=== PATIENT | female | born 1935 | race Two or more races ===

== ENCOUNTER 2017-07-23 18:41 | Inpatient (IN) | payer MEDICARE ==
[~2017-07-23] VITALS: Ht 152.4 cm; Wt 56.3 kg
[2017-07-23] VITALS (8 sets, daily range): BP systolic 104–124; BP diastolic 51–73
[2017-07-23 18:59] LABS: POTASSIUM ISTAT 5.4 mmol/L (3.5-5.0)
[2017-07-23] MEDS ORDERED: PROPOFOL 50 ML IV ONE ×2 (19:12→19:30)
[2017-07-23 19:14] LABS: BASO % 0 % (0-3); EOS % 2 % (0-3); HEMATOCRIT 32.9 % (36.0-47.0); HEMOGLOBIN 10.7 g/dL (12.0-15.5); LYMPH # 2.9 x10^3/uL (1.0-4.8); LYMPH % 21 % (24-48); MEAN CORPUSCULAR HEMOGLOBIN 32 pg (25-35); MEAN CORPUSCULAR HGB CONC 33 g/dL (31-37); MEAN CORPUSCULAR VOLUME 97 fL (79-100); MONO % 6 % (0-9); NEUT % 71 % (31-73); PLATELET COUNT 184 x10^3/uL (140-400); RED BLOOD COUNT 3.38 x10^6/uL (3.50-5.40); RED CELL DISTRIBUTION WIDTH 15.4 % (11.5-14.5)
[2017-07-23] MEDS ORDERED: IV NORMAL SALINE 500ML BAG 500 ML IV ONE ×2 (19:15→22:30)
[2017-07-23] MEDS ORDERED: ROCURONIUM 50 MG/5 ML VIAL. IV ONE (19:15)
[2017-07-23 19:24] LABS: HCO3 ABG 18 mmol/L (21-28); PCO2 ABG 44 mmHg (35-46); PH ABG 7.23 (7.35-7.45); PO2 ABG 84 mmHg (65-108); SAT O2 ABG 94 % (92-99)
[2017-07-23] MEDS ORDERED: VANCOMYCIN 1.25 GM in IV NORMAL SALINE 250ML 250 ML IV ONE (19:45)
[2017-07-23 19:51] LABS: INR 1.1 (0.8-1.1); PROTHROMBIN TIME PATIENT 13.7 SEC (11.7-14.0)
[2017-07-23] MEDS ORDERED: VANCOMYCIN 1.75 GM in IV DEXTROSE 5% 500 ML IV ONE (20:00)
[2017-07-23] MEDS ORDERED: ASPIRIN 300 MG SUPP.RECT PR ONE (20:00)
[2017-07-23] MEDS ORDERED: CEFEPIME HCL 1 GM in IV DEXTROSE 5% 50 ML IV ONE (20:00)
[2017-07-23] MEDS: IV NORMAL SALINE 1000ML BAG 1,000 ML IV SCH (20:10)
--- NOTE | 2017-07-23 20:14 | RAD ---
CT scan of the head without contrast 07/23/2017 Clinical History: Unresponsiveness. Technique: Unenhanced, contiguous, 5 mm axial sections were obtained through the head. Findings: No previous imaging studies are available for comparison. There is generalized parenchymal atrophy. Areas of decreased attenuation are seen within the periventricular and subcortical white matter of both cerebral hemispheres consistent with areas of small vessel ischemic disease. No acute parenchymal abnormality is seen. No extra-axial fluid collection is noted. No skull fracture is seen. Impression: No acute intracranial abnormality is seen. Electronically signed by: Kin Boateng MD (07/23/2017 8:11 PM) [facility]
[2017-07-23] MEDS ORDERED: IV NORMAL SALINE 1000ML BAG 1,000 ML IV ONE (20:30)
--- NOTE | 2017-07-23 20:31 | PHYS DOC ---
Past Medical History Past Medical History: CAD, Diabetes-Type I, Diabetes-Type II, GERD, High Cholesterol, Hypertension, Pneumonia, Renal Failure, Vascular Disease Past Surgical History: Other Additional Past Surgical Histo: carotid endarterectomy yesterday, coronary stents Alcohol Use: None Drug Use: None Social History Narrative: unknown-pt is unresponsive at this time Adult General Chief Complaint Chief Complaint: RESP ARREST HPI HPI Patient is a 81 year old female who presents with acute respiratory failure, apparently was dismissed from [facility] around 1 PM today postop from right carotid endarterectomy yesterday; arrived at home and was sleepy woke up with a subjective fever took some Tylenol and then woke up short time later with severe shortness of breath and she requested the eminence be called. Patient arrived with oxygen saturations of around 70% with accessory muscle use and poor air exchange with decreased mental status. No reports of chest pain or vomiting. History physical review of systems limited by patient's acuity and altered mentation. Family arrived sometime after the patient and more history was obtained from family members. Around 1 month ago patient was admitted to [facility] with an acute stroke at that time she was evaluated and found to have 70% blockage in the left carotid and 80% blockage in the right, history of coronary artery stents with diffuse coronary disease needing CABG but has not received yet due to the need for carotid surgery. History of renal insufficiency but unknown baseline creatinine. History of insulin-dependent diabetes. Takes Plavix. Per family patient is a full code. Review of Systems Review of Systems Constitutional: Denies fever or chills [] Eyes: Denies change in visual acuity, redness, or eye pain [] HENT: Denies nasal congestion or sore throat [] Respiratory: Denies cough or shortness of breath [] Cardiovascular: No additional information not addressed in HPI [] GI: Denies abdominal pain, nausea, vomiting, bloody stools or diarrhea [] : Denies dysuria or hematuria [] Musculoskeletal: Denies back pain or joint pain [] Integument: Denies rash or skin lesions [] Neurologic: Denies headache, focal weakness or sensory changes [] Endocrine: Denies polyuria or polydipsia [] Current Medications Current Medications Current Medications Medications (Trade) Dose Ordered Sig/Beryl Start Time Stop Time Status Last Admin Dose Admin Propofol 50 ml @ 0 mls/hr 1X ONCE 07/23/17 19:30 07/23/17 19:31 DC 07/23/17 19:30 9 MLS/HR Rocuronium [place] (Zemuron) 50 mg 1X ONCE 07/23/17 19:15 07/23/17 19:16 DC Sodium Chloride 500 ml @ 500 mls/hr 1X ONCE 07/23/17 19:15 07/23/17 20:14 DC 07/23/17 20:16 500 MLS/HR Vancomycin HCl 1.25 gm/Sodium Chloride 250 ml @ 166.667 mls/hr 1X ONCE 07/23/17 19:45 07/23/17 21:14 UNV Allergies Allergies Allergies Coded Allergies Type Severity Reaction Last Updated Verified ibuprofen Allergy Intermediate 07/23/17 Yes morphine Allergy Intermediate 07/23/17 Yes Physical Exam Physical Exam Constitutional: Well developed, well nourished, no acute distress, non-toxic appearance. [] HENT: Normocephalic, atraumatic, bilateral external ears normal, oropharynx moist, no oral exudates, nose normal. [] Eyes: PERRLA, EOMI, conjunctiva normal, no discharge. [] Neck: Normal range of motion, no tenderness, supple, no stridor. [] Cardiovascular:Heart rate regular rhythm, no murmur [] Lungs & Thorax: Bilateral breath sounds clear to auscultation [] Abdomen: Bowel sounds normal, soft, no tenderness, no masses, no pulsatile masses. [] Skin: Warm, dry, no erythema, no rash. [] Back: No tenderness, no CVA tenderness. [] Extremities: No tenderness, no cyanosis, no clubbing, ROM intact, no edema. [] Neurologic: Alert and oriented X 3, normal motor function, normal sensory function, no focal deficits noted. [] Psychologic: Affect normal, judgement normal, mood normal. [] Current Patient Data Vital Signs Vital Signs Date Time Temp Pulse Resp B/P (MAP) Pulse Ox O2 Delivery O2 Flow Rate FiO2 07/23/17 19:47 98 156/69 (98) 98 Ventilator 15.0 07/23/17 18:45 101.1 16 101.1 Lab Values Laboratory Tests Test 07/23/17 18:47 07/23/17 18:52 07/23/17 18:53 07/23/17 19:20 White Blood Count 14.0 x10^3/uL (4.0-11.0) H Red Blood Count 3.38 x10^6/uL (3.50-5.40) L Hemoglobin 10.7 g/dL (12.0-15.5) L Hematocrit 32.9 % (36.0-47.0) L Mean Corpuscular Volume 97 fL (79-100) Mean Corpuscular Hemoglobin 32 pg (25-35) Mean Corpuscular Hemoglobin Concent 33 g/dL (31-37) Red Cell Distribution Width 15.4 % (11.5-14.5) H Platelet Count 184 x10^3/uL (140-400) Neutrophils (%) (Auto) 71 % (31-73) Lymphocytes (%) (Auto) 21 % (24-48) L Monocytes (%) (Auto) 6 % (0-9) Eosinophils (%) (Auto) 2 % (0-3) Basophils (%) (Auto) 0 % (0-3) Neutrophils # (Auto) 9.9 x10^3uL (1.8-7.7) H Lymphocytes # (Auto) 2.9 x10^3/uL (1.0-4.8) Monocytes # (Auto) 0.9 x10^3/uL (0.0-1.1) Eosinophils # (Auto) 0.2 x10^3/uL (0.0-0.7) Basophils # (Auto) 0.0 x10^3/uL (0.0-0.2) Prothrombin Time 13.7 SEC (11.7-14.0) Prothrombin Time INR 1.1 (0.8-1.1) PTT 28 SEC (24-38) Lactic Acid Level 5.2 mmol/L (0.4-2.0) *H POC Troponin I 0.69 ng/ml (<0.08) POC Hemoglobin 11.2 g/dL (12-15) L POC Hematocrit 33 % (36-40) L POC Sodium 135 mmol/L (135-145) POC Potassium 5.4 mmol/L (3.5-5.0) H POC Chloride 106 mmol/L (98-110) POC Total CO2 18 mmol/L (23-32) L Anion Gap 17 mmol/L (6-14) H POC Blood Urea Nitrogen 44 mg/dL (8-26) H POC Creatinine 2.6 mg/dL (0.5-1.4) H Glucose Level 214 mg/dL (70-99) H POC Ionized Calcium (Warner) 1.04 mmol/L (1.13-1.32) L O2 Saturation 94 % (92-99) Arterial Blood pH 7.23 (7.35-7.45) L Arterial Blood pCO2 at Patient Temp 44 mmHg (35-46) Arterial Blood pO2 at Patient Temp 84 mmHg (65-108) Arterial Blood HCO3 18 mmol/L (21-28) L Arterial Blood Base Excess -9 mmol/L (-3-3) L FiO2 100 Laboratory Tests 07/23/17 18:47 Laboratory Tests 07/23/17 18:53 EKG EKG EKG shows sinus rhythm rate of 100 ST segment depression in V3 through V6 suggestive of possible ischemia no STEMI no Q waves QTC normal. My interpretation[] Radiology/Procedures Radiology/Procedures Chest x-ray demonstrates endotracheal tube in good position NG tube in the stomach with what appears to be a left lung infiltrate my interpretation[] Course & Med Decision Making Course & Med Decision Making Pertinent Labs and Imaging studies reviewed. (See chart for details) [Critical care time 70 minutes outside of separately billable procedures Patient was placed on BiPAP on arrival but with minimal improvement in terms O2 sats the maximum was around 80% patient still struggle to breathe so we shortly thereafter performed endotracheal intubation without complication. Patient was given IV fluids although we were judicious in terms of not giving her too much fluid given her history of CHF. She was given broad-spectrum antibiotics for her healthcare associated pneumonia. NG and Neville catheter were placed. Patient is making urine. Her oxygen level responded well to intubation. CT head excluded obvious bleed or stroke. The patient was given rectal aspirin for her NSTEMI. Extensive discussion with the family regarding poor prognosis given her multiple organ system failures. Contacted by phone the partner of Dr. Ruiz vascular surgeon. Contacted by phone the hospitalist Matthew, did present to the emergency department to see the patient here. Consultations were placed to cardiology, pulmonology, and nephrology. Procedure endotracheal intubation:] She was preoxygenated, given etomidate and succinylcholine, 7.5 endotracheal tube was placed using a Mac 4 blade no complications. She tolerated well. End-tidal CO2 was detected, equal breath sounds, fogging of the tube to confirm placement. Post intubation chest x-ray showed good placement. Dragon Disclaimer Dragon Disclaimer This electronic medical record was generated, in whole or in part, using a voice recognition dictation system. Departure Departure Impression: Primary Impression: Respiratory failure Additional Impressions: HCAP (healthcare-associated pneumonia) Acute renal failure NSTEMI (non-ST elevated myocardial infarction) Disposition: 09 ADMITTED INPATIENT Admitting Physician: Galen Castro Condition: CRITICAL Problem Qualifiers GRISELDA MENG MD Jul 23, 2017 20:31
[2017-07-23 21:48] LABS: FIO2 ABG 100
[2017-07-23 22:05] LABS: HCO3 ABG 18 mmol/L (21-28); PCO2 ABG 34 mmHg (35-46); PO2 ABG 65 mmHg (65-108); SAT O2 ABG 91 % (92-99)
[2017-07-23 22:22] LABS: FIO2 ABG 60; PH ABG 7.33 (7.35-7.45)
[2017-07-23] MEDS: PROPOFOL 100 ML IV PRN (22:43)
[2017-07-24] VITALS (23 sets, daily range): BP systolic 111–160; BP diastolic 47–81
--- NOTE | 2017-07-24 00:04 | HP ---
ADMIT DATE: 07/23/2017 CHIEF COMPLAINT: Respiratory distress. HISTORY OF PRESENT ILLNESS: The patient is a pleasant 81-year-old female who just had a right carotid endarterectomy yesterday at [facility]. She presented to the ER with respiratory failure. They tried BiPAP in the ER, but that did not work, they intubated her. She appears to have acute on chronic systolic and diastolic heart failure. Her BNP level is 5300. She also is having some azotemia with a BUN and creatinine of 38 and 1.2. She has some ST changes on her EKG. I have discussed the case with the ER physician. We are going to admit the patient to the ICU with consultation to Cardiology and Pulmonary Medicine. It should be noted she also has pneumonia on her chest x-ray. PAST MEDICAL HISTORY: CHF, diabetes, hypertension, coronary artery disease, hyperlipidemia, pneumonia. She had a carotid endarterectomy just yesterday at [facility], cardiac stents. ALLERGIES: IBUPROFEN, MORPHINE. FAMILY HISTORY: Diabetes. SOCIAL HISTORY: She does not drink, smoke or take drugs. MEDICATIONS: Reviewed. REVIEW OF SYSTEMS: Unobtainable, the patient is on the vent. PHYSICAL EXAMINATION: VITAL SIGNS: Temperature afebrile, pulse 100, respirations 20, blood pressure 124/60, O2 sat 99%. She is on a ventilator, 100% oxygen. HEART: Normal S1, S2. LUNGS: Diminished with right crackles. ABDOMEN: Soft, positive bowel sounds. EXTREMITIES: Trace edema. SKIN: Is thin. ENDOCRINE: No thyromegaly. LYMPHATICS: No cervical nodes. HEMATOPOIETIC: No bruising. LABORATORY DATA: Reviewed. ASSESSMENT AND PLAN: Respiratory failure secondary to multiple factors including pneumonia, congestive heart failure. She also has an element of possible acute cardiac event with a slightly elevated troponin of 0.[address] changes. The patient has been admitted to the Intensive Care Unit on the vent. Consult Pulmonary Medicine. Consult cardiology. Serial enzymes, serial EKGs, IV Lasix, IV antibiotics, breathing treatments. PROGNOSIS: Very guarded at best. CHAYITO LAWSON DO DR: KUSHAL/pancho JOB#: [id number] / [id number]
[2017-07-24] MEDS: IV NORMAL SALINE 1000ML BAG 1,000 ML IV SCH ×2 (01:05→10:00)
[2017-07-24] MEDS ORDERED: IV NORMAL SALINE 500ML BAG 500 ML IV ONE (01:30)
[2017-07-24] MEDS ORDERED: ETOMIDATE 20 MG/10 ML VIAL. IV ONE (01:55)
[2017-07-24] MEDS ORDERED: SUCCINYLCHOLINE 200 MG/10 ML VIAL. ONE (01:56)
[2017-07-24] MEDS: VANCOMYCIN PER PHARMACY MC PRN ×2 (02:09→14:37)
[2017-07-24] MEDS ORDERED: AMLO5TAB2 PO (03:50)
[2017-07-24] MEDS ORDERED: ASPI-482 PO (03:50)
[2017-07-24] MEDS ORDERED: HYDR-2758 PO (03:50)
[2017-07-24] MEDS ORDERED: PRAV20TA2 PO (03:50)
[2017-07-24] MEDS ORDERED: PANT40TA5 PO (03:50)
[2017-07-24] MEDS ORDERED: ASCO250T3 PO (03:50)
[2017-07-24] MEDS ORDERED: OMEG1CAP38 PO (03:50)
[2017-07-24] MEDS ORDERED: CHOL10003 PO (03:50)
[2017-07-24] MEDS ORDERED: METO-269 PO (03:50)
[2017-07-24] MEDS ORDERED: ISOS60TA2 PO (03:50)
[2017-07-24] MEDS ORDERED: INSU100C SQ (03:50)
[2017-07-24] MEDS ORDERED: NITR0.4T22 SL (03:50)
--- NOTE | 2017-07-24 06:19 | EKG ---
[facility] [address] [place] [address] Test Date: 2017-07-23 Test Time: 19:06:29 Pat Name: CRISTIAN LUDWIG Department: Room: 109 1 Gender: F Patient Registrar: : [id number] Requested By: GRISELDA MENG Order Number: [id number] Reading MD: Mateo Zazueta Measurements Intervals [place] Rate: 100 P: 40 ME: 170 QRS: 26 QRSD: 78 T: 36 QT: 328 QTc: 426 Interpretive Statements SINUS RHYTHM Diffuse anterolateral ischemia with [address] segment depression. Suspecet multivessel cad. Electronically Signed On 07-24-2017 22:08:46 CDT by Mateo Zazueta
[2017-07-24] MEDS ORDERED: HEPARIN 25,000UTS/500ML PREMIX 500 ML IV PRN (06:45)
[2017-07-24] MEDS: ANTI-COAG MONITOR BY PHARMACY. MC PRN ×2 (06:47→14:39)
[2017-07-24 06:52] LABS: HEMATOCRIT 27.6 % (36.0-47.0); HEMOGLOBIN 8.9 g/dL (12.0-15.5); RED BLOOD COUNT 2.84 x10^6/uL (3.50-5.40); RED CELL DISTRIBUTION WIDTH 15.3 % (11.5-14.5); WHITE BLOOD COUNT 11.4 x10^3/uL (4.0-11.0)
[2017-07-24 06:53] LABS: CALCIUM 7.6 mg/dL (8.5-10.1); CREATININE 2.3 mg/dL (0.6-1.0); GFR 20.4; MAGNESIUM 1.7 mg/dL (1.8-2.4); POTASSIUM 3.4 mmol/L (3.5-5.1)
[2017-07-24] MEDS ORDERED: HEPARIN for IV BOLUS 10,000 UNIT/10 ML VIAL. IV ONE (07:00)
[2017-07-24] MEDS: LACTOBACILLUS RHAMNOSUS GG 1 CAPSULE. PO SCH ×2 (07:31→22:04)
--- NOTE | 2017-07-24 07:41 | RAD ---
Portable chest, 07/23/2017: History: Respiratory failure, intubation No previous chest radiographs are available at this time for comparison purposes. An ET tube is in place with its tip located well above the prabha. An NG tube extends into the stomach. The heart appears to be within normal limits in size. The pulmonary vascularity demonstrates loss of vascular margination. There are perihilar and basilar infiltrates, left greater than right. No pleural fluid is seen. There is no evidence of pneumothorax. IMPRESSION: 1. The ET tube and NG tube are in satisfactory positions. 2. Bilateral perihilar and basilar infiltrates, left greater than right, suggesting pulmonary edema. Pneumonia cannot be excluded.
--- NOTE | 2017-07-24 07:45 | RAD ---
Portable chest, 07/24/2017: History: Pneumonia Comparison is made to yesterday's study. The tip of the ET tube lies 2 to 3 cm above the prabha. An NG tube extends into the stomach. The heart size is normal. The pulmonary infiltrates appear to have improved slightly. There is moderate residual left perihilar and basilar infiltrates. A small amount of pleural fluid contributing to the left basilar opacity cannot be excluded. No right-sided pleural fluid is seen. There is no evidence of pneumothorax. IMPRESSION: 1. Stable tube positions. 2. Pulmonary infiltrates have improved slightly, again most likely representing pulmonary edema.
[2017-07-24 07:53] LABS: HCO3 ABG 17 mmol/L (21-28); PCO2 ABG 25 mmHg (35-46); PH ABG 7.45 (7.35-7.45); PO2 ABG 129 mmHg (65-108); SAT O2 ABG 98 % (92-99)
[2017-07-24 08:28] LABS: FIO2 ABG 60
[2017-07-24] MEDS ORDERED: DEXTROSE 50% 25 GM / 50ML DISP.SYRIN. IV PRN ×2 (10:45→11:30)
[2017-07-24] MEDS: POTASSIUM CHLORIDE 10MEQ 100 ML IV SCH ×2 (11:23→12:57)
[2017-07-24] MEDS ORDERED: HYDROcodone/APAP 5/325MG 1 TAB TABLET PO PRN ×2 (11:30)
[2017-07-24] MEDS ORDERED: NITROGLYCERIN SUBLINGUAL 0.4 MG BOTTLE OF 25. SL PRN (11:30)
--- NOTE | 2017-07-24 11:46 | PDOC ---
PROGRESS NOTES Chief Complaint Chief Complaint Acute hypoxic respir failure ASSESSMENT AND PLAN: 1. Acute respir failure: sudden onset and CXR findings c/w flash pulm edema. intubated, sedated 2. NSTEMI: massive troponin release. cardiac consult 3. CAD: recent cardiac W/U with occluded stents (placed 2 yrs ago). planned CABG after bilat CEA. 4. PVD: R CEA on 07/[address] [facility] with 70% blockage 5. CKD: baseline unk, but family aware. monitor closely with lasix rx 6. Hyperkalemia: reversed with lasix. now low. cautious repletion. renal consult 7. DM2: on meal-dose insulin at home. start ISS q6h 8. Leukocytosis: reactive. 9. Anemia: suspect chronic dz, incl heart and kidney disease Condition: critical Prognosis: guarded D/w children: very selective hearing in discussion of the severity of their mother's condition. they want her full code. palliative care consult History of Present Illness History of Present Illness intubated, sedated Vitals Vitals Vital Signs Date Time Temp Pulse Resp B/P (MAP) Pulse Ox O2 Delivery O2 Flow Rate FiO2 07/24/17 10:00 73 18 143/60 (87) 100 Ventilator 07/24/17 08:00 98.7 98.7 07/23/17 20:45 15.0 Physical Exam General: Other (sedated) Heart: Other (tachy) Lungs: Crackles (and rhonchi) Abdomen: Soft Extremities: No edema Skin: No rashes Labs LABS Laboratory Tests Test 07/23/17 18:47 07/23/17 18:52 07/23/17 18:53 07/23/17 19:20 White Blood Count 14.0 x10^3/uL (4.0-11.0) Red Blood Count 3.38 x10^6/uL (3.50-5.40) Hemoglobin 10.7 g/dL (12.0-15.5) Hematocrit 32.9 % (36.0-47.0) Mean Corpuscular Volume 97 fL (79-100) Mean Corpuscular Hemoglobin 32 pg (25-35) Mean Corpuscular Hemoglobin Concent 33 g/dL (31-37) Red Cell Distribution Width 15.4 % (11.5-14.5) Platelet Count 184 x10^3/uL (140-400) Neutrophils (%) (Auto) 71 % (31-73) Lymphocytes (%) (Auto) 21 % (24-48) Monocytes (%) (Auto) 6 % (0-9) Eosinophils (%) (Auto) 2 % (0-3) Basophils (%) (Auto) 0 % (0-3) Neutrophils # (Auto) 9.9 x10^3uL (1.8-7.7) Lymphocytes # (Auto) 2.9 x10^3/uL (1.0-4.8) Monocytes # (Auto) 0.9 x10^3/uL (0.0-1.1) Eosinophils # (Auto) 0.2 x10^3/uL (0.0-0.7) Basophils # (Auto) 0.0 x10^3/uL (0.0-0.2) Prothrombin Time 13.7 SEC (11.7-14.0) Prothromb Time International Ratio 1.1 (0.8-1.1) Activated Partial Thromboplast Time 28 SEC (24-38) Lactic Acid Level 5.2 mmol/L (0.4-2.0) Bedside Troponin I 0.69 ng/ml (<0.08) Bedside Hemoglobin 11.2 g/dL (12-15) Bedside Hematocrit 33 % (36-40) Bedside Sodium 135 mmol/L (135-145) Bedside Potassium 5.4 mmol/L (3.5-5.0) Bedside Chloride 106 mmol/L (98-110) Bedside Total CO2 18 mmol/L (23-32) Anion Gap 17 mmol/L (6-14) Bedside Blood Urea Nitrogen 44 mg/dL (8-26) Bedside Creatinine 2.6 mg/dL (0.5-1.4) Glucose Level 214 mg/dL (70-99) Bedside Ionized Calcium (Warner) 1.04 mmol/L (1.13-1.32) O2 Saturation 94 % (92-99) Arterial Blood pH 7.23 (7.35-7.45) Arterial Blood pCO2 at Patient Temp 44 mmHg (35-46) Arterial Blood pO2 at Patient Temp 84 mmHg (65-108) Arterial Blood HCO3 18 mmol/L (21-28) Arterial Blood Base Excess -9 mmol/L (-3-3) FiO2 100 Test 07/23/17 21:45 07/24/17 00:20 07/24/17 05:00 07/24/17 05:30 O2 Saturation 91 % (92-99) Arterial Blood pH 7.33 (7.35-7.45) Arterial Blood pCO2 at Patient Temp 34 mmHg (35-46) Arterial Blood pO2 at Patient Temp 65 mmHg (65-108) Arterial Blood HCO3 18 mmol/L (21-28) Arterial Blood Base Excess -7 mmol/L (-3-3) FiO2 60 Lactic Acid Level 1.5 mmol/L (0.4-2.0) Troponin I Quantitative 10.629 ng/mL (0.000-0.055) White Blood Count 11.4 x10^3/uL (4.0-11.0) Red Blood Count 2.84 x10^6/uL (3.50-5.40) Hemoglobin 8.9 g/dL (12.0-15.5) Hematocrit 27.6 % (36.0-47.0) Mean Corpuscular Volume 97 fL (79-100) Mean Corpuscular Hemoglobin 31 pg (25-35) Mean Corpuscular Hemoglobin Concent 32 g/dL (31-37) Red Cell Distribution Width 15.3 % (11.5-14.5) Platelet Count 113 x10^3/uL (140-400) Sodium Level 137 mmol/L (136-145) Potassium Level 3.4 mmol/L (3.5-5.1) Chloride Level 104 mmol/L (98-107) Carbon Dioxide Level 18 mmol/L (21-32) Anion Gap 15 (6-14) Blood Urea Nitrogen 29 mg/dL (7-20) Creatinine 2.3 mg/dL (0.6-1.0) Estimated GFR (Cockcroft-Gault) 20.4 Glucose Level 119 mg/dL (70-99) Calcium Level 7.6 mg/dL (8.5-10.1) Magnesium Level 1.7 mg/dL (1.8-2.4) Test 07/24/17 07:45 O2 Saturation 98 % (92-99) Arterial Blood pH 7.45 (7.35-7.45) Arterial Blood pCO2 at Patient Temp 25 mmHg (35-46) Arterial Blood pO2 at Patient Temp 129 mmHg (65-108) Arterial Blood HCO3 17 mmol/L (21-28) Arterial Blood Base Excess -6 mmol/L (-3-3) FiO2 60 CARIDAD LIVINGSTON MD Jul 24, 2017 11:46
--- NOTE | 2017-07-24 11:56 | PDOC2 ---
CONSULT Date of Consult Date of Consult DATE: 07/24/17 TIME: 11:49 Reason for Consult Reason for Consult: RENAL FAILURE Referring Physician Referring Physician: LULU Identification/Chief Complaint Chief Complaint SOB Problems: Source Source: Chart review History of Present Illness Reason for Visit: THIS IS AN 81 YR OLD HERE WITH SOB. SHE IS INTUBATED WITH A DX OF CHF, PNEUMONIA AND RESP FAILURE. SHE HAS ALSO HAD AN MO. RECENTLY DISCHARGED FROM [facility] AFTER A CEA. SHE WAS ALSO TO GET A CABG ONCE SHE HEALED WELL FROM THIS. CR IS 2.3 AND K AND MAG ARE LOW. SHE HAS CKD STAGE 4 WITH A BASELINE CR IN THE 1.9-2.6 RANGE. SHE SEES MY PARTNER DR JUDD Past Medical History Cardiovascular: CAD, HTN, Hyperlipidemia Renal/: Chronic renal insuff Endocrine: Diabetes Past Surgical History Past Surgical History CEA Current Problem List Problem List Problems Medical Problems: (1) Acute renal failure Status: Acute (2) HCAP (healthcare-associated pneumonia) Status: Acute (3) NSTEMI (non-ST elevated myocardial infarction) Status: Acute Current Medications Current Medications Current Medications Sodium Chloride 500 ml @ 500 mls/hr 1X ONCE IV Last administered on 20:16; Start 07/23/17 at 19:15; Stop 07/23/17 at 20:14; Status DC Rocuronium [place] (Zemuron) 50 mg 1X ONCE IV Last administered on 07/23/17 19:15; Start 07/23/17 at 19:15; Stop 07/23/17 at 19:16; Status DC Propofol 50 ml @ As Directed STK-MED ONCE IV ; Start 07/23/17 at 19:12; Stop 07/23/17 at 19:13; Status DC Propofol 50 ml @ 0 mls/hr 1X ONCE IV Last administered on 07/23/17 19:30; Start 07/23/17 at 19:30; Stop 07/23/17 at 19:31; Status DC Cefepime HCl 1 gm/ Dextrose 50 ml @ 100 mls/hr Q24H IV ; Start 07/24/17 at 20: 00 Vancomycin HCl 1.25 gm/Sodium Chloride 250 ml @ 166.667 mls/hr 1X ONCE IV ; Start 07/23/17 at 19:45; Stop 07/23/17 at 21:14; Status UNV Cefepime HCl 1 gm/ Dextrose 50 ml @ 100 mls/hr 1X ONCE IV Last administered on 07/23/17 20:10; Start 07/23/17 at 20:00; Stop 07/23/17 at 20:29; Status DC Aspirin (Aspirin) 300 mg 1X ONCE [place] Last administered on 07/23/17 20:09; Start 07/23/17 at 20:00; Stop 07/23/17 at 20:01; Status DC Vancomycin HCl 1.75 gm/Dextrose 500 ml @ 250 mls/hr 1X ONCE IV Last administered on 07/23/17 21:12; Start 07/23/17 at 20:00; Stop 07/23/17 at 21 :59; Status DC Sodium Chloride 1,000 ml @ 150 mls/hr Q6H40M IV Last administered on 10:00; Start 07/23/17 at 20:01; Stop 07/24/17 at 20:00 Sodium Chloride 1,000 ml @ 1,000 mls/hr 1X ONCE IV Last administered on 07/23 20:30; Start 07/23/17 at 20:30; Stop 07/23/17 at 21:29; Status DC Vancomycin HCl (Vanco Per Pharmacy) 1 each PRN DAILY PRN MC SEE COMMENTS Last administered on 07/24/17 02:09; Start 07/23/17 at 21:30 Lactobacillus Rhamnosus (Culturelle) 1 cap BID PO ; Start 07/24/17 at 09:00 Sodium Chloride 500 ml @ 500 mls/hr 1X ONCE IV Last administered on 22:30; Start 07/23/17 at 22:30; Stop 07/23/17 at 23:29; Status DC Propofol 100 ml @ 0 mls/hr CONT PRN IV SEE I/O RECORD Last administered on 22:43; Start 07/23/17 at 22:15 Sodium Chloride 500 ml @ 500 mls/hr 1X ONCE IV Last administered on 01:30; Start 07/24/17 at 01:30; Stop 07/24/17 at 02:29; Status DC Etomidate (Amidate) 20 mg STK-MED ONCE IV ; Start 07/24/17 at 01:55; Stop at 01:56; Status DC Succinylcholine Chloride (Anectine) 200 mg STK-MED ONCE .ROUTE ; Start at 01:56; Stop 07/24/17 at 01:57; Status DC Vancomycin HCl 1 gm/Dextrose 250 ml @ 250 mls/hr Q48H IV ; Start 07/25/17 at 21:00 Vancomycin HCl 1 each 1X ONCE MC ; Start 07/27/17 at 20:30; Stop 07/27/17 at 20:31 Heparin Sodium (Porcine) (Heparin Sodium) 3,700 unit 1X ONCE IV Last administered on 07/24/17 07:56; Start 07/24/17 at 07:00; Stop 07/24/17 at 07 :01; Status DC Heparin Sodium/ Dextrose 500 ml @ 0 mls/hr CONT PRN IV SEE I/O RECORD Last administered on 07/24/17 07:57; Start 07/24/17 at 06:45 Heparin Sodium (Porcine) (Heparin Sodium) 1,550 unit PRN Q6HRS PRN IV FOR UFH LEVEL LESS THAN 0.2; Start 07/24/17 at 06:45 Info (Anti-Coagulation Monitoring By Pharmacy) 1 each PRN DAILY PRN MC SEE COMMENTS Last administered on 07/24/17 06:47; Start 07/24/17 at 07:00 Potassium Chloride 100 ml @ 100 mls/hr Q1H IV Last administered on 07/24/17 11:23; Start 07/24/17 at 11:00; Stop 07/24/17 at 12:59 Insulin Aspart (NovoLOG) 0-5 UNITS TIDWMEALS SQ ; Start 07/24/17 at 12:00; Stop 07/24/17 at 12:00; Status DC Dextrose (Dextrose 50%-Water Syringe) 12.5 gm PRN Q15MIN PRN IV SEE COMMENTS; Start 07/24/17 at 10:45 Insulin Aspart (NovoLOG) 0-5 UNITS Q6HRS SQ ; Start 07/24/17 at 12:00; Stop at 12:00; Status DC Amlodipine Besylate (Norvasc) 5 mg DAILY PO ; Start 07/25/17 at 09:00 Aspirin (Ecotrin) 81 mg DAILY PO ; Start 07/25/17 at 09:00 Vitamin D (Vitamin D3) 1,000 unit DAILY PO ; Start 07/25/17 at 09:00 Acetaminophen/ Hydrocodone Bitart (Lortab 5/325) 1 tab PRN Q4HRS PRN PO PAIN; Start 07/24/17 at 11:30 Acetaminophen/ Hydrocodone Bitart (Lortab 5/325) 2 tab PRN Q4HRS PRN PO PAIN; Start 07/24/17 at 11:30 Nitroglycerin (Nitrostat) 0.4 mg PRN Q5MIN PRN SL CHEST PAIN; Start 07/24/17 at 11:30 Pantoprazole Sodium (Protonix) 40 mg DAILYAC PO ; Start 07/25/17 at 07:30 Isosorbide Mononitrate (Imdur) 60 mg DAILY PO ; Start 07/25/17 at 09:00 Metoprolol Succinate (Toprol Xl) 50 mg DAILY PO ; Start 07/25/17 at 09:00 Fish Oil (Fish Oil) 1,000 mg DAILY PO ; Start 07/25/17 at 09:00 Atorvastatin Calcium (Lipitor) 5 mg QHS PO ; Start 07/24/17 at 21:00 Insulin Aspart (NovoLOG) 0-7 UNITS TIDWMEALS SQ ; Start 07/24/17 at 12:00 Dextrose (Dextrose 50%-Water Syringe) 12.5 gm PRN Q15MIN PRN IV SEE COMMENTS; Start 07/24/17 at 11:30; Status UNV Active Scripts Active Reported Pravastatin Sodium 20 Mg Tablet 20 Mg PO DAILY Pantoprazole Sodium 40 Mg Tablet. 40 Mg PO DAILY [place] 3 Fish Oil Softgel ([place]-3 Fatty Acids/Fish Oil) 1 Each Capsule. 1,000 Mg PO DAILY Toprol Xl (Metoprolol Succinate) 50 Mg Tab.er.24h 1 Tab PO DAILY Isosorbide Mononitrate Er (Isosorbide Mononitrate) 60 Mg Tab.er.24h 1 Tab PO DAILY Humalog (Insulin Lispro) 100 Unit/1 Ml Cartridge 5-8 Unit SQ TIDBFRMEAL Vitamin D3 (Cholecalciferol (Vitamin D3)) 1,000 Unit Tablet 1 Tab PO DAILY Aspir 81 (Aspirin) 81 Mg Tablet. 1 Tab PO DAILY Ascorbic Acid 250 Mg Tablet 250 Mg PO Hydrocodone-Apap 5-325 (Hydrocodone Bit/Acetaminophen) 1 Each Tablet 2 Tab PO PRN Q4HRS PRN Hydrocodone-Apap 5-325 (Hydrocodone Bit/Acetaminophen) 1 Each Tablet 1 Tab PO PRN Q4HRS PRN Amlodipine Besylate 5 Mg Tablet 5 Mg PO DAILY Allergies Allergies: Coded Allergies: ibuprofen (Verified Allergy, Intermediate, 07/23/17) Pt unresponsive at this time morphine (Verified Allergy, Intermediate, 07/23/17) Pt unresponsive at this time ROS Review of System UNABLE TO OBTAIN Physical Exam General: Alert, Oriented X3, Cooperative HEENT: Atraumatic, PERRLA Lungs: Clear to auscultation, Other (BASILAR RALES CTA ANT) Heart: Regular rate, Normal S1, Normal S2 Abdomen: Normal bowel sounds, Soft, No tenderness Extremities: No clubbing, No cyanosis, No edema Neuro: Other (SEDATED) Psych/Mental Status: Other (SEDATED) MUSCULOSKELETAL: No joint tenderness, No deformity, No swelling Vitals VITALS Vital Signs Date Time Temp Pulse Resp B/P (MAP) Pulse Ox O2 Delivery O2 Flow Rate FiO2 07/24/17 10:00 73 18 143/60 (87) 100 Ventilator 07/24/17 08:00 98.7 98.7 07/23/17 20:45 15.0 Labs Labs Laboratory Tests Test 07/23/17 18:47 07/23/17 18:52 07/23/17 18:53 07/23/17 19:20 White Blood Count 14.0 x10^3/uL (4.0-11.0) Red Blood Count 3.38 x10^6/uL (3.50-5.40) Hemoglobin 10.7 g/dL (12.0-15.5) Hematocrit 32.9 % (36.0-47.0) Mean Corpuscular Volume 97 fL (79-100) Mean Corpuscular Hemoglobin 32 pg (25-35) Mean Corpuscular Hemoglobin Concent 33 g/dL (31-37) Red Cell Distribution Width 15.4 % (11.5-14.5) Platelet Count 184 x10^3/uL (140-400) Neutrophils (%) (Auto) 71 % (31-73) Lymphocytes (%) (Auto) 21 % (24-48) Monocytes (%) (Auto) 6 % (0-9) Eosinophils (%) (Auto) 2 % (0-3) Basophils (%) (Auto) 0 % (0-3) Neutrophils # (Auto) 9.9 x10^3uL (1.8-7.7) Lymphocytes # (Auto) 2.9 x10^3/uL (1.0-4.8) Monocytes # (Auto) 0.9 x10^3/uL (0.0-1.1) Eosinophils # (Auto) 0.2 x10^3/uL (0.0-0.7) Basophils # (Auto) 0.0 x10^3/uL (0.0-0.2) Prothrombin Time 13.7 SEC (11.7-14.0) Prothromb Time International Ratio 1.1 (0.8-1.1) Activated Partial Thromboplast Time 28 SEC (24-38) Lactic Acid Level 5.2 mmol/L (0.4-2.0) Bedside Troponin I 0.69 ng/ml (<0.08) Bedside Hemoglobin 11.2 g/dL (12-15) Bedside Hematocrit 33 % (36-40) Bedside Sodium 135 mmol/L (135-145) Bedside Potassium 5.4 mmol/L (3.5-5.0) Bedside Chloride 106 mmol/L (98-110) Bedside Total CO2 18 mmol/L (23-32) Anion Gap 17 mmol/L (6-14) Bedside Blood Urea Nitrogen 44 mg/dL (8-26) Bedside Creatinine 2.6 mg/dL (0.5-1.4) Glucose Level 214 mg/dL (70-99) Bedside Ionized Calcium (Warner) 1.04 mmol/L (1.13-1.32) O2 Saturation 94 % (92-99) Arterial Blood pH 7.23 (7.35-7.45) Arterial Blood pCO2 at Patient Temp 44 mmHg (35-46) Arterial Blood pO2 at Patient Temp 84 mmHg (65-108) Arterial Blood HCO3 18 mmol/L (21-28) Arterial Blood Base Excess -9 mmol/L (-3-3) FiO2 100 Test 07/23/17 21:45 07/24/17 00:20 07/24/17 05:00 07/24/17 05:30 O2 Saturation 91 % (92-99) Arterial Blood pH 7.33 (7.35-7.45) Arterial Blood pCO2 at Patient Temp 34 mmHg (35-46) Arterial Blood pO2 at Patient Temp 65 mmHg (65-108) Arterial Blood HCO3 18 mmol/L (21-28) Arterial Blood Base Excess -7 mmol/L (-3-3) FiO2 60 Lactic Acid Level 1.5 mmol/L (0.4-2.0) Troponin I Quantitative 10.629 ng/mL (0.000-0.055) White Blood Count 11.4 x10^3/uL (4.0-11.0) Red Blood Count 2.84 x10^6/uL (3.50-5.40) Hemoglobin 8.9 g/dL (12.0-15.5) Hematocrit 27.6 % (36.0-47.0) Mean Corpuscular Volume 97 fL (79-100) Mean Corpuscular Hemoglobin 31 pg (25-35) Mean Corpuscular Hemoglobin Concent 32 g/dL (31-37) Red Cell Distribution Width 15.3 % (11.5-14.5) Platelet Count 113 x10^3/uL (140-400) Sodium Level 137 mmol/L (136-145) Potassium Level 3.4 mmol/L (3.5-5.1) Chloride Level 104 mmol/L (98-107) Carbon Dioxide Level 18 mmol/L (21-32) Anion Gap 15 (6-14) Blood Urea Nitrogen 29 mg/dL (7-20) Creatinine 2.3 mg/dL (0.6-1.0) Estimated GFR (Cockcroft-Gault) 20.4 Glucose Level 119 mg/dL (70-99) Calcium Level 7.6 mg/dL (8.5-10.1) Magnesium Level 1.7 mg/dL (1.8-2.4) Test 07/24/17 07:45 O2 Saturation 98 % (92-99) Arterial Blood pH 7.45 (7.35-7.45) Arterial Blood pCO2 at Patient Temp 25 mmHg (35-46) Arterial Blood pO2 at Patient Temp 129 mmHg (65-108) Arterial Blood HCO3 17 mmol/L (21-28) Arterial Blood Base Excess -6 mmol/L (-3-3) FiO2 60 Laboratory Tests Test 07/23/17 18:47 07/23/17 18:52 07/23/17 18:53 07/23/17 19:20 White Blood Count 14.0 x10^3/uL (4.0-11.0) Red Blood Count 3.38 x10^6/uL (3.50-5.40) Hemoglobin 10.7 g/dL (12.0-15.5) Hematocrit 32.9 % (36.0-47.0) Mean Corpuscular Volume 97 fL (79-100) Mean Corpuscular Hemoglobin 32 pg (25-35) Mean Corpuscular Hemoglobin Concent 33 g/dL (31-37) Red Cell Distribution Width 15.4 % (11.5-14.5) Platelet Count 184 x10^3/uL (140-400) Neutrophils (%) (Auto) 71 % (31-73) Lymphocytes (%) (Auto) 21 % (24-48) Monocytes (%) (Auto) 6 % (0-9) Eosinophils (%) (Auto) 2 % (0-3) Basophils (%) (Auto) 0 % (0-3) Neutrophils # (Auto) 9.9 x10^3uL (1.8-7.7) Lymphocytes # (Auto) 2.9 x10^3/uL (1.0-4.8) Monocytes # (Auto) 0.9 x10^3/uL (0.0-1.1) Eosinophils # (Auto) 0.2 x10^3/uL (0.0-0.7) Basophils # (Auto) 0.0 x10^3/uL (0.0-0.2) Prothrombin Time 13.7 SEC (11.7-14.0) Prothromb Time International Ratio 1.1 (0.8-1.1) Activated Partial Thromboplast Time 28 SEC (24-38) Lactic Acid Level 5.2 mmol/L (0.4-2.0) Bedside Troponin I 0.69 ng/ml (<0.08) Bedside Hemoglobin 11.2 g/dL (12-15) Bedside Hematocrit 33 % (36-40) Bedside Sodium 135 mmol/L (135-145) Bedside Potassium 5.4 mmol/L (3.5-5.0) Bedside Chloride 106 mmol/L (98-110) Bedside Total CO2 18 mmol/L (23-32) Anion Gap 17 mmol/L (6-14) Bedside Blood Urea Nitrogen 44 mg/dL (8-26) Bedside Creatinine 2.6 mg/dL (0.5-1.4) Glucose Level 214 mg/dL (70-99) Bedside Ionized Calcium (Warner) 1.04 mmol/L (1.13-1.32) O2 Saturation 94 % (92-99) Arterial Blood pH 7.23 (7.35-7.45) Arterial Blood pCO2 at Patient Temp 44 mmHg (35-46) Arterial Blood pO2 at Patient Temp 84 mmHg (65-108) Arterial Blood HCO3 18 mmol/L (21-28) Arterial Blood Base Excess -9 mmol/L (-3-3) FiO2 100 Test 07/23/17 21:45 07/24/17 00:20 07/24/17 05:00 07/24/17 05:30 O2 Saturation 91 % (92-99) Arterial Blood pH 7.33 (7.35-7.45) Arterial Blood pCO2 at Patient Temp 34 mmHg (35-46) Arterial Blood pO2 at Patient Temp 65 mmHg (65-108) Arterial Blood HCO3 18 mmol/L (21-28) Arterial Blood Base Excess -7 mmol/L (-3-3) FiO2 60 Lactic Acid Level 1.5 mmol/L (0.4-2.0) Troponin I Quantitative 10.629 ng/mL (0.000-0.055) White Blood Count 11.4 x10^3/uL (4.0-11.0) Red Blood Count 2.84 x10^6/uL (3.50-5.40) Hemoglobin 8.9 g/dL (12.0-15.5) Hematocrit 27.6 % (36.0-47.0) Mean Corpuscular Volume 97 fL (79-100) Mean Corpuscular Hemoglobin 31 pg (25-35) Mean Corpuscular Hemoglobin Concent 32 g/dL (31-37) Red Cell Distribution Width 15.3 % (11.5-14.5) Platelet Count 113 x10^3/uL (140-400) Sodium Level 137 mmol/L (136-145) Potassium Level 3.4 mmol/L (3.5-5.1) Chloride Level 104 mmol/L (98-107) Carbon Dioxide Level 18 mmol/L (21-32) Anion Gap 15 (6-14) Blood Urea Nitrogen 29 mg/dL (7-20) Creatinine 2.3 mg/dL (0.6-1.0) Estimated GFR (Cockcroft-Gault) 20.4 Glucose Level 119 mg/dL (70-99) Calcium Level 7.6 mg/dL (8.5-10.1) Magnesium Level 1.7 mg/dL (1.8-2.4) Test 07/24/17 07:45 O2 Saturation 98 % (92-99) Arterial Blood pH 7.45 (7.35-7.45) Arterial Blood pCO2 at Patient Temp 25 mmHg (35-46) Arterial Blood pO2 at Patient Temp 129 mmHg (65-108) Arterial Blood HCO3 17 mmol/L (21-28) Arterial Blood Base Excess -6 mmol/L (-3-3) FiO2 60 Assessment/Plan Assessment/Plan IMP RESP FAILURE ACUTE CHF-PROB SYSTOLIC PNEUMONIA CAD-WAS NEEDING A CABG-WAS TO HAPPEN AT [facility] ACUTE MYOCARDIAL INFARCTION DM II HTN HX LOW MAG LOW K CKD STAGE 4 WITH CR AT BASELINE NOW - 2.3 PLAN IVF'S ANTIBIOTICS CARDIOLOGY EVAL REPLACE MAG KRISTIN K IVON COOPER MD Jul 24, 2017 11:56
--- NOTE | 2017-07-24 11:57 | PDOC2 ---
CARDIAC CONSULT DATE OF CONSULT Date of Consult DATE: 07/24/17 TIME: 11:11 REASON FOR CONSULT Reason for Consult: NSTEMI, CAD REFERRING PHYSICIAN Referring Physician: Don SOURCE Source: Caregiver (daughter), Chart review, Patient HISTORY OF PRESENT ILLNESS HISTORY OF PRESENT ILLNESS This is an 81 yo female admitted for complains of SOA. Upona dmission she was noted with NSTEMI and pulmonary edema. She was recently noted with multivessel disease accdg to daughters description. She was noted with NC last month per [facility] and was recommended for CABG. She has CAD and her last stents was 10 yrs ago. She was deemed with bilateral severe carotid stenosis. Prior to CABG, carotid CEA needs to be done. Right carotid endarterectomy was done and she was released the other day. While she was at home yesterday, she was feeling nauseated, no CP. She was told that this may be from pain pills. She then started having SOA and it was not getting better. She typically stays with her daughter at [facility] but was at her other daughter at [place] thus ending up at [facility] instead of [facility]. She is positive for CAD, CKD, DM2, HLP, HTN and no CVA, VTE nor arrhythmia. Presently daughter gave me the details and pt uis currently intubated,. PAST MEDICAL HISTORY Cardiovascular: CAD, HTN, Hyperlipidemia Pulmonary: No pertinent hx CENTRAL NERVOUS SYSTEM: Other (No pertinent history) GI: No pertinent hx Heme/Onc: No pertinent hx Hepatobiliary: No pertinent hx Psych: No pertinent hx Musculoskeletal: Osteoarthritis Rheumatologic: No pertinent hx Infectious disease: No pertinent hx ENT: No pertinent hx Renal/: Chronic renal insuff Endocrine: Diabetes (2) Dermatology: No pertinent hx PAST SURGICAL HISTORY Past Surgical History: Cataract Removal, Other (right carotid endarterectomy; PCI/stent 10 yrs ago x2 stents) FAMILY HISTORY Family History noncontributory to CV SOCIAL HISTORY Smoke: No ALCOHOL: none Drugs: None Lives: with Family CURRENT MEDICATIONS CURRENT MEDICATIONS Current Medications Medications (Trade) Dose Ordered Sig/Beryl Route PRN Reason Start Time Stop Time Status Last Admin Dose Admin Sodium Chloride 500 ml @ 500 mls/hr 1X ONCE IV 07/23/17 19:15 07/23/17 20:14 DC 07/23/17 20:16 Rocuronium [place] (Zemuron) 50 mg 1X ONCE IV 07/23/17 19:15 07/23/17 19:16 DC 07/23/17 19:15 Propofol 50 ml @ 0 mls/hr 1X ONCE IV 07/23/17 19:30 07/23/17 19:31 DC 07/23/17 19:30 Cefepime HCl 1 gm/ Dextrose 50 ml @ 100 mls/hr 1X ONCE IV 07/23/17 20:00 07/23/17 20:29 DC 07/23/17 20:10 Aspirin (Aspirin) 300 mg 1X ONCE SC 07/23/17 20:00 07/23/17 20:01 DC 07/23/17 20:09 Vancomycin HCl 1.75 gm/Dextrose 500 ml @ 250 mls/hr 1X ONCE IV 07/23/17 20:00 07/23/17 21:59 DC 07/23/17 21:12 Sodium Chloride 1,000 ml @ 150 mls/hr Q6H40M IV 07/23/17 20:01 07/24/17 20:00 07/24/17 10:00 Sodium Chloride 1,000 ml @ 1,000 mls/hr 1X ONCE IV 07/23/17 20:30 07/23/17 21:29 DC 07/23/17 20:30 Vancomycin HCl (Vanco Per Pharmacy) 1 each PRN DAILY PRN MC SEE COMMENTS 07/23/17 21:30 07/24/17 02:09 Sodium Chloride 500 ml @ 500 mls/hr 1X ONCE IV 07/23/17 22:30 07/23/17 23:29 DC 07/23/17 22:30 Propofol 100 ml @ 0 mls/hr CONT PRN IV SEE I/O RECORD 07/23/17 22:15 07/23/17 22:43 Sodium Chloride 500 ml @ 500 mls/hr 1X ONCE IV 07/24/17 01:30 07/24/17 02:29 DC 07/24/17 01:30 Heparin Sodium (Porcine) (Heparin Sodium) 3,700 unit 1X ONCE IV 07/24/17 07:00 07/24/17 07:01 DC 07/24/17 07:56 Heparin Sodium/ Dextrose 500 ml @ 0 mls/hr CONT PRN IV SEE I/O RECORD 07/24/17 06:45 07/24/17 07:57 Info (Anti-Coagulation Monitoring By Pharmacy) 1 each PRN DAILY PRN MC SEE COMMENTS 07/24/17 07:00 07/24/17 06:47 ALLERGIES ALLERGIES: Coded Allergies: ibuprofen (Verified Allergy, Intermediate, 07/23/17) Pt unresponsive at this time morphine (Verified Allergy, Intermediate, 07/23/17) Pt unresponsive at this time ROS Review of System unreliable and intubated PHYSICAL EXAM General: No acute distress, Other (sedated) HEENT: Atraumatic, Mucous membr. moist/pink Lungs: Other (basilar crackles) Heart: Regular rate (SR), Other (S3, diffuse 5/6 systolic murmur ) Abdomen: Soft Extremities: No cyanosis, No edema Skin: No breakdown, No significant lesion Neuro: Other (sedated) MUSCULOSKELETAL: Osteoarthritic changes both hands VITALS VITALS Vital Signs Date Time Temp Pulse Resp B/P (MAP) Pulse Ox O2 Delivery O2 Flow Rate FiO2 07/24/17 10:00 73 18 143/60 (87) 100 Ventilator 07/24/17 08:00 98.7 98.7 07/23/17 20:45 15.0 LABS Lab: Laboratory Tests Test 07/23/17 18:47 07/23/17 18:52 07/23/17 18:53 07/23/17 19:20 White Blood Count 14.0 x10^3/uL (4.0-11.0) Red Blood Count 3.38 x10^6/uL (3.50-5.40) Hemoglobin 10.7 g/dL (12.0-15.5) Hematocrit 32.9 % (36.0-47.0) Mean Corpuscular Volume 97 fL (79-100) Mean Corpuscular Hemoglobin 32 pg (25-35) Mean Corpuscular Hemoglobin Concent 33 g/dL (31-37) Red Cell Distribution Width 15.4 % (11.5-14.5) Platelet Count 184 x10^3/uL (140-400) Neutrophils (%) (Auto) 71 % (31-73) Lymphocytes (%) (Auto) 21 % (24-48) Monocytes (%) (Auto) 6 % (0-9) Eosinophils (%) (Auto) 2 % (0-3) Basophils (%) (Auto) 0 % (0-3) Neutrophils # (Auto) 9.9 x10^3uL (1.8-7.7) Lymphocytes # (Auto) 2.9 x10^3/uL (1.0-4.8) Monocytes # (Auto) 0.9 x10^3/uL (0.0-1.1) Eosinophils # (Auto) 0.2 x10^3/uL (0.0-0.7) Basophils # (Auto) 0.0 x10^3/uL (0.0-0.2) Prothrombin Time 13.7 SEC (11.7-14.0) Prothromb Time International Ratio 1.1 (0.8-1.1) Activated Partial Thromboplast Time 28 SEC (24-38) Lactic Acid Level 5.2 mmol/L (0.4-2.0) Bedside Troponin I 0.69 ng/ml (<0.08) Bedside Hemoglobin 11.2 g/dL (12-15) Bedside Hematocrit 33 % (36-40) Bedside Sodium 135 mmol/L (135-145) Bedside Potassium 5.4 mmol/L (3.5-5.0) Bedside Chloride 106 mmol/L (98-110) Bedside Total CO2 18 mmol/L (23-32) Anion Gap 17 mmol/L (6-14) Bedside Blood Urea Nitrogen 44 mg/dL (8-26) Bedside Creatinine 2.6 mg/dL (0.5-1.4) Glucose Level 214 mg/dL (70-99) Bedside Ionized Calcium (Warner) 1.04 mmol/L (1.13-1.32) O2 Saturation 94 % (92-99) Arterial Blood pH 7.23 (7.35-7.45) Arterial Blood pCO2 at Patient Temp 44 mmHg (35-46) Arterial Blood pO2 at Patient Temp 84 mmHg (65-108) Arterial Blood HCO3 18 mmol/L (21-28) Arterial Blood Base Excess -9 mmol/L (-3-3) FiO2 100 Test 07/23/17 21:45 07/24/17 00:20 07/24/17 05:00 07/24/17 05:30 O2 Saturation 91 % (92-99) Arterial Blood pH 7.33 (7.35-7.45) Arterial Blood pCO2 at Patient Temp 34 mmHg (35-46) Arterial Blood pO2 at Patient Temp 65 mmHg (65-108) Arterial Blood HCO3 18 mmol/L (21-28) Arterial Blood Base Excess -7 mmol/L (-3-3) FiO2 60 Lactic Acid Level 1.5 mmol/L (0.4-2.0) Troponin I Quantitative 10.629 ng/mL (0.000-0.055) White Blood Count 11.4 x10^3/uL (4.0-11.0) Red Blood Count 2.84 x10^6/uL (3.50-5.40) Hemoglobin 8.9 g/dL (12.0-15.5) Hematocrit 27.6 % (36.0-47.0) Mean Corpuscular Volume 97 fL (79-100) Mean Corpuscular Hemoglobin 31 pg (25-35) Mean Corpuscular Hemoglobin Concent 32 g/dL (31-37) Red Cell Distribution Width 15.3 % (11.5-14.5) Platelet Count 113 x10^3/uL (140-400) Sodium Level 137 mmol/L (136-145) Potassium Level 3.4 mmol/L (3.5-5.1) Chloride Level 104 mmol/L (98-107) Carbon Dioxide Level 18 mmol/L (21-32) Anion Gap 15 (6-14) Blood Urea Nitrogen 29 mg/dL (7-20) Creatinine 2.3 mg/dL (0.6-1.0) Estimated GFR (Cockcroft-Gault) 20.4 Glucose Level 119 mg/dL (70-99) Calcium Level 7.6 mg/dL (8.5-10.1) Magnesium Level 1.7 mg/dL (1.8-2.4) Test 07/24/17 07:45 O2 Saturation 98 % (92-99) Arterial Blood pH 7.45 (7.35-7.45) Arterial Blood pCO2 at Patient Temp 25 mmHg (35-46) Arterial Blood pO2 at Patient Temp 129 mmHg (65-108) Arterial Blood HCO3 17 mmol/L (21-28) Arterial Blood Base Excess -6 mmol/L (-3-3) FiO2 60 ASSESSMENT/PLAN ASSESSMENT/PLAN 1. NSTEMI: Troponin 10.6. EKG shows inferolateral and anterior ST depression 2. S/P RCEA with bovine patch: 07/22/2017 3. Acute diastolic CHF/Pulmonary edema: intubated 4. Diffuse Systolic murmur 5. LISSETTE on CKD: nephrology on board 6. Hx of HTN/HLP/DM2 7. CAD: PCI/stent 10 yrs ago, very recently evaluated with LHC and needing CABG but carotids needs addressing first per daughter. 8. Sepsis 9. Anemia: Hgb decrease to 8.9, PLT decreasing as well, defer to PCP Recommendations 1. Await TTE. Will obtain cardiac records. 2. Heparin per protocol. 3. ASA 4. 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 Problems: TATIANNA FERNANDEZ SSRS REPORT DEVELOPER Jul 24, 2017 11:57
[2017-07-24] MEDS: INSULIN ASPART 300 UNITS/3 ML INSULN.PEN SQ SCH ×3 (12:00→18:00)
[2017-07-24] MEDS ORDERED: INSULIN ASPART 300 UNITS/3 ML INSULN.PEN SQ SCH ×2 (12:00)
[2017-07-24 12:22] LABS: CHOLESTEROL/HDL RATIO 5.3
--- NOTE | 2017-07-24 12:46 | CARD ---
APPROVED REPORT EXAM: Two-dimensional and M-mode echocardiogram with Doppler and color Doppler. Other Information Quality : Good Technically limited study due to intubation. INDICATION Non STEMI 2D DIMENSIONS RVDd2.7 (2.9-3.5cm)Left Atrium(2D)4.3 (1.6-4.0cm) IVSd1.5 (0.7-1.1cm)Aortic Root(2D)2.9 (2.0-3.7cm) LVDd3.6 (3.9-5.9cm)LVOT Diameter1.9 (1.8-2.4cm) PWd1.5 (0.7-1.1cm)LVDs2.7 (2.5-4.0cm) FS (%) 27.0 %SV26.8 ml LVEF(%)55.0 (>50%) M-Mode DIMENSIONS Aortic Cusp Exc1.07 (1.5-2.0cm) Aortic Valve AoV Peak Clark.246.0cm/sAoV VTI53.0cm AO Peak GR.24.2mmHgLVOT VTI 24.88cm AO Mean GR.14mmHgAVA (VTI)1.40cm2 Mitral Valve MV E Zscplvly08.2cm/sMV DECEL JHNN666la MV A Zfmtoiux692.0cm/sE/A Ratio0.7 TDI Lateral E' P. V8.17cm/sMedial E' P. V4.96cm/s E/Lateral E'10.1E/Medial E'16.6 Tricuspid Valve TR P. Beprgykv937ak/sRAP QFAODTGK1ulSa TR Peak Gr.62zaKfJSSF88rfHo Pulmonary Vein S1 Qsnxrydb35.2cm/sS2 Dftisccc73.16cm/s D2 Ehnlgojm03.2cm/s LEFT VENTRICLE The left ventricle is normal size. There is mild to moderate concentric left ventricular hypertrophy. The left ventricular systolic function is normal and the ejection fraction is within normal range. T he Ejection Fraction is 55-60%. Suboptimal images but grossly normal wall motion. Transmitral Doppler flow pattern is Grade I-abnormal relaxation pattern. RIGHT VENTRICLE The right ventricle is normal size. The right ventricular systolic function is normal. ATRIA The left atrium is mildly dilated. The right atrium size is normal. The interatrial septum is intact with no evidence for an atrial septal defect or patent foramen ovale as noted on 2-D or Doppler imagi ng. AORTIC VALVE The aortic valve is calcified and displays decreased opening. Doppler and Color Flow revealed no sign ificant aortic regurgitation. Calculated aortic valve area is 1.4 cm2 with maximum pressure gradient of 26 mmHg and mean pressure gradient of 15 mmHg. Doppler and color-flow analysis revealed mild aorti c stenosis but visually the valve appears moderately stenotic. MITRAL VALVE The mitral valve is normal in structure and function. There is no evidence of mitral valve prolapse. There is no mitral valve stenosis. Doppler and Color-flow revealed trace to mild mitral regurgitation . TRICUSPID VALVE The tricuspid valve is normal in structure and function. Doppler and Color Flow revealed trace tricus pid regurgitation.There is moderate pulmonary hypertension.The PA pressure was estimated at 44 mmHg. There is no tricuspid valve stenosis. PULMONIC VALVE Doppler and Color Flow revealed trace to mild pulmonic valvular regurgitation. There is no pulmonic v alvular stenosis. GREAT VESSELS The aortic root is normal in size. The ascending aorta is normal in size. The IVC is dilated and efra apses >50% with inspiration. PERICARDIAL EFFUSION There is no evidence of significant pericardial effusion. Critical Notification Critical Value: No <Conclusion> The left ventricular systolic function is normal and the ejection fraction is within normal range. Th e Ejection Fraction is 55-60%. Suboptimal images but grossly normal wall motion. Calculated aortic valve area is 1.4 cm2 with maximum pressure gradient of 26 mmHg and mean pressure g radient of 15 mmHg. Doppler and color-flow analysis revealed mild aortic stenosis but visually the va lve appears moderately stenotic. Doppler and Color Flow revealed trace tricuspid regurgitation.There is moderate pulmonary hypertensio n.The PA pressure was estimated at 44 mmHg.
[2017-07-24] MEDS ORDERED: MAGNESIUM SULFATE 1GM 100 ML IV ONE (13:00)
--- NOTE | 2017-07-24 13:23 | PDOC2 ---
PALLIATIVE CARE Palliative Care Note Palliative Care Consult requested by Dr. Turner to address goals of care. Information obtained from medical record. ASSESSMENT AND PLAN per record 1. Acute respir failure: sudden onset and CXR findings c/w flash pulm edema. intubated, sedated 2. NSTEMI: massive troponin release. cardiac consult 3. CAD: recent cardiac W/U with occluded stents (placed 2 yrs ago). planned CABG after bilat CEA. 4. PVD: R CEA on 07/23 at [facility] with 70% blockage 5. CKD: baseline unk, but family aware. monitor closely with lasix rx 6. Hyperkalemia: reversed with lasix. now low. cautious repletion. renal consult 7. DM2: on meal-dose insulin at home. start ISS q6h 8. Leukocytosis: reactive. 9. Anemia: suspect chronic dz, incl heart and kidney disease Code Status; Full Code. Met with daughter Jocelyn. Coby and Aleisha not here. Plan family meeting as soon as family members reached. Family Meeting scheduled for 10am Thursday. IVANIA PIZARRO Jul 24, 2017 13:23
--- NOTE | 2017-07-24 15:18 | RAD ---
INDICATION: PICC line placement COMPARISON: Earlier same day FINDINGS: Single view of chest obtained. Endotracheal tube above the prabha. Enteric tube seen coursing towards diaphragm with distal aspect off of the field of view. Right-sided PICC line seen coursing into the expected location of SVC but appears to course medially and may be within the brachiocephalic. Prominent aortic contour. Haziness at bilateral lungs. IMPRESSION: PICC line placement which appears to course into the SVC but then extends to the left and may be located within the brachiocephalic. Haziness within the bilateral lungs could be secondary to multifocal infiltrate or edema. Appears increased from 1 day prior. Tortuous appearance of the aortic contour which appears enlarged. This appearance of enlargement could be secondary to technical factors from portable technique but attention on follow-up.
--- NOTE | 2017-07-24 15:37 | PDOC ---
PULMONARY PROGRESS NOTES Vitals Vital Signs Date Time Temp Pulse Resp B/P (MAP) Pulse Ox O2 Delivery O2 Flow Rate FiO2 07/24/17 14:00 81 18 151/67 (95) 100 Ventilator 07/24/17 12:00 100.2 100.2 07/23/17 20:45 15.0 Labs Laboratory Tests Test 07/23/17 18:47 07/23/17 18:52 07/23/17 18:53 07/23/17 19:20 White Blood Count 14.0 x10^3/uL (4.0-11.0) Red Blood Count 3.38 x10^6/uL (3.50-5.40) Hemoglobin 10.7 g/dL (12.0-15.5) Hematocrit 32.9 % (36.0-47.0) Mean Corpuscular Volume 97 fL (79-100) Mean Corpuscular Hemoglobin 32 pg (25-35) Mean Corpuscular Hemoglobin Concent 33 g/dL (31-37) Red Cell Distribution Width 15.4 % (11.5-14.5) Platelet Count 184 x10^3/uL (140-400) Neutrophils (%) (Auto) 71 % (31-73) Lymphocytes (%) (Auto) 21 % (24-48) Monocytes (%) (Auto) 6 % (0-9) Eosinophils (%) (Auto) 2 % (0-3) Basophils (%) (Auto) 0 % (0-3) Neutrophils # (Auto) 9.9 x10^3uL (1.8-7.7) Lymphocytes # (Auto) 2.9 x10^3/uL (1.0-4.8) Monocytes # (Auto) 0.9 x10^3/uL (0.0-1.1) Eosinophils # (Auto) 0.2 x10^3/uL (0.0-0.7) Basophils # (Auto) 0.0 x10^3/uL (0.0-0.2) Prothrombin Time 13.7 SEC (11.7-14.0) Prothromb Time International Ratio 1.1 (0.8-1.1) Activated Partial Thromboplast Time 28 SEC (24-38) Lactic Acid Level 5.2 mmol/L (0.4-2.0) Bedside Troponin I 0.69 ng/ml (<0.08) Bedside Hemoglobin 11.2 g/dL (12-15) Bedside Hematocrit 33 % (36-40) Bedside Sodium 135 mmol/L (135-145) Bedside Potassium 5.4 mmol/L (3.5-5.0) Bedside Chloride 106 mmol/L (98-110) Bedside Total CO2 18 mmol/L (23-32) Anion Gap 17 mmol/L (6-14) Bedside Blood Urea Nitrogen 44 mg/dL (8-26) Bedside Creatinine 2.6 mg/dL (0.5-1.4) Glucose Level 214 mg/dL (70-99) Bedside Ionized Calcium (Warner) 1.04 mmol/L (1.13-1.32) O2 Saturation 94 % (92-99) Arterial Blood pH 7.23 (7.35-7.45) Arterial Blood pCO2 at Patient Temp 44 mmHg (35-46) Arterial Blood pO2 at Patient Temp 84 mmHg (65-108) Arterial Blood HCO3 18 mmol/L (21-28) Arterial Blood Base Excess -9 mmol/L (-3-3) FiO2 100 Test 07/23/17 21:45 07/24/17 00:20 07/24/17 05:00 07/24/17 05:30 O2 Saturation 91 % (92-99) Arterial Blood pH 7.33 (7.35-7.45) Arterial Blood pCO2 at Patient Temp 34 mmHg (35-46) Arterial Blood pO2 at Patient Temp 65 mmHg (65-108) Arterial Blood HCO3 18 mmol/L (21-28) Arterial Blood Base Excess -7 mmol/L (-3-3) FiO2 60 Lactic Acid Level 1.5 mmol/L (0.4-2.0) Troponin I Quantitative 10.629 ng/mL (0.000-0.055) White Blood Count 11.4 x10^3/uL (4.0-11.0) Red Blood Count 2.84 x10^6/uL (3.50-5.40) Hemoglobin 8.9 g/dL (12.0-15.5) Hematocrit 27.6 % (36.0-47.0) Mean Corpuscular Volume 97 fL (79-100) Mean Corpuscular Hemoglobin 31 pg (25-35) Mean Corpuscular Hemoglobin Concent 32 g/dL (31-37) Red Cell Distribution Width 15.3 % (11.5-14.5) Platelet Count 113 x10^3/uL (140-400) Sodium Level 137 mmol/L (136-145) Potassium Level 3.4 mmol/L (3.5-5.1) Chloride Level 104 mmol/L (98-107) Carbon Dioxide Level 18 mmol/L (21-32) Anion Gap 15 (6-14) Blood Urea Nitrogen 29 mg/dL (7-20) Creatinine 2.3 mg/dL (0.6-1.0) Estimated GFR (Cockcroft-Gault) 20.4 Glucose Level 119 mg/dL (70-99) Calcium Level 7.6 mg/dL (8.5-10.1) Magnesium Level 1.7 mg/dL (1.8-2.4) Triglycerides Level 133 mg/dL (0-150) Cholesterol Level 100 mg/dL (0-200) LDL Cholesterol, Calculated 54 mg/dL (0-100) VLDL Cholesterol, Calculated 27 mg/dL (0-40) Non-HDL Cholesterol Calculated 81 mg/dL (0-129) HDL Cholesterol 19 mg/dL (40-60) Cholesterol/HDL Ratio 5.3 Test 07/24/17 07:45 07/24/17 12:09 O2 Saturation 98 % (92-99) Arterial Blood pH 7.45 (7.35-7.45) Arterial Blood pCO2 at Patient Temp 25 mmHg (35-46) Arterial Blood pO2 at Patient Temp 129 mmHg (65-108) Arterial Blood HCO3 17 mmol/L (21-28) Arterial Blood Base Excess -6 mmol/L (-3-3) FiO2 60 Glucose (Fingerstick) 113 mg/dL (70-99) Laboratory Tests Test 07/23/17 18:47 07/23/17 18:52 07/23/17 18:53 07/23/17 19:20 White Blood Count 14.0 x10^3/uL (4.0-11.0) Red Blood Count 3.38 x10^6/uL (3.50-5.40) Hemoglobin 10.7 g/dL (12.0-15.5) Hematocrit 32.9 % (36.0-47.0) Mean Corpuscular Volume 97 fL (79-100) Mean Corpuscular Hemoglobin 32 pg (25-35) Mean Corpuscular Hemoglobin Concent 33 g/dL (31-37) Red Cell Distribution Width 15.4 % (11.5-14.5) Platelet Count 184 x10^3/uL (140-400) Neutrophils (%) (Auto) 71 % (31-73) Lymphocytes (%) (Auto) 21 % (24-48) Monocytes (%) (Auto) 6 % (0-9) Eosinophils (%) (Auto) 2 % (0-3) Basophils (%) (Auto) 0 % (0-3) Neutrophils # (Auto) 9.9 x10^3uL (1.8-7.7) Lymphocytes # (Auto) 2.9 x10^3/uL (1.0-4.8) Monocytes # (Auto) 0.9 x10^3/uL (0.0-1.1) Eosinophils # (Auto) 0.2 x10^3/uL (0.0-0.7) Basophils # (Auto) 0.0 x10^3/uL (0.0-0.2) Prothrombin Time 13.7 SEC (11.7-14.0) Prothromb Time International Ratio 1.1 (0.8-1.1) Activated Partial Thromboplast Time 28 SEC (24-38) Lactic Acid Level 5.2 mmol/L (0.4-2.0) Bedside Troponin I 0.69 ng/ml (<0.08) Bedside Hemoglobin 11.2 g/dL (12-15) Bedside Hematocrit 33 % (36-40) Bedside Sodium 135 mmol/L (135-145) Bedside Potassium 5.4 mmol/L (3.5-5.0) Bedside Chloride 106 mmol/L (98-110) Bedside Total CO2 18 mmol/L (23-32) Anion Gap 17 mmol/L (6-14) Bedside Blood Urea Nitrogen 44 mg/dL (8-26) Bedside Creatinine 2.6 mg/dL (0.5-1.4) Glucose Level 214 mg/dL (70-99) Bedside Ionized Calcium (Warner) 1.04 mmol/L (1.13-1.32) O2 Saturation 94 % (92-99) Arterial Blood pH 7.23 (7.35-7.45) Arterial Blood pCO2 at Patient Temp 44 mmHg (35-46) Arterial Blood pO2 at Patient Temp 84 mmHg (65-108) Arterial Blood HCO3 18 mmol/L (21-28) Arterial Blood Base Excess -9 mmol/L (-3-3) FiO2 100 Test 07/23/17 21:45 07/24/17 00:20 07/24/17 05:00 07/24/17 05:30 O2 Saturation 91 % (92-99) Arterial Blood pH 7.33 (7.35-7.45) Arterial Blood pCO2 at Patient Temp 34 mmHg (35-46) Arterial Blood pO2 at Patient Temp 65 mmHg (65-108) Arterial Blood HCO3 18 mmol/L (21-28) Arterial Blood Base Excess -7 mmol/L (-3-3) FiO2 60 Lactic Acid Level 1.5 mmol/L (0.4-2.0) Troponin I Quantitative 10.629 ng/mL (0.000-0.055) White Blood Count 11.4 x10^3/uL (4.0-11.0) Red Blood Count 2.84 x10^6/uL (3.50-5.40) Hemoglobin 8.9 g/dL (12.0-15.5) Hematocrit 27.6 % (36.0-47.0) Mean Corpuscular Volume 97 fL (79-100) Mean Corpuscular Hemoglobin 31 pg (25-35) Mean Corpuscular Hemoglobin Concent 32 g/dL (31-37) Red Cell Distribution Width 15.3 % (11.5-14.5) Platelet Count 113 x10^3/uL (140-400) Sodium Level 137 mmol/L (136-145) Potassium Level 3.4 mmol/L (3.5-5.1) Chloride Level 104 mmol/L (98-107) Carbon Dioxide Level 18 mmol/L (21-32) Anion Gap 15 (6-14) Blood Urea Nitrogen 29 mg/dL (7-20) Creatinine 2.3 mg/dL (0.6-1.0) Estimated GFR (Cockcroft-Gault) 20.4 Glucose Level 119 mg/dL (70-99) Calcium Level 7.6 mg/dL (8.5-10.1) Magnesium Level 1.7 mg/dL (1.8-2.4) Triglycerides Level 133 mg/dL (0-150) Cholesterol Level 100 mg/dL (0-200) LDL Cholesterol, Calculated 54 mg/dL (0-100) VLDL Cholesterol, Calculated 27 mg/dL (0-40) Non-HDL Cholesterol Calculated 81 mg/dL (0-129) HDL Cholesterol 19 mg/dL (40-60) Cholesterol/HDL Ratio 5.3 Test 07/24/17 07:45 07/24/17 12:09 O2 Saturation 98 % (92-99) Arterial Blood pH 7.45 (7.35-7.45) Arterial Blood pCO2 at Patient Temp 25 mmHg (35-46) Arterial Blood pO2 at Patient Temp 129 mmHg (65-108) Arterial Blood HCO3 17 mmol/L (21-28) Arterial Blood Base Excess -6 mmol/L (-3-3) FiO2 60 Glucose (Fingerstick) 113 mg/dL (70-99) Medications Active Scripts Medications Dose Route/Sig Max Daily Dose Days Date Category Pravastatin Sodium 20 Mg Tablet 20 Mg PO DAILY 07/24/17 Reported Pantoprazole Sodium 40 Mg Tablet.dr 40 Mg PO DAILY 07/24/17 Reported [place] 3 Fish Oil Softgel ([place]-3 Fatty Acids/Fish Oil) 1 Each Capsule.dr 1,000 Mg PO DAILY 07/24/17 Reported Toprol Xl (Metoprolol Succinate) 50 Mg Tab.er.24h 1 Tab PO DAILY 07/24/17 Reported Isosorbide Mononitrate Er (Isosorbide Mononitrate) 60 Mg Tab.er.24h 1 Tab PO DAILY 07/24/17 Reported Humalog (Insulin Lispro) 100 Unit/1 Ml Cartridge 5-8 Unit SQ TIDBFRMEAL 07/24/17 Reported Vitamin D3 (Cholecalciferol (Vitamin D3)) 1,000 Unit Tablet 1 Tab PO DAILY 07/24/17 Reported Aspir 81 (Aspirin) 81 Mg Tablet.dr 1 Tab PO DAILY 07/24/17 Reported Ascorbic Acid 250 Mg Tablet 250 Mg PO 07/24/17 Reported Hydrocodone-Apap 5-325 (Hydrocodone Bit/Acetaminophen) 1 Each Tablet 2 Tab PO PRN Q4HRS PRN 07/24/17 Reported Hydrocodone-Apap 5-325 (Hydrocodone Bit/Acetaminophen) 1 Each Tablet 1 Tab PO PRN Q4HRS PRN 07/24/17 Reported Amlodipine Besylate 5 Mg Tablet 5 Mg PO DAILY 07/24/17 Reported Impression . FULL CONSULT DICTATED ACUTE RESP FAILURE MULTIFACTORIAL SUSPECT MOSTLY ACUTE PULMONARY EDEMA WILL CONTINUE TO TREAT FOR SEPSIS FOR NOW THANKS ZAFAR LANIER MD Jul 24, 2017 15:37
--- NOTE | 2017-07-24 16:25 | RAD ---
Portable chest, 07/24/2017, 4 9:00 PM: History: Check PICC placement Comparison is made to the study of earlier the same day at 2:57 PM. The patient positioning is kyphotic. A right PICC extends into the superior vena cava. Its tip is directed medially suggesting it may be extending into the the left innominate vein near its junction with the superior vena cava, or the azygos vein. Withdrawal of the tube approximately 2 cm should bring its tip back into the SVC. An NG tube extends into the stomach. The ET tube tip lies 2 to 3 cm above the prabha. The heart size is unchanged. There are ongoing hazy bibasilar opacities compatible with residual pleural fluid and/or pleural fluid layering posteriorly. The cardiopulmonary findings are unchanged since earlier in the day. IMPRESSION: Continued suboptimal position of the right PICC as described above.
[2017-07-24] MEDS: HEPARIN for IV BOLUS 10,000 UNIT/10 ML VIAL. IV PRN (18:40)
--- NOTE | 2017-07-24 19:01 | RAD ---
AP portable chest radiograph 07/24/2017 Clinical History: PICC line placement. An AP erect portable digital radiograph of the chest was obtained. Comparison study is dated 07/23/2017. The ET tube and NG tube are unchanged in position. A right arm PICC has been placed. The tip of this catheter extends to overlie the superior vena cava. The cardiac silhouette is mildly enlarged. The thoracic aorta is tortuous. Atherosclerotic calcification of the thoracic aorta is seen. Improving perihilar infiltrates are seen involving both lungs. No pneumothorax or large pleural effusion is noted. The osseous structures are unchanged. Impression: Interval placement of a right arm PICC. The tip of this catheter extends to overlie the superior vena cava. Electronically signed by: Kin Boateng MD (07/24/2017 6:57 PM) [facility]
[2017-07-24] MEDS ORDERED: CEFEPIME HCL IV Push 1 GM VIAL. IVP SCH (20:00)
[2017-07-24] MEDS ORDERED: CEFEPIME HCL 1 GM in IV DEXTROSE 5% 50 ML IV SCH (20:00)
[2017-07-24] MEDS: PROPOFOL 100 ML IV PRN (20:18)
[2017-07-24] MEDS ORDERED: ATORVASTATIN CALCIUM 10 MG TABLET. PO SCH (21:00)
[2017-07-24] MEDS: ATORVASTATIN CALCIUM 40 MG TABLET. PO SCH (22:03)
--- NOTE | 2017-07-24 22:38 | EKG ---
[facility] [address] [place] [address] Test Date: 2017-07-24 Test Time: 22:42:23 Pat Name: CRISTIAN LUDWIG Department: Room: 109 1 Gender: F Public Safety Dispatcher: CHRISTINA : [id number] Requested By: NASH PADRON Order Number: [id number] Reading MD: Rica Dan Measurements Intervals Colman Rate: 86 P: 44 OK: 150 QRS: 34 QRSD: 72 T: 28 QT: 406 QTc: 489 Interpretive Statements SINUS RHYTHM NON SOECIFIC ST T WAVE CHANGES Electronically Signed On 07-26-2017 16:36:00 CDT by Rica Dan
--- NOTE | 2017-07-24 23:12 | CONS ---
DATE OF CONSULTATION: 07/24/2017 ATTENDING PHYSICIAN: Galen Castro DO CONSULTING PHYSICIAN: Zafar Lanier MD REASON FOR CONSULTATION: The patient is seen in pulmonary consultation at the request of Dr. Castro for acute respiratory failure requiring mechanical ventilation. HISTORY OF PRESENT ILLNESS: The patient is an 81-year-old female that presented with acute respiratory failure. She was apparently discharged from [facility] earlier today postop right carotid endarterectomy. She arrived at home and was sleepy. She also had some subjective fever. The patient was given some Tylenol. She became increasingly more short of breath. The EMS was summoned. The patient arrived with saturation of 70% utilizing accessory muscles in the Emergency Room. Her mental status was decreased. She was intubated. She is currently in the intensive care unit. She is on mechanical ventilation. I reviewed her chest x-ray, which I revealed bilateral infiltrates compatible with CHF with effusion on the left, cardiomegaly. The patient had an echocardiogram revealing an ejection fraction of 55%, pulmonary artery pressures of 44. She also has a history of coronary artery disease. Apparently, she was scheduled to undergo coronary artery bypass grafting in the near future. PAST MEDICAL HISTORY: 1. Remarkable for coronary artery disease requiring coronary artery bypass surgery in the near future. 2. Congestive heart failure. 3. Diabetes. 4. Hypertension. 5. Recent carotid endarterectomy. 6. Hyperlipidemia. PAST SURGICAL HISTORY: As above. ALLERGIES: TO IBUPROFEN AND MORPHINE. SOCIAL HISTORY: There is no history of tobacco or alcohol. REVIEW OF SYSTEMS: Unobtainable secondary to the patient's condition. CURRENT MEDICATIONS: List was reviewed. The patient has received broad spectrum antibiotics for the possibility of sepsis, IV fluids. She is currently receiving heparin. PHYSICAL EXAMINATION: GENERAL: The patient was sedated on mechanical ventilation. VITAL SIGNS: O2 saturation greater than 92%. T-max yesterday was 101.1. HEENT: Eyes, the sclerae were nonicteric. NECK: Jugular venous distention could not be assessed, evidence of recent endarterectomy. CHEST: Full expansion. LUNGS: Anteriorly were clear. CARDIOVASCULAR: Regular rate and rhythm with S1, S2, no S3. ABDOMEN: Soft, nontender, nondistended. EXTREMITIES: No clubbing, cyanosis or edema. NEUROLOGIC: The patient was sedated. LABORATORY DATA: Reviewed. Chest x-ray as indicated above, bilateral pulmonary infiltrate. White count was elevated. Arterial blood gas this morning, pH of 7.45, PaCO2 of 25, pO2 of 129, bicarbonate is 17. INR was 1.1. Electrolytes within range. BUN was elevated. Creatinine was elevated. Lactic acid level initially was 5.2, repeat was 1.5. Troponin level was markedly elevated at 10.6. IMPRESSION: 1. Acute respiratory failure, multifactorial. 2. Acute diastolic, systolic heart failure. 3. Non-ST segment elevation myocardial infarction. 4. Recent right carotid endarterectomy performed on July 22. 5. Possible sepsis. 6. Fever. 7. Leukocytosis. 8. Coronary artery disease requiring coronary artery bypass grafting. 9. Anemia. 10. Chronic kidney disease. PLAN: 1. Continue broad coverage antibiotics. 2. Consult Cardiology, already performed. 3. Consult Nephrology already performed. 4. Titrate FiO2. 5. Continue heparin. 6. A.m. labs and chest x-ray. I do appreciate the privilege in sharing in the patient's care. Total cumulative critical care time of 45 minutes. ZAFAR LANIER MD DR: CECE/pancho JOB#: [id number] / [id number]
[2017-07-25] VITALS (24 sets, daily range): BP systolic 112–149; BP diastolic 47–69
[2017-07-25] MEDS ORDERED: ACETAMINOPHEN 650 MG/20.3 ML SOLUTION. PEG PRN (01:15)
[2017-07-25] MEDS: PROPOFOL 100 ML IV PRN (04:20)
[2017-07-25] MEDS: INSULIN ASPART 300 UNITS/3 ML INSULN.PEN SQ SCH ×4 (06:23→18:00)
[2017-07-25 06:30] LABS: HEMATOCRIT 25.3 % (36.0-47.0); HEMOGLOBIN 8.5 g/dL (12.0-15.5); RED BLOOD COUNT 2.65 x10^6/uL (3.50-5.40); RED CELL DISTRIBUTION WIDTH 15.4 % (11.5-14.5)
[2017-07-25 07:05] LABS: CALCIUM 7.9 mg/dL (8.5-10.1); CREATININE 2.1 mg/dL (0.6-1.0); GFR 22.7; MAGNESIUM 2.1 mg/dL (1.8-2.4); PHOSPHORUS 3.4 mg/dL (2.6-4.7); POTASSIUM 3.2 mmol/L (3.5-5.1)
[2017-07-25] MEDS ORDERED: PANTOPRAZOLE 40 MG TABLET.DR. PO SCH (07:30)
[2017-07-25] MEDS ORDERED: ISOSORBIDE MONONITRATE ER 30 MG TAB.ER.24H PO SCH (09:00)
[2017-07-25] MEDS ORDERED: METOPROLOL SUCC 24HR ER 50 MG TAB.ER.24H. PO SCH (09:00)
[2017-07-25] MEDS ORDERED: ASPIRIN ENTERIC COATED 81 MG TABLET.DR. PO SCH (09:00)
[2017-07-25] MEDS ORDERED: NITROGLYCERIN PREMIX 250 ML IV PRN (09:30)
[2017-07-25 09:38] LABS: HCO3 ABG 17 mmol/L (21-28); PCO2 ABG 30 mmHg (35-46); PH ABG 7.38 (7.35-7.45); PO2 ABG 89 mmHg (65-108); SAT O2 ABG 96 % (92-99)
[2017-07-25 09:40] LABS: FIO2 ABG 40
--- NOTE | 2017-07-25 09:41 | PDOC ---
CARDIOLOGY PROGRESS NOTE SUBJECTIVE: No chest pain Intubation is bothering her. OBJECTIVE: Vital SIgns: Vital Signs Date Time Temp Pulse Resp B/P (MAP) Pulse Ox O2 Delivery O2 Flow Rate FiO2 07/25/17 09:00 85 26 147/59 (88) 99 Ventilator 07/25/17 08:00 98.7 98.7 I & O Even fluid balance Objective: Gen: Awake. Mild distress from tube in place rrr no m/r/g pulm ctab abd soft nt/nd no edema. CURRENT MEDICATIONS: Continue asa, atorvastatin, hep gtt and b-deep DIAGNOSTIC TESTING: EKG with SR and improving diffuse ST segment depressions Tele unremarkable Trop downtrending to 6. ASSESSMENT: 1. 3V CAD - awaiting CABG 2. PVD s/p R CEA 3. HTN 4. Acute flash pulm edema 5. NSTEMI Problems: PLAN: 1. Plan for extubation today, weaning trial ongoing 2. Her trop is downtrending, she is not having active chest pain and her EKG is improving, in light of this would favor continued conservative mgmt with close monitor of BP and fluid levels 3. She would be a poor candidate to take for CABG now given her acute insults. 4. Discussed with family and they also would like conservative mgmt. 5. Based on OSH cath report, her lesions are not easily amenable to PCI, therefore CABG would be the optimal plan. 6. Low dose NTG gtt to keep SBP <120 to avoid flash pulm edema. Will follow along. Thanks for consultation. NASH PADRON MD Jul 25, 2017 09:41
[2017-07-25] MEDS: ANTI-COAG MONITOR BY PHARMACY. MC PRN (10:01)
--- NOTE | 2017-07-25 10:10 | PDOC ---
PROGRESS NOTES Chief Complaint Chief Complaint Acute hypoxic respir failure ASSESSMENT AND PLAN: 1. Acute respir failure sec to flash pulm edema 2. NSTEMI: CABG ideal but poor surgical candidate 3. CAD: with occluded stents (placed 2 yrs ago). 4. Recent Carotid endarcterectomy, L with 70% blockage ([facility]) 5. CKD: baseline 6. Hyperkalemia: reversed 7. DM2: controlled 8. Leukocytosis: reactive. 9. Anemia: suspect chronic dz, History of Present Illness History of Present Illness intubated,but awake VS good ABG looks very good, she follows commands Very good and clear UO CArds plans noted - CABG ideal but poor risk candidate, PCI not attractive too given the location of the lesions SO consensus is medical mx for now PLAn: Possible extubation today If that happens APPLIQUE SEWER, PT, OT IV meds till passes APPLIQUE SEWER - And I have changed meds as much as I can ASa per rectum until passes APPLIQUE SEWER dw whole family Vitals Vitals Vital Signs Date Time Temp Pulse Resp B/P (MAP) Pulse Ox O2 Delivery O2 Flow Rate FiO2 07/25/17 09:19 99 Ventilator 07/25/17 09:00 85 26 147/59 (88) 07/25/17 08:00 98.7 98.7 Physical Exam General: Alert, Cooperative, Other (sedated) Heart: Regular rate, Other (tachy) Lungs: Clear Abdomen: Soft Extremities: No edema Skin: No rashes Labs LABS Laboratory Tests Test 07/24/17 12:09 07/24/17 17:30 07/24/17 18:43 07/24/17 22:30 Glucose (Fingerstick) 113 mg/dL (70-99) 119 mg/dL (70-99) Heparin Anti-Xa Act, Unfractionated < 0.10 IU/mL (0.30-0.70) Troponin I Quantitative 6.385 ng/mL (0.000-0.055) Test 07/25/17 00:20 07/25/17 00:22 07/25/17 06:14 07/25/17 06:15 Heparin Anti-Xa Act, Unfractionated 0.21 IU/mL (0.30-0.70) Glucose (Fingerstick) 124 mg/dL (70-99) 170 mg/dL (70-99) White Blood Count 9.0 x10^3/uL (4.0-11.0) Red Blood Count 2.65 x10^6/uL (3.50-5.40) Hemoglobin 8.5 g/dL (12.0-15.5) Hematocrit 25.3 % (36.0-47.0) Mean Corpuscular Volume 96 fL (79-100) Mean Corpuscular Hemoglobin 32 pg (25-35) Mean Corpuscular Hemoglobin Concent 34 g/dL (31-37) Red Cell Distribution Width 15.4 % (11.5-14.5) Platelet Count 133 x10^3/uL (140-400) Sodium Level 139 mmol/L (136-145) Potassium Level 3.2 mmol/L (3.5-5.1) Chloride Level 107 mmol/L (98-107) Carbon Dioxide Level 19 mmol/L (21-32) Anion Gap 13 (6-14) Blood Urea Nitrogen 23 mg/dL (7-20) Creatinine 2.1 mg/dL (0.6-1.0) Estimated GFR (Cockcroft-Gault) 22.7 Glucose Level 178 mg/dL (70-99) Calcium Level 7.9 mg/dL (8.5-10.1) Phosphorus Level 3.4 mg/dL (2.6-4.7) Magnesium Level 2.1 mg/dL (1.8-2.4) Test 07/25/17 08:15 07/25/17 09:20 Heparin Anti-Xa Act, Unfractionated > 1.10 IU/mL (0.30-0.70) O2 Saturation 96 % (92-99) Arterial Blood pH 7.38 (7.35-7.45) Arterial Blood pCO2 at Patient Temp 30 mmHg (35-46) Arterial Blood pO2 at Patient Temp 89 mmHg (65-108) Arterial Blood HCO3 17 mmol/L (21-28) Arterial Blood Base Excess -7 mmol/L (-3-3) FiO2 40 Review of Systems Review of Systems intubated Assessment and Plan Assessmemt and Plan Problems Medical Problems: (1) Acute renal failure Status: Acute (2) HCAP (healthcare-associated pneumonia) Status: Acute (3) NSTEMI (non-ST elevated myocardial infarction) Status: Acute Problems: Comment Review of Relevant I have reviewed the following items ion (where applicable) has been applied. Labs Laboratory Tests Test 07/23/17 18:47 07/23/17 18:52 07/23/17 18:53 07/23/17 19:20 White Blood Count 14.0 x10^3/uL (4.0-11.0) Red Blood Count 3.38 x10^6/uL (3.50-5.40) Hemoglobin 10.7 g/dL (12.0-15.5) Hematocrit 32.9 % (36.0-47.0) Mean Corpuscular Volume 97 fL (79-100) Mean Corpuscular Hemoglobin 32 pg (25-35) Mean Corpuscular Hemoglobin Concent 33 g/dL (31-37) Red Cell Distribution Width 15.4 % (11.5-14.5) Platelet Count 184 x10^3/uL (140-400) Neutrophils (%) (Auto) 71 % (31-73) Lymphocytes (%) (Auto) 21 % (24-48) Monocytes (%) (Auto) 6 % (0-9) Eosinophils (%) (Auto) 2 % (0-3) Basophils (%) (Auto) 0 % (0-3) Neutrophils # (Auto) 9.9 x10^3uL (1.8-7.7) Lymphocytes # (Auto) 2.9 x10^3/uL (1.0-4.8) Monocytes # (Auto) 0.9 x10^3/uL (0.0-1.1) Eosinophils # (Auto) 0.2 x10^3/uL (0.0-0.7) Basophils # (Auto) 0.0 x10^3/uL (0.0-0.2) Prothrombin Time 13.7 SEC (11.7-14.0) Prothromb Time International Ratio 1.1 (0.8-1.1) Activated Partial Thromboplast Time 28 SEC (24-38) Lactic Acid Level 5.2 mmol/L (0.4-2.0) Bedside Troponin I 0.69 ng/ml (<0.08) Bedside Hemoglobin 11.2 g/dL (12-15) Bedside Hematocrit 33 % (36-40) Bedside Sodium 135 mmol/L (135-145) Bedside Potassium 5.4 mmol/L (3.5-5.0) Bedside Chloride 106 mmol/L (98-110) Bedside Total CO2 18 mmol/L (23-32) Anion Gap 17 mmol/L (6-14) Bedside Blood Urea Nitrogen 44 mg/dL (8-26) Bedside Creatinine 2.6 mg/dL (0.5-1.4) Glucose Level 214 mg/dL (70-99) Bedside Ionized Calcium (Warner) 1.04 mmol/L (1.13-1.32) O2 Saturation 94 % (92-99) Arterial Blood pH 7.23 (7.35-7.45) Arterial Blood pCO2 at Patient Temp 44 mmHg (35-46) Arterial Blood pO2 at Patient Temp 84 mmHg (65-108) Arterial Blood HCO3 18 mmol/L (21-28) Arterial Blood Base Excess -9 mmol/L (-3-3) FiO2 100 Test 07/23/17 21:45 07/24/17 00:00 07/24/17 00:20 07/24/17 05:00 O2 Saturation 91 % (92-99) Arterial Blood pH 7.33 (7.35-7.45) Arterial Blood pCO2 at Patient Temp 34 mmHg (35-46) Arterial Blood pO2 at Patient Temp 65 mmHg (65-108) Arterial Blood HCO3 18 mmol/L (21-28) Arterial Blood Base Excess -7 mmol/L (-3-3) FiO2 60 Nasal Screen MRSA (PCR) Negative (Negative) Lactic Acid Level 1.5 mmol/L (0.4-2.0) Troponin I Quantitative 10.629 ng/mL (0.000-0.055) Test 07/24/17 05:30 07/24/17 07:45 07/24/17 12:09 07/24/17 17:30 White Blood Count 11.4 x10^3/uL (4.0-11.0) Red Blood Count 2.84 x10^6/uL (3.50-5.40) Hemoglobin 8.9 g/dL (12.0-15.5) Hematocrit 27.6 % (36.0-47.0) Mean Corpuscular Volume 97 fL (79-100) Mean Corpuscular Hemoglobin 31 pg (25-35) Mean Corpuscular Hemoglobin Concent 32 g/dL (31-37) Red Cell Distribution Width 15.3 % (11.5-14.5) Platelet Count 113 x10^3/uL (140-400) Sodium Level 137 mmol/L (136-145) Potassium Level 3.4 mmol/L (3.5-5.1) Chloride Level 104 mmol/L (98-107) Carbon Dioxide Level 18 mmol/L (21-32) Anion Gap 15 (6-14) Blood Urea Nitrogen 29 mg/dL (7-20) Creatinine 2.3 mg/dL (0.6-1.0) Estimated GFR (Cockcroft-Gault) 20.4 Glucose Level 119 mg/dL (70-99) Calcium Level 7.6 mg/dL (8.5-10.1) Magnesium Level 1.7 mg/dL (1.8-2.4) Triglycerides Level 133 mg/dL (0-150) Cholesterol Level 100 mg/dL (0-200) LDL Cholesterol, Calculated 54 mg/dL (0-100) VLDL Cholesterol, Calculated 27 mg/dL (0-40) Non-HDL Cholesterol Calculated 81 mg/dL (0-129) HDL Cholesterol 19 mg/dL (40-60) Cholesterol/HDL Ratio 5.3 O2 Saturation 98 % (92-99) Arterial Blood pH 7.45 (7.35-7.45) Arterial Blood pCO2 at Patient Temp 25 mmHg (35-46) Arterial Blood pO2 at Patient Temp 129 mmHg (65-108) Arterial Blood HCO3 17 mmol/L (21-28) Arterial Blood Base Excess -6 mmol/L (-3-3) FiO2 60 Glucose (Fingerstick) 113 mg/dL (70-99) Heparin Anti-Xa Act, Unfractionated < 0.10 IU/mL (0.30-0.70) Test 07/24/17 18:43 07/24/17 22:30 07/25/17 00:20 07/25/17 00:22 Glucose (Fingerstick) 119 mg/dL (70-99) 124 mg/dL (70-99) Troponin I Quantitative 6.385 ng/mL (0.000-0.055) Heparin Anti-Xa Act, Unfractionated 0.21 IU/mL (0.30-0.70) Test 07/25/17 06:14 07/25/17 06:15 07/25/17 08:15 07/25/17 09:20 Glucose (Fingerstick) 170 mg/dL (70-99) White Blood Count 9.0 x10^3/uL (4.0-11.0) Red Blood Count 2.65 x10^6/uL (3.50-5.40) Hemoglobin 8.5 g/dL (12.0-15.5) Hematocrit 25.3 % (36.0-47.0) Mean Corpuscular Volume 96 fL (79-100) Mean Corpuscular Hemoglobin 32 pg (25-35) Mean Corpuscular Hemoglobin Concent 34 g/dL (31-37) Red Cell Distribution Width 15.4 % (11.5-14.5) Platelet Count 133 x10^3/uL (140-400) Sodium Level 139 mmol/L (136-145) Potassium Level 3.2 mmol/L (3.5-5.1) Chloride Level 107 mmol/L (98-107) Carbon Dioxide Level 19 mmol/L (21-32) Anion Gap 13 (6-14) Blood Urea Nitrogen 23 mg/dL (7-20) Creatinine 2.1 mg/dL (0.6-1.0) Estimated GFR (Cockcroft-Gault) 22.7 Glucose Level 178 mg/dL (70-99) Calcium Level 7.9 mg/dL (8.5-10.1) Phosphorus Level 3.4 mg/dL (2.6-4.7) Magnesium Level 2.1 mg/dL (1.8-2.4) Heparin Anti-Xa Act, Unfractionated > 1.10 IU/mL (0.30-0.70) O2 Saturation 96 % (92-99) Arterial Blood pH 7.38 (7.35-7.45) Arterial Blood pCO2 at Patient Temp 30 mmHg (35-46) Arterial Blood pO2 at Patient Temp 89 mmHg (65-108) Arterial Blood HCO3 17 mmol/L (21-28) Arterial Blood Base Excess -7 mmol/L (-3-3) FiO2 40 Laboratory Tests Test 07/24/17 12:09 07/24/17 17:30 07/24/17 18:43 07/24/17 22:30 Glucose (Fingerstick) 113 mg/dL (70-99) 119 mg/dL (70-99) Heparin Anti-Xa Act, Unfractionated < 0.10 IU/mL (0.30-0.70) Troponin I Quantitative 6.385 ng/mL (0.000-0.055) Test 07/25/17 00:20 07/25/17 00:22 07/25/17 06:14 07/25/17 06:15 Heparin Anti-Xa Act, Unfractionated 0.21 IU/mL (0.30-0.70) Glucose (Fingerstick) 124 mg/dL (70-99) 170 mg/dL (70-99) White Blood Count 9.0 x10^3/uL (4.0-11.0) Red Blood Count 2.65 x10^6/uL (3.50-5.40) Hemoglobin 8.5 g/dL (12.0-15.5) Hematocrit 25.3 % (36.0-47.0) Mean Corpuscular Volume 96 fL (79-100) Mean Corpuscular Hemoglobin 32 pg (25-35) Mean Corpuscular Hemoglobin Concent 34 g/dL (31-37) Red Cell Distribution Width 15.4 % (11.5-14.5) Platelet Count 133 x10^3/uL (140-400) Sodium Level 139 mmol/L (136-145) Potassium Level 3.2 mmol/L (3.5-5.1) Chloride Level 107 mmol/L (98-107) Carbon Dioxide Level 19 mmol/L (21-32) Anion Gap 13 (6-14) Blood Urea Nitrogen 23 mg/dL (7-20) Creatinine 2.1 mg/dL (0.6-1.0) Estimated GFR (Cockcroft-Gault) 22.7 Glucose Level 178 mg/dL (70-99) Calcium Level 7.9 mg/dL (8.5-10.1) Phosphorus Level 3.4 mg/dL (2.6-4.7) Magnesium Level 2.1 mg/dL (1.8-2.4) Test 07/25/17 08:15 07/25/17 09:20 Heparin Anti-Xa Act, Unfractionated > 1.10 IU/mL (0.30-0.70) O2 Saturation 96 % (92-99) Arterial Blood pH 7.38 (7.35-7.45) Arterial Blood pCO2 at Patient Temp 30 mmHg (35-46) Arterial Blood pO2 at Patient Temp 89 mmHg (65-108) Arterial Blood HCO3 17 mmol/L (21-28) Arterial Blood Base Excess -7 mmol/L (-3-3) FiO2 40 Microbiology 07/23/17 Blood Culture - Preliminary, Resulted NO GROWTH AFTER 1 DAY Medications Current Medications Sodium Chloride 500 ml @ 500 mls/hr 1X ONCE IV Last administered on 20:16; Start 07/23/17 at 19:15; Stop 07/23/17 at 20:14; Status DC Rocuronium [place] (Zemuron) 50 mg 1X ONCE IV Last administered on 07/23/17 19:15; Start 07/23/17 at 19:15; Stop 07/23/17 at 19:16; Status DC Propofol 50 ml @ As Directed STK-MED ONCE IV ; Start 07/23/17 at 19:12; Stop 07/23/17 at 19:13; Status DC Propofol 50 ml @ 0 mls/hr 1X ONCE IV Last administered on 07/23/17 19:30; Start 07/23/17 at 19:30; Stop 07/23/17 at 19:31; Status DC Cefepime HCl 1 gm/ Dextrose 50 ml @ 100 mls/hr Q24H IV Last administered on 20:21; Start 07/24/17 at 20:00; Stop 07/24/17 at 23:00; Status DC Vancomycin HCl 1.25 gm/Sodium Chloride 250 ml @ 166.667 mls/hr 1X ONCE IV ; Start 07/23/17 at 19:45; Stop 07/23/17 at 21:14; Status UNV Cefepime HCl 1 gm/ Dextrose 50 ml @ 100 mls/hr 1X ONCE IV Last administered on 07/23/17 20:10; Start 07/23/17 at 20:00; Stop 07/23/17 at 20:29; Status DC Aspirin (Aspirin) 300 mg 1X ONCE MO Last administered on 07/23/17 20:09; Start 07/23/17 at 20:00; Stop 07/23/17 at 20:01; Status DC Vancomycin HCl 1.75 gm/Dextrose 500 ml @ 250 mls/hr 1X ONCE IV Last administered on 07/23/17 21:12; Start 07/23/17 at 20:00; Stop 07/23/17 at 21 :59; Status DC Sodium Chloride 1,000 ml @ 150 mls/hr Q6H40M IV Last administered on 10:00; Start 07/23/17 at 20:01; Stop 07/24/17 at 15:34; Status DC Sodium Chloride 1,000 ml @ 1,000 mls/hr 1X ONCE IV Last administered on 07/23 20:30; Start 07/23/17 at 20:30; Stop 07/23/17 at 21:29; Status DC Vancomycin HCl (Vanco Per Pharmacy) 1 each PRN DAILY PRN MC SEE COMMENTS Last administered on 07/24/17 14:37; Start 07/23/17 at 21:30 Lactobacillus Rhamnosus (Culturelle) 1 cap BID PO Last administered on 22:04; Start 07/24/17 at 09:00 Sodium Chloride 500 ml @ 500 mls/hr 1X ONCE IV Last administered on 22:30; Start 07/23/17 at 22:30; Stop 07/23/17 at 23:29; Status DC Propofol 100 ml @ 0 mls/hr CONT PRN IV SEE I/O RECORD Last administered on 04:20; Start 07/23/17 at 22:15 Sodium Chloride 500 ml @ 500 mls/hr 1X ONCE IV Last administered on 01:30; Start 07/24/17 at 01:30; Stop 07/24/17 at 02:29; Status DC Etomidate (Amidate) 20 mg STK-MED ONCE IV ; Start 07/24/17 at 01:55; Stop at 01:56; Status DC Succinylcholine Chloride (Anectine) 200 mg STK-MED ONCE .ROUTE ; Start at 01:56; Stop 07/24/17 at 01:57; Status DC Vancomycin HCl 1 gm/Dextrose 250 ml @ 250 mls/hr Q48H IV ; Start 07/25/17 at 21:00 Vancomycin HCl 1 each 1X ONCE MC ; Start 07/27/17 at 20:30; Stop 07/27/17 at 20:31 Heparin Sodium (Porcine) (Heparin Sodium) 3,700 unit 1X ONCE IV Last administered on 07/24/17 07:56; Start 07/24/17 at 07:00; Stop 07/24/17 at 07 :01; Status DC Heparin Sodium/ Dextrose 500 ml @ 0 mls/hr CONT PRN IV SEE I/O RECORD Last administered on 07/24/17 07:57; Start 07/24/17 at 06:45 Heparin Sodium (Porcine) (Heparin Sodium) 1,550 unit PRN Q6HRS PRN IV FOR UFH LEVEL LESS THAN 0.2 Last administered on 07/24/17 18:40; Start 07/24/17 at 06 :45 Info (Anti-Coagulation Monitoring By Pharmacy) 1 each PRN DAILY PRN MC SEE COMMENTS Last administered on 07/25/17 10:01; Start 07/24/17 at 07:00 Potassium Chloride 100 ml @ 100 mls/hr Q1H IV Last administered on 07/24/17 12:57; Start 07/24/17 at 11:00; Stop 07/24/17 at 12:59; Status DC Insulin Aspart (NovoLOG) 0-5 UNITS TIDWMEALS SQ ; Start 07/24/17 at 12:00; Stop 07/24/17 at 12:00; Status DC Dextrose (Dextrose 50%-Water Syringe) 12.5 gm PRN Q15MIN PRN IV SEE COMMENTS; Start 07/24/17 at 10:45 Insulin Aspart (NovoLOG) 0-5 UNITS Q6HRS SQ ; Start 07/24/17 at 12:00; Stop at 12:00; Status DC Amlodipine Besylate (Norvasc) 5 mg DAILY PO ; Start 07/25/17 at 09:00 Aspirin (Ecotrin) 81 mg DAILY PO ; Start 07/25/17 at 09:00 Vitamin D (Vitamin D3) 1,000 unit DAILY PO ; Start 07/25/17 at 09:00 Acetaminophen/ Hydrocodone Bitart (Lortab 5/325) 1 tab PRN Q4HRS PRN PO PAIN; Start 07/24/17 at 11:30 Acetaminophen/ Hydrocodone Bitart (Lortab 5/325) 2 tab PRN Q4HRS PRN PO PAIN; Start 07/24/17 at 11:30 Nitroglycerin (Nitrostat) 0.4 mg PRN Q5MIN PRN SL CHEST PAIN; Start 07/24/17 at 11:30 Pantoprazole Sodium (Protonix) 40 mg DAILYAC PO ; Start 07/25/17 at 07:30 Isosorbide Mononitrate (Imdur) 60 mg DAILY PO ; Start 07/25/17 at 09:00 Metoprolol Succinate (Toprol Xl) 50 mg DAILY PO ; Start 07/25/17 at 09:00 Fish Oil (Fish Oil) 1,000 mg DAILY PO ; Start 07/25/17 at 09:00 Atorvastatin Calcium (Lipitor) 5 mg QHS PO ; Start 07/24/17 at 21:00; Status Cancel Insulin Aspart (NovoLOG) 0-7 UNITS TIDWMEALS SQ ; Start 07/24/17 at 12:00; Stop 07/24/17 at 17:34; Status DC Dextrose (Dextrose 50%-Water Syringe) 12.5 gm PRN Q15MIN PRN IV SEE COMMENTS; Start 07/24/17 at 11:30; Status UNV Magnesium Sulfate/ Dextrose 100 ml @ 100 mls/hr 1X ONCE IV Last administered on 07/24/17 14:21; Start 07/24/17 at 13:00; Stop 07/24/17 at 13:59; Status DC Atorvastatin Calcium (Lipitor) 40 mg QHS PO Last administered on 07/24/17 22: 03; Start 07/24/17 at 21:00 Insulin Aspart (NovoLOG) 0-7 UNITS Q6HRS SQ Last administered on 07/25/17 06: 23; Start 07/24/17 at 18:00 Cefepime HCl (Maxipime) 1 gm Q24H IVP ; Start 07/24/17 at 20:00; Status Cancel Cefepime HCl (Maxipime) 1 gm Q24H IVP ; Start 07/25/17 at 20:00 Acetaminophen (Tylenol) 650 mg PRN Q6HRS PRN PEG MILD PAIN / TEMP Last administered on 07/25/17 02:00; Start 07/25/17 at 01:15 Nitroglycerin/ Dextrose 250 ml @ 0 mls/hr CONT PRN IV SEE I/O RECORD; Start at 09:30 Active Scripts Active Reported Pravastatin Sodium 20 Mg Tablet 20 Mg PO DAILY Pantoprazole Sodium 40 Mg Tablet.dr 40 Mg PO DAILY [place] 3 Fish Oil Softgel ([place]-3 Fatty Acids/Fish Oil) 1 Each Capsule. 1,000 Mg PO DAILY Toprol Xl (Metoprolol Succinate) 50 Mg Tab.er.24h 1 Tab PO DAILY Isosorbide Mononitrate Er (Isosorbide Mononitrate) 60 Mg Tab.er.24h 1 Tab PO DAILY Humalog (Insulin Lispro) 100 Unit/1 Ml Cartridge 5-8 Unit SQ TIDBFRMEAL Vitamin D3 (Cholecalciferol (Vitamin D3)) 1,000 Unit Tablet 1 Tab PO DAILY Aspir 81 (Aspirin) 81 Mg Tablet. 1 Tab PO DAILY Ascorbic Acid 250 Mg Tablet 250 Mg PO Hydrocodone-Apap 5-325 (Hydrocodone Bit/Acetaminophen) 1 Each Tablet 2 Tab PO PRN Q4HRS PRN Hydrocodone-Apap 5-325 (Hydrocodone Bit/Acetaminophen) 1 Each Tablet 1 Tab PO PRN Q4HRS PRN Amlodipine Besylate 5 Mg Tablet 5 Mg PO DAILY Vitals/I & O Vital Sign - Last 24 Hours 07/24/17 07/24/17 07/24/17 07/24/17 11:00 11:59 12:00 12:00 Temp 100.2 100.2 Pulse 74 78 Resp 18 18 B/P (MAP) 148/68 (94) 150/66 (94) Pulse Ox 100 100 100 O2 Delivery Ventilator Ventilator Ventilator Mechanical Ventilator 07/24/17 07/24/17 07/24/17 07/24/17 13:00 14:00 15:00 15:39 Pulse 79 81 74 Resp 18 18 18 B/P (MAP) 149/64 (92) 151/67 (95) 142/58 (86) Pulse Ox 100 100 100 100 O2 Delivery Ventilator Ventilator Ventilator Ventilator 07/24/17 07/24/17 07/24/17 07/24/17 16:00 16:00 17:00 18:00 Temp 99.0 99.0 Pulse 80 79 78 Resp 18 18 18 B/P (MAP) 142/66 (91) 143/60 (87) 141/58 (85) Pulse Ox 100 100 100 O2 Delivery Mechanical Ventilator Ventilator Ventilator Ventilator 07/24/17 07/24/17 07/24/17 07/24/17 18:00 19:00 20:00 20:00 Temp 100.3 100.3 Pulse 78 78 Resp 18 18 B/P (MAP) 143/58 (86) 144/61 (88) Pulse Ox 100 100 100 O2 Delivery Ventilator Ventilator Ventilator Mechanical Ventilator 07/24/17 07/24/17 07/24/17 07/24/17 20:02 21:00 22:00 22:50 Pulse 80 83 Resp 18 18 B/P (MAP) 111/52 (71) 149/59 (89) Pulse Ox 100 100 100 100 O2 Delivery Ventilator Ventilator Ventilator Ventilator 07/24/17 07/24/17 07/25/17 07/25/17 23:00 23:59 00:00 01:00 Temp 99.0 99.0 Pulse 78 78 84 Resp 18 18 18 B/P (MAP) 145/71 (95) 133/55 (81) 147/61 (89) Pulse Ox 99 99 99 O2 Delivery Ventilator Mechanical Ventilator Ventilator Ventilator 07/25/17 07/25/17 07/25/17 07/25/17 02:00 02:01 03:00 03:20 Pulse 79 73 Resp 18 19 B/P (MAP) 140/58 (85) 119/49 (72) Pulse Ox 99 100 99 100 O2 Delivery Ventilator Ventilator Ventilator Ventilator 07/25/17 07/25/17 07/25/17 07/25/17 04:00 04:00 05:00 05:42 Temp 99.3 99.3 Pulse 70 79 Resp 17 17 B/P (MAP) 119/52 (74) 112/49 (70) Pulse Ox 99 99 100 O2 Delivery Ventilator Mechanical Ventilator Ventilator Ventilator 07/25/17 07/25/17 07/25/17 07/25/17 06:00 07:00 07:19 08:00 Temp 98.7 98.7 Pulse 77 81 78 Resp 17 22 18 B/P (MAP) 137/59 (85) 124/49 (74) 149/64 (92) Pulse Ox 99 98 100 99 O2 Delivery Ventilator Ventilator Ventilator Ventilator 07/25/17 07/25/17 07/25/17 08:35 09:00 09:19 Pulse 85 Resp 26 B/P (MAP) 147/59 (88) Pulse Ox 99 99 O2 Delivery Ventilator Ventilator Ventilator Intake and Output 07/25/17 07/25/17 07/26/17 15:00 23:00 07:00 Intake Total 95 ml Output Total 140 ml Balance -45 ml GIO SMITH MD Jul 25, 2017 10:10
[2017-07-25] MEDS: amLODIPine BESYLATE 5 MG TABLET PO SCH (10:39)
[2017-07-25] MEDS: ASPIRIN 300 MG SUPP.RECT PR SCH (10:39)
[2017-07-25] MEDS: LACTOBACILLUS RHAMNOSUS GG 1 CAPSULE. PO SCH ×2 (10:39→20:46)
[2017-07-25] MEDS: CHOLECALCIFEROL (VITAMIN D3) 1,000 UNIT TABLET PO SCH (10:39)
[2017-07-25] MEDS: OMEGA-3 FATTY ACIDS/FISH OIL 1,000 MG CAPSULE. PO SCH (10:39)
[2017-07-25] MEDS: METOPROLOL TART IMMED RELEASE 25 MG TABLET. PO SCH ×2 (11:18→20:48)
--- NOTE | 2017-07-25 13:05 | PDOC ---
PULMONARY PROGRESS NOTES Subjective PT SEEN ON PS TRIAL READY FOR TUBE TO COME OUT Vitals Vital Signs Date Time Temp Pulse Resp B/P (MAP) Pulse Ox O2 Delivery O2 Flow Rate FiO2 07/25/17 12:00 98.7 82 138/54 (82) 97 Nasal Cannula 6.0 98.7 07/25/17 10:00 28 Lungs: Clear Cardiovascular: S1, S2 Abdomen: Soft Neuro Exam: Alert Extremities: No Edema Skin: Warm Labs Laboratory Tests Test 07/23/17 18:47 07/23/17 18:52 07/23/17 18:53 07/23/17 19:20 White Blood Count 14.0 x10^3/uL (4.0-11.0) Red Blood Count 3.38 x10^6/uL (3.50-5.40) Hemoglobin 10.7 g/dL (12.0-15.5) Hematocrit 32.9 % (36.0-47.0) Mean Corpuscular Volume 97 fL (79-100) Mean Corpuscular Hemoglobin 32 pg (25-35) Mean Corpuscular Hemoglobin Concent 33 g/dL (31-37) Red Cell Distribution Width 15.4 % (11.5-14.5) Platelet Count 184 x10^3/uL (140-400) Neutrophils (%) (Auto) 71 % (31-73) Lymphocytes (%) (Auto) 21 % (24-48) Monocytes (%) (Auto) 6 % (0-9) Eosinophils (%) (Auto) 2 % (0-3) Basophils (%) (Auto) 0 % (0-3) Neutrophils # (Auto) 9.9 x10^3uL (1.8-7.7) Lymphocytes # (Auto) 2.9 x10^3/uL (1.0-4.8) Monocytes # (Auto) 0.9 x10^3/uL (0.0-1.1) Eosinophils # (Auto) 0.2 x10^3/uL (0.0-0.7) Basophils # (Auto) 0.0 x10^3/uL (0.0-0.2) Prothrombin Time 13.7 SEC (11.7-14.0) Prothromb Time International Ratio 1.1 (0.8-1.1) Activated Partial Thromboplast Time 28 SEC (24-38) Lactic Acid Level 5.2 mmol/L (0.4-2.0) Bedside Troponin I 0.69 ng/ml (<0.08) Bedside Hemoglobin 11.2 g/dL (12-15) Bedside Hematocrit 33 % (36-40) Bedside Sodium 135 mmol/L (135-145) Bedside Potassium 5.4 mmol/L (3.5-5.0) Bedside Chloride 106 mmol/L (98-110) Bedside Total CO2 18 mmol/L (23-32) Anion Gap 17 mmol/L (6-14) Bedside Blood Urea Nitrogen 44 mg/dL (8-26) Bedside Creatinine 2.6 mg/dL (0.5-1.4) Glucose Level 214 mg/dL (70-99) Bedside Ionized Calcium (Warner) 1.04 mmol/L (1.13-1.32) O2 Saturation 94 % (92-99) Arterial Blood pH 7.23 (7.35-7.45) Arterial Blood pCO2 at Patient Temp 44 mmHg (35-46) Arterial Blood pO2 at Patient Temp 84 mmHg (65-108) Arterial Blood HCO3 18 mmol/L (21-28) Arterial Blood Base Excess -9 mmol/L (-3-3) FiO2 100 Test 07/23/17 21:45 07/24/17 00:00 07/24/17 00:20 07/24/17 05:00 O2 Saturation 91 % (92-99) Arterial Blood pH 7.33 (7.35-7.45) Arterial Blood pCO2 at Patient Temp 34 mmHg (35-46) Arterial Blood pO2 at Patient Temp 65 mmHg (65-108) Arterial Blood HCO3 18 mmol/L (21-28) Arterial Blood Base Excess -7 mmol/L (-3-3) FiO2 60 Nasal Screen MRSA (PCR) Negative (Negative) Lactic Acid Level 1.5 mmol/L (0.4-2.0) Troponin I Quantitative 10.629 ng/mL (0.000-0.055) Test 07/24/17 05:30 07/24/17 07:45 07/24/17 12:09 07/24/17 17:30 White Blood Count 11.4 x10^3/uL (4.0-11.0) Red Blood Count 2.84 x10^6/uL (3.50-5.40) Hemoglobin 8.9 g/dL (12.0-15.5) Hematocrit 27.6 % (36.0-47.0) Mean Corpuscular Volume 97 fL (79-100) Mean Corpuscular Hemoglobin 31 pg (25-35) Mean Corpuscular Hemoglobin Concent 32 g/dL (31-37) Red Cell Distribution Width 15.3 % (11.5-14.5) Platelet Count 113 x10^3/uL (140-400) Sodium Level 137 mmol/L (136-145) Potassium Level 3.4 mmol/L (3.5-5.1) Chloride Level 104 mmol/L (98-107) Carbon Dioxide Level 18 mmol/L (21-32) Anion Gap 15 (6-14) Blood Urea Nitrogen 29 mg/dL (7-20) Creatinine 2.3 mg/dL (0.6-1.0) Estimated GFR (Cockcroft-Gault) 20.4 Glucose Level 119 mg/dL (70-99) Calcium Level 7.6 mg/dL (8.5-10.1) Magnesium Level 1.7 mg/dL (1.8-2.4) Triglycerides Level 133 mg/dL (0-150) Cholesterol Level 100 mg/dL (0-200) LDL Cholesterol, Calculated 54 mg/dL (0-100) VLDL Cholesterol, Calculated 27 mg/dL (0-40) Non-HDL Cholesterol Calculated 81 mg/dL (0-129) HDL Cholesterol 19 mg/dL (40-60) Cholesterol/HDL Ratio 5.3 O2 Saturation 98 % (92-99) Arterial Blood pH 7.45 (7.35-7.45) Arterial Blood pCO2 at Patient Temp 25 mmHg (35-46) Arterial Blood pO2 at Patient Temp 129 mmHg (65-108) Arterial Blood HCO3 17 mmol/L (21-28) Arterial Blood Base Excess -6 mmol/L (-3-3) FiO2 60 Glucose (Fingerstick) 113 mg/dL (70-99) Heparin Anti-Xa Act, Unfractionated < 0.10 IU/mL (0.30-0.70) Test 07/24/17 18:43 07/24/17 22:30 07/25/17 00:20 07/25/17 00:22 Glucose (Fingerstick) 119 mg/dL (70-99) 124 mg/dL (70-99) Troponin I Quantitative 6.385 ng/mL (0.000-0.055) Heparin Anti-Xa Act, Unfractionated 0.21 IU/mL (0.30-0.70) Test 07/25/17 06:14 07/25/17 06:15 07/25/17 08:15 07/25/17 09:20 Glucose (Fingerstick) 170 mg/dL (70-99) White Blood Count 9.0 x10^3/uL (4.0-11.0) Red Blood Count 2.65 x10^6/uL (3.50-5.40) Hemoglobin 8.5 g/dL (12.0-15.5) Hematocrit 25.3 % (36.0-47.0) Mean Corpuscular Volume 96 fL (79-100) Mean Corpuscular Hemoglobin 32 pg (25-35) Mean Corpuscular Hemoglobin Concent 34 g/dL (31-37) Red Cell Distribution Width 15.4 % (11.5-14.5) Platelet Count 133 x10^3/uL (140-400) Sodium Level 139 mmol/L (136-145) Potassium Level 3.2 mmol/L (3.5-5.1) Chloride Level 107 mmol/L (98-107) Carbon Dioxide Level 19 mmol/L (21-32) Anion Gap 13 (6-14) Blood Urea Nitrogen 23 mg/dL (7-20) Creatinine 2.1 mg/dL (0.6-1.0) Estimated GFR (Cockcroft-Gault) 22.7 Glucose Level 178 mg/dL (70-99) Calcium Level 7.9 mg/dL (8.5-10.1) Phosphorus Level 3.4 mg/dL (2.6-4.7) Magnesium Level 2.1 mg/dL (1.8-2.4) Heparin Anti-Xa Act, Unfractionated > 1.10 IU/mL (0.30-0.70) O2 Saturation 96 % (92-99) Arterial Blood pH 7.38 (7.35-7.45) Arterial Blood pCO2 at Patient Temp 30 mmHg (35-46) Arterial Blood pO2 at Patient Temp 89 mmHg (65-108) Arterial Blood HCO3 17 mmol/L (21-28) Arterial Blood Base Excess -7 mmol/L (-3-3) FiO2 40 Test 07/25/17 12:19 Glucose (Fingerstick) 205 mg/dL (70-99) Laboratory Tests Test 07/24/17 17:30 07/24/17 18:43 07/24/17 22:30 07/25/17 00:20 Heparin Anti-Xa Act, Unfractionated < 0.10 IU/mL (0.30-0.70) 0.21 IU/mL (0.30-0.70) Glucose (Fingerstick) 119 mg/dL (70-99) Troponin I Quantitative 6.385 ng/mL (0.000-0.055) Test 07/25/17 00:22 07/25/17 06:14 07/25/17 06:15 07/25/17 08:15 Glucose (Fingerstick) 124 mg/dL (70-99) 170 mg/dL (70-99) White Blood Count 9.0 x10^3/uL (4.0-11.0) Red Blood Count 2.65 x10^6/uL (3.50-5.40) Hemoglobin 8.5 g/dL (12.0-15.5) Hematocrit 25.3 % (36.0-47.0) Mean Corpuscular Volume 96 fL (79-100) Mean Corpuscular Hemoglobin 32 pg (25-35) Mean Corpuscular Hemoglobin Concent 34 g/dL (31-37) Red Cell Distribution Width 15.4 % (11.5-14.5) Platelet Count 133 x10^3/uL (140-400) Sodium Level 139 mmol/L (136-145) Potassium Level 3.2 mmol/L (3.5-5.1) Chloride Level 107 mmol/L (98-107) Carbon Dioxide Level 19 mmol/L (21-32) Anion Gap 13 (6-14) Blood Urea Nitrogen 23 mg/dL (7-20) Creatinine 2.1 mg/dL (0.6-1.0) Estimated GFR (Cockcroft-Gault) 22.7 Glucose Level 178 mg/dL (70-99) Calcium Level 7.9 mg/dL (8.5-10.1) Phosphorus Level 3.4 mg/dL (2.6-4.7) Magnesium Level 2.1 mg/dL (1.8-2.4) Heparin Anti-Xa Act, Unfractionated > 1.10 IU/mL (0.30-0.70) Test 07/25/17 09:20 07/25/17 12:19 O2 Saturation 96 % (92-99) Arterial Blood pH 7.38 (7.35-7.45) Arterial Blood pCO2 at Patient Temp 30 mmHg (35-46) Arterial Blood pO2 at Patient Temp 89 mmHg (65-108) Arterial Blood HCO3 17 mmol/L (21-28) Arterial Blood Base Excess -7 mmol/L (-3-3) FiO2 40 Glucose (Fingerstick) 205 mg/dL (70-99) Medications Active Scripts Medications Dose Route/Sig Max Daily Dose Days Date Category Pravastatin Sodium 20 Mg Tablet 20 Mg PO DAILY 07/24/17 Reported Pantoprazole Sodium 40 Mg Tablet.dr 40 Mg PO DAILY 07/24/17 Reported [place] 3 Fish Oil Softgel ([place]-3 Fatty Acids/Fish Oil) 1 Each Capsule.dr 1,000 Mg PO DAILY 07/24/17 Reported Toprol Xl (Metoprolol Succinate) 50 Mg Tab.er.24h 1 Tab PO DAILY 07/24/17 Reported Isosorbide Mononitrate Er (Isosorbide Mononitrate) 60 Mg Tab.er.24h 1 Tab PO DAILY 07/24/17 Reported Humalog (Insulin Lispro) 100 Unit/1 Ml Cartridge 5-8 Unit SQ TIDBFRMEAL 07/24/17 Reported Vitamin D3 (Cholecalciferol (Vitamin D3)) 1,000 Unit Tablet 1 Tab PO DAILY 07/24/17 Reported Aspir 81 (Aspirin) 81 Mg Tablet.dr 1 Tab PO DAILY 07/24/17 Reported Ascorbic Acid 250 Mg Tablet 250 Mg PO 07/24/17 Reported Hydrocodone-Apap 5-325 (Hydrocodone Bit/Acetaminophen) 1 Each Tablet 2 Tab PO PRN Q4HRS PRN 07/24/17 Reported Hydrocodone-Apap 5-325 (Hydrocodone Bit/Acetaminophen) 1 Each Tablet 1 Tab PO PRN Q4HRS PRN 07/24/17 Reported Amlodipine Besylate 5 Mg Tablet 5 Mg PO DAILY 07/24/17 Reported Impression . IMPRESSION: 1. Acute respiratory failure, multifactorial. 2. Acute diastolic, systolic heart failure. 3. Non-ST segment elevation myocardial infarction. 4. Recent right carotid endarterectomy performed on July 22. 5. Possible sepsis. 6. Fever. 7. Leukocytosis. 8. Coronary artery disease requiring coronary artery bypass grafting. 9. Anemia. 10. Chronic kidney disease. Plan . PT DID WELL ON TRIAL WILL EXTUBATE SPOKE WITH DAUGHTER 1. Continue broad coverage antibiotics. 2. Consult Cardiology, already performed. 3. Consult Nephrology already performed. 4. Titrate FiO2. 5. Continue heparin. 6. A.m. labs and chest x-ray. ZAFAR LANIER MD Jul 25, 2017 13:05
--- NOTE | 2017-07-25 15:10 | PDOC ---
SUBJECTIVE ROS CKD III/ IV doing OK , no CP currently CVS: no Orthopnea, no CP RESP: no SOB, no OCAMPO GI: no Nausea, no Vomiting : no Dysuria, no Urgency OBJECTIVE Vital Signs Vital Signs Date Time Temp Pulse Resp B/P (MAP) Pulse Ox O2 Delivery O2 Flow Rate FiO2 07/25/17 14:00 81 28 123/53 (76) 97 Nasal Cannula 4.0 07/25/17 12:00 98.7 98.7 I & 0 Intake and Output 07/26/17 07:00 Intake Total 170 ml Output Total 990 ml Balance -820 ml Tube Feeding 150 ml Other 20 ml Output Urine Total 990 ml PHYSICAL EXAM Physical Exam GEN: Awake, Oriented x 3, In no distress (extubated) EYES: Vision Unchanged, Conjunctiva Normal EN: No EN Drainage, Mucous Membranes dryish NECK: no JVD, + JVP, Supple, no Thyromegaly CVS: S1S2, + Murmur, No Gallop, No Rub,no Edema RESP: ? rare bsasal Rales, no Rhonchi,no Acc. Muscle Use GI: BS + ve, NO Bruit, Non Tender, Non Distended : no CVA tenderness, no Suprapubic Tenderness DIAGNOSIS/ASSESSMENT Assessment & Plan CKD IV - stabel from [facility]. ? May improve with VHDz ? repair. Current fluid and E-lyte status does not necessitate emergent need for dialysis. Will re- evaluate for dialysis in the am HypoKalemia - K replacemnet protocol ANEMIA; Aranap as ordered, Transfuse as needed CHF - -ve fluid balance ongoing - watch trend HTN: Current BP meds as reviewed. See orders for changes. Discussed Plan of Care with family at bedside Problems: COMMENT/RELEVANT DATA Meds Current Medications Medications (Trade) Dose Ordered Sig/Beryl Start Time Stop Time Status Last Admin Dose Admin Acetaminophen (Tylenol) 650 mg PRN Q6HRS PRN 07/25/17 01:15 07/25/17 02:00 650 MG Acetaminophen/ Hydrocodone Bitart (Lortab 5/325) 2 tab PRN Q4HRS PRN 07/24/17 11:30 Amlodipine Besylate (Norvasc) 5 mg DAILY 07/25/17 09:00 07/25/17 10:39 5 MG Aspirin (Aspirin) 300 mg DAILY 07/25/17 10:30 07/25/17 10:39 300 MG Aspirin (Ecotrin) 81 mg DAILY 07/25/17 09:00 Cancel Atorvastatin Calcium (Lipitor) 40 mg QHS 07/24/17 21:00 07/24/17 22:03 40 MG Cefepime HCl (Maxipime) 1 gm Q24H 07/25/17 20:00 Cefepime HCl 1 gm/ Dextrose 50 ml @ 100 mls/hr 1X ONCE 07/23/17 20:00 07/23/17 20:29 DC 07/23/17 20:10 100 MLS/HR Dextrose (Dextrose 50%-Water Syringe) 12.5 gm PRN Q15MIN PRN 07/24/17 11:30 UNV Etomidate (Amidate) 20 mg STK-MED ONCE 07/24/17 01:55 07/24/17 01:56 DC Famotidine (Pepcid) 20 mg QHS 07/25/17 21:00 Fish Oil (Fish Oil) 1,000 mg DAILY 07/25/17 09:00 07/25/17 10:39 1,000 MG Heparin Sodium (Porcine) (Heparin Sodium) 1,550 unit PRN Q6HRS PRN 07/24/17 06:45 07/24/17 18:40 1,550 UNIT Heparin Sodium/ Dextrose 500 ml @ 0 mls/hr CONT PRN 07/24/17 06:45 07/24/17 07:57 14.8 MLS/HR Info (Anti-Coagulation Monitoring By Pharmacy) 1 each PRN DAILY PRN 07/24/17 07:00 07/25/17 10:01 1 EACH Insulin Aspart (NovoLOG) 0-7 UNITS Q6HRS 07/24/17 18:00 07/25/17 12:21 2 UNITS Isosorbide Dinitrate (Isordil) 20 mg TID 07/25/17 14:00 Isosorbide Mononitrate (Imdur) 60 mg DAILY 07/25/17 09:00 07/25/17 11:09 DC Lactobacillus Rhamnosus (Culturelle) 1 cap BID 07/24/17 09:00 07/25/17 10:39 1 CAP Magnesium Sulfate/ Dextrose 100 ml @ 100 mls/hr 1X ONCE 07/24/17 13:00 07/24/17 13:59 DC 07/24/17 14:21 100 MLS/HR Metoprolol Succinate (Toprol Xl) 50 mg DAILY 07/25/17 09:00 07/25/17 11:09 DC Metoprolol Tartrate (Lopressor) 25 mg BID 07/25/17 11:30 07/25/17 11:18 25 MG Nitroglycerin (Nitrostat) 0.4 mg PRN Q5MIN PRN 07/24/17 11:30 Nitroglycerin/ Dextrose 250 ml @ 0 mls/hr CONT PRN 07/25/17 09:30 07/25/17 11:23 1.5 MLS/HR Pantoprazole Sodium (Protonix) 40 mg DAILYAC 07/25/17 07:30 07/25/17 10:12 DC Potassium Chloride 100 ml @ 100 mls/hr Q1H 07/24/17 11:00 07/24/17 12:59 DC 07/24/17 12:57 100 MLS/HR Propofol 100 ml @ 0 mls/hr CONT PRN 07/23/17 22:15 07/25/17 04:20 0.15 MLS/HR Rocuronium [place] (Zemuron) 50 mg 1X ONCE 07/23/17 19:15 07/23/17 19:16 DC 07/23/17 19:15 50 MG Sodium Chloride 500 ml @ 500 mls/hr 1X ONCE 07/24/17 01:30 07/24/17 02:29 DC 07/24/17 01:30 500 MLS/HR Succinylcholine Chloride (Anectine) 200 mg STK-MED ONCE 07/24/17 01:56 07/24/17 01:57 DC Vancomycin HCl 1 each 1X ONCE 07/27/17 20:30 07/27/17 20:31 Vancomycin HCl (Vanco Per Pharmacy) 1 each PRN DAILY PRN 07/23/17 21:30 07/24/17 14:37 1 EACH Vancomycin HCl 1.25 gm/Sodium Chloride 250 ml @ 166.667 mls/hr 1X ONCE 07/23/17 19:45 07/23/17 21:14 UNV Vancomycin HCl 1.75 gm/Dextrose 500 ml @ 250 mls/hr 1X ONCE 07/23/17 20:00 07/23/17 21:59 DC 07/23/17 21:12 250 MLS/HR Vancomycin HCl 1 gm/Dextrose 250 ml @ 250 mls/hr Q48H 07/25/17 21:00 Vitamin D (Vitamin D3) 1,000 unit DAILY 07/25/17 09:00 07/25/17 10:39 1,000 UNIT Lab Laboratory Tests Test 07/24/17 17:30 07/24/17 18:43 07/24/17 22:30 07/25/17 00:20 Heparin Anti-Xa Act, Unfractionated < 0.10 IU/mL (0.30-0.70) 0.21 IU/mL (0.30-0.70) Glucose (Fingerstick) 119 mg/dL (70-99) Troponin I Quantitative 6.385 ng/mL (0.000-0.055) Test 07/25/17 00:22 07/25/17 06:14 07/25/17 06:15 07/25/17 08:15 Glucose (Fingerstick) 124 mg/dL (70-99) 170 mg/dL (70-99) White Blood Count 9.0 x10^3/uL (4.0-11.0) Red Blood Count 2.65 x10^6/uL (3.50-5.40) Hemoglobin 8.5 g/dL (12.0-15.5) Hematocrit 25.3 % (36.0-47.0) Mean Corpuscular Volume 96 fL (79-100) Mean Corpuscular Hemoglobin 32 pg (25-35) Mean Corpuscular Hemoglobin Concent 34 g/dL (31-37) Red Cell Distribution Width 15.4 % (11.5-14.5) Platelet Count 133 x10^3/uL (140-400) Sodium Level 139 mmol/L (136-145) Potassium Level 3.2 mmol/L (3.5-5.1) Chloride Level 107 mmol/L (98-107) Carbon Dioxide Level 19 mmol/L (21-32) Anion Gap 13 (6-14) Blood Urea Nitrogen 23 mg/dL (7-20) Creatinine 2.1 mg/dL (0.6-1.0) Estimated GFR (Cockcroft-Gault) 22.7 Glucose Level 178 mg/dL (70-99) Calcium Level 7.9 mg/dL (8.5-10.1) Phosphorus Level 3.4 mg/dL (2.6-4.7) Magnesium Level 2.1 mg/dL (1.8-2.4) Heparin Anti-Xa Act, Unfractionated > 1.10 IU/mL (0.30-0.70) Test 07/25/17 09:20 07/25/17 12:19 07/25/17 14:00 O2 Saturation 96 % (92-99) Arterial Blood pH 7.38 (7.35-7.45) Arterial Blood pCO2 at Patient Temp 30 mmHg (35-46) Arterial Blood pO2 at Patient Temp 89 mmHg (65-108) Arterial Blood HCO3 17 mmol/L (21-28) Arterial Blood Base Excess -7 mmol/L (-3-3) FiO2 40 Glucose (Fingerstick) 205 mg/dL (70-99) Heparin Anti-Xa Act, Unfractionated 0.67 IU/mL (0.30-0.70) JUVENAL LEAVITT MD Jul 25, 2017 15:10
[2017-07-25] MEDS: ISOSORBIDE DINITRATE 10 MG TABLET. PO SCH ×2 (16:04→20:47)
[2017-07-25] MEDS: CEFEPIME HCL IV Push 1 GM VIAL. IVP SCH (20:40)
[2017-07-25] MEDS: FAMOTIDINE 20 MG/2 ML VIAL IVP SCH (20:46)
[2017-07-25] MEDS: ATORVASTATIN CALCIUM 40 MG TABLET. PO SCH (20:46)
[2017-07-25] MEDS ORDERED: VANCOMYCIN 1 GM in IV DEXTROSE 5% 250 ML IV SCH (21:00)
[2017-07-26] VITALS (24 sets, daily range): BP systolic 93–139; BP diastolic 40–72
[2017-07-26] MEDS: HEPARIN for IV BOLUS 10,000 UNIT/10 ML VIAL. IV PRN (00:11)
[2017-07-26] MEDS: INSULIN ASPART 300 UNITS/3 ML INSULN.PEN SQ SCH ×4 (06:00→18:00)
[2017-07-26 06:25] LABS: CALCIUM 8.1 mg/dL (8.5-10.1); MAGNESIUM 2.3 mg/dL (1.8-2.4); POTASSIUM 3.5 mmol/L (3.5-5.1)
[2017-07-26] MEDS: ASPIRIN 300 MG SUPP.RECT PR SCH (09:00)
--- NOTE | 2017-07-26 09:45 | PDOC ---
CARDIOLOGY PROGRESS NOTE SUBJECTIVE: No acute events overnight. Extubated yesterday. Denies any chest pain this am. OBJECTIVE: Vital SIgns: Vital Signs Date Time Temp Pulse Resp B/P (MAP) Pulse Ox O2 Delivery O2 Flow Rate FiO2 07/26/17 09:00 77 22 125/60 (81) 97 Nasal Cannula 4.0 07/26/17 08:00 98.6 98.6 I & O Intake and Output 07/27/17 07:00 Output Total 70 ml Balance -70 ml Output Urine Total 70 ml Objective: Gen: A/O x 3. NAD CVS: RRR, 4/6 systolic murmur consistent with PULM: Bilateral rhonchi ABD: soft NO edema. CURRENT MEDICATIONS: Current Medications Medications (Trade) Dose Ordered Sig/Beryl Start Time Stop Time Status Last Admin Dose Admin Acetaminophen (Tylenol) 650 mg PRN Q6HRS PRN 07/25/17 01:15 07/25/17 02:00 650 MG Acetaminophen/ Hydrocodone Bitart (Lortab 5/325) 2 tab PRN Q4HRS PRN 07/24/17 11:30 Amlodipine Besylate (Norvasc) 5 mg DAILY 07/25/17 09:00 07/25/17 10:39 5 MG Aspirin (Aspirin) 300 mg DAILY 07/25/17 10:30 07/25/17 10:39 300 MG Aspirin (Ecotrin) 81 mg DAILY 07/25/17 09:00 Cancel Atorvastatin Calcium (Lipitor) 40 mg QHS 07/24/17 21:00 07/25/17 20:46 40 MG Cefepime HCl (Maxipime) 1 gm Q24H 07/25/17 20:00 07/25/17 20:40 1 GM Cefepime HCl 1 gm/ Dextrose 50 ml @ 100 mls/hr 1X ONCE 07/23/17 20:00 07/23/17 20:29 DC 07/23/17 20:10 100 MLS/HR Dextrose (Dextrose 50%-Water Syringe) 12.5 gm PRN Q15MIN PRN 07/24/17 11:30 UNV Etomidate (Amidate) 20 mg STK-MED ONCE 07/24/17 01:55 07/24/17 01:56 DC Famotidine (Pepcid) 20 mg QHS 07/25/17 21:00 07/25/17 20:46 20 MG Fish Oil (Fish Oil) 1,000 mg DAILY 07/25/17 09:00 07/25/17 10:39 1,000 MG Heparin Sodium (Porcine) (Heparin Sodium) 1,550 unit PRN Q6HRS PRN 07/24/17 06:45 07/26/17 00:11 1,550 UNIT Heparin Sodium/ Dextrose 500 ml @ 0 mls/hr CONT PRN 07/24/17 06:45 07/24/17 07:57 14.8 MLS/HR Info (Anti-Coagulation Monitoring By Pharmacy) 1 each PRN DAILY PRN 07/24/17 07:00 07/25/17 10:01 1 EACH Insulin Aspart (NovoLOG) 0-7 UNITS Q6HRS 07/24/17 18:00 07/25/17 12:21 2 UNITS Isosorbide Dinitrate (Isordil) 20 mg TID 07/25/17 14:00 07/25/17 20:47 20 MG Isosorbide Mononitrate (Imdur) 60 mg DAILY 07/25/17 09:00 07/25/17 11:09 DC Lactobacillus Rhamnosus (Culturelle) 1 cap BID 07/24/17 09:00 07/25/17 20:46 1 CAP Magnesium Sulfate/ Dextrose 100 ml @ 100 mls/hr 1X ONCE 07/24/17 13:00 07/24/17 13:59 DC 07/24/17 14:21 100 MLS/HR Metoprolol Succinate (Toprol Xl) 50 mg DAILY 07/25/17 09:00 07/25/17 11:09 DC Metoprolol Tartrate (Lopressor) 25 mg BID 07/25/17 11:30 07/25/17 20:48 25 MG Nitroglycerin (Nitrostat) 0.4 mg PRN Q5MIN PRN 07/24/17 11:30 Nitroglycerin/ Dextrose 250 ml @ 0 mls/hr CONT PRN 07/25/17 09:30 07/25/17 11:23 1.5 MLS/HR Pantoprazole Sodium (Protonix) 40 mg DAILYAC 07/25/17 07:30 07/25/17 10:12 DC Potassium Chloride 100 ml @ 100 mls/hr Q1H 07/24/17 11:00 07/24/17 12:59 DC 07/24/17 12:57 100 MLS/HR Propofol 100 ml @ 0 mls/hr CONT PRN 07/23/17 22:15 07/25/17 04:20 0.15 MLS/HR Rocuronium [place] (Zemuron) 50 mg 1X ONCE 07/23/17 19:15 07/23/17 19:16 DC 07/23/17 19:15 50 MG Sodium Chloride 500 ml @ 500 mls/hr 1X ONCE 07/24/17 01:30 07/24/17 02:29 DC 07/24/17 01:30 500 MLS/HR Succinylcholine Chloride (Anectine) 200 mg STK-MED ONCE 07/24/17 01:56 07/24/17 01:57 DC Vancomycin HCl 1 each 1X ONCE 07/27/17 20:30 07/27/17 20:31 Vancomycin HCl (Vanco Per Pharmacy) 1 each PRN DAILY PRN 07/23/17 21:30 07/24/17 14:37 1 EACH Vancomycin HCl 1.25 gm/Sodium Chloride 250 ml @ 166.667 mls/hr 1X ONCE 07/23/17 19:45 07/23/17 21:14 UNV Vancomycin HCl 1.75 gm/Dextrose 500 ml @ 250 mls/hr 1X ONCE 07/23/17 20:00 07/23/17 21:59 DC 07/23/17 21:12 250 MLS/HR Vancomycin HCl 1 gm/Dextrose 250 ml @ 250 mls/hr Q48H 07/25/17 21:00 07/25/17 20:46 250 MLS/HR Vitamin D (Vitamin D3) 1,000 unit DAILY 07/25/17 09:00 07/25/17 10:39 1,000 UNIT DIAGNOSTIC TESTING: Tele - no arrhythmias. ASSESSMENT: 1. NSTEMI with 3V disease 2. CKD 3. HTN 4. Dyslipidemia Problems: PLAN: 1. Restart home toprol and Imdur now that she is able to take p.o 2. Continue asa, statin 3. 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 I had a long conversation again with the patient about expedited surgery and not waiting as this may recur again. NASH PADRON MD Jul 26, 2017 09:45
[2017-07-26] MEDS: VANCOMYCIN PER PHARMACY MC PRN (10:09)
--- NOTE | 2017-07-26 10:16 | RAD ---
CHEST AP ONLY Clinical Indication: soa, post extubation Comparison: Chest radiograph dated 07/24/2017 Findings: Interval removal of endotracheal tube and enteric tube. Stable right PICC. Low lung volumes. Bibasilar heterogenous air space opacities. Pulmonary vascular indistinctness. Possible small bilateral pleural effusions. No pneumothorax. The cardiomediastinal silhouette and great vessels are stable. IMPRESSION: 1. Bibasilar heterogenous airspace opacities may relate to atelectasis, although edema or an infectious process cannot be excluded. 2. Possible small bilateral pleural effusions. 3. Interval removal of endotracheal tube and enteric tube. Stable right PICC.
[2017-07-26] MEDS: ANTI-COAG MONITOR BY PHARMACY. MC PRN (10:19)
--- NOTE | 2017-07-26 11:05 | PDOC ---
PROGRESS NOTES Chief Complaint Chief Complaint ASSESSMENT AND PLAN: 1. Acute respir failure sec to flash pulm edema extubated 07/25 (intub approx 2 days) 2. NSTEMI: CABG ideal but poor surgical candidate 3. CAD: with occluded stents (placed 2 yrs ago). 4. Recent Carotid endarcterectomy, L with 70% blockage ([facility]) 5. CKD: baseline 6. Hyperkalemia: reversed 7. DM2: controlled 8. Leukocytosis: reactive. 9. Anemia: suspect chronic dz, 10. HEadaches 11. 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 she can start some form of PO diet TYlenol for headache Heparin gtt to stop sometime today per cards Keep in iCU for now, possible downgrade tmr thursday Vitals Vitals Vital Signs Date Time Temp Pulse Resp B/P (MAP) Pulse Ox O2 Delivery O2 Flow Rate FiO2 07/26/17 10:00 74 126/58 (80) 97 Nasal Cannula 4.0 07/26/17 09:00 22 07/26/17 08:00 98.6 98.6 Physical Exam General: Alert, Cooperative, Other (sedated) Heart: Regular rate, Other (tachy) Lungs: Clear Abdomen: Soft Extremities: No edema Skin: No rashes Labs LABS Laboratory Tests Test 07/25/17 12:19 07/25/17 14:00 07/25/17 17:58 07/25/17 20:35 Glucose (Fingerstick) 205 mg/dL (70-99) 130 mg/dL (70-99) Heparin Anti-Xa Act, Unfractionated 0.67 IU/mL (0.30-0.70) < 0.10 IU/mL (0.30-0.70) Test 07/26/17 00:16 07/26/17 06:00 07/26/17 06:08 Glucose (Fingerstick) 146 mg/dL (70-99) 148 mg/dL (70-99) Heparin Anti-Xa Act, Unfractionated 0.17 IU/mL (0.30-0.70) Sodium Level 142 mmol/L (136-145) Potassium Level 3.5 mmol/L (3.5-5.1) Chloride Level 110 mmol/L (98-107) Carbon Dioxide Level 20 mmol/L (21-32) Anion Gap 12 (6-14) Blood Urea Nitrogen 23 mg/dL (7-20) Creatinine 2.0 mg/dL (0.6-1.0) Estimated GFR (Cockcroft-Gault) 24.0 Glucose Level 151 mg/dL (70-99) Calcium Level 8.1 mg/dL (8.5-10.1) Magnesium Level 2.3 mg/dL (1.8-2.4) Review of Systems Review of Systems headaches, o inc in soa, cp or abd pain or fevers Assessment and Plan Assessmemt and Plan Problems Medical Problems: (1) Acute renal failure Status: Acute (2) HCAP (healthcare-associated pneumonia) Status: Acute (3) NSTEMI (non-ST elevated myocardial infarction) Status: Acute Problems: Comment Review of Relevant I have reviewed the following items ion (where applicable) has been applied. Labs Laboratory Tests Test 07/24/17 12:09 07/24/17 17:30 07/24/17 18:43 07/24/17 22:30 Glucose (Fingerstick) 113 mg/dL (70-99) 119 mg/dL (70-99) Heparin Anti-Xa Act, Unfractionated < 0.10 IU/mL (0.30-0.70) Troponin I Quantitative 6.385 ng/mL (0.000-0.055) Test 07/25/17 00:20 07/25/17 00:22 07/25/17 06:14 07/25/17 06:15 Heparin Anti-Xa Act, Unfractionated 0.21 IU/mL (0.30-0.70) Glucose (Fingerstick) 124 mg/dL (70-99) 170 mg/dL (70-99) White Blood Count 9.0 x10^3/uL (4.0-11.0) Red Blood Count 2.65 x10^6/uL (3.50-5.40) Hemoglobin 8.5 g/dL (12.0-15.5) Hematocrit 25.3 % (36.0-47.0) Mean Corpuscular Volume 96 fL (79-100) Mean Corpuscular Hemoglobin 32 pg (25-35) Mean Corpuscular Hemoglobin Concent 34 g/dL (31-37) Red Cell Distribution Width 15.4 % (11.5-14.5) Platelet Count 133 x10^3/uL (140-400) Sodium Level 139 mmol/L (136-145) Potassium Level 3.2 mmol/L (3.5-5.1) Chloride Level 107 mmol/L (98-107) Carbon Dioxide Level 19 mmol/L (21-32) Anion Gap 13 (6-14) Blood Urea Nitrogen 23 mg/dL (7-20) Creatinine 2.1 mg/dL (0.6-1.0) Estimated GFR (Cockcroft-Gault) 22.7 Glucose Level 178 mg/dL (70-99) Calcium Level 7.9 mg/dL (8.5-10.1) Phosphorus Level 3.4 mg/dL (2.6-4.7) Magnesium Level 2.1 mg/dL (1.8-2.4) Test 07/25/17 08:15 07/25/17 09:20 07/25/17 12:19 07/25/17 14:00 Heparin Anti-Xa Act, Unfractionated > 1.10 IU/mL (0.30-0.70) 0.67 IU/mL (0.30-0.70) O2 Saturation 96 % (92-99) Arterial Blood pH 7.38 (7.35-7.45) Arterial Blood pCO2 at Patient Temp 30 mmHg (35-46) Arterial Blood pO2 at Patient Temp 89 mmHg (65-108) Arterial Blood HCO3 17 mmol/L (21-28) Arterial Blood Base Excess -7 mmol/L (-3-3) FiO2 40 Glucose (Fingerstick) 205 mg/dL (70-99) Test 07/25/17 17:58 07/25/17 20:35 07/26/17 00:16 07/26/17 06:00 Glucose (Fingerstick) 130 mg/dL (70-99) 146 mg/dL (70-99) Heparin Anti-Xa Act, Unfractionated < 0.10 IU/mL (0.30-0.70) 0.17 IU/mL (0.30-0.70) Sodium Level 142 mmol/L (136-145) Potassium Level 3.5 mmol/L (3.5-5.1) Chloride Level 110 mmol/L (98-107) Carbon Dioxide Level 20 mmol/L (21-32) Anion Gap 12 (6-14) Blood Urea Nitrogen 23 mg/dL (7-20) Creatinine 2.0 mg/dL (0.6-1.0) Estimated GFR (Cockcroft-Gault) 24.0 Glucose Level 151 mg/dL (70-99) Calcium Level 8.1 mg/dL (8.5-10.1) Magnesium Level 2.3 mg/dL (1.8-2.4) Test 07/26/17 06:08 Glucose (Fingerstick) 148 mg/dL (70-99) Laboratory Tests Test 07/25/17 12:19 07/25/17 14:00 07/25/17 17:58 07/25/17 20:35 Glucose (Fingerstick) 205 mg/dL (70-99) 130 mg/dL (70-99) Heparin Anti-Xa Act, Unfractionated 0.67 IU/mL (0.30-0.70) < 0.10 IU/mL (0.30-0.70) Test 07/26/17 00:16 07/26/17 06:00 07/26/17 06:08 Glucose (Fingerstick) 146 mg/dL (70-99) 148 mg/dL (70-99) Heparin Anti-Xa Act, Unfractionated 0.17 IU/mL (0.30-0.70) Sodium Level 142 mmol/L (136-145) Potassium Level 3.5 mmol/L (3.5-5.1) Chloride Level 110 mmol/L (98-107) Carbon Dioxide Level 20 mmol/L (21-32) Anion Gap 12 (6-14) Blood Urea Nitrogen 23 mg/dL (7-20) Creatinine 2.0 mg/dL (0.6-1.0) Estimated GFR (Cockcroft-Gault) 24.0 Glucose Level 151 mg/dL (70-99) Calcium Level 8.1 mg/dL (8.5-10.1) Magnesium Level 2.3 mg/dL (1.8-2.4) Microbiology 07/23/17 Blood Culture - Preliminary, Resulted NO GROWTH AFTER 2 DAYS Medications Current Medications Sodium Chloride 500 ml @ 500 mls/hr 1X ONCE IV Last administered on 20:16; Start 07/23/17 at 19:15; Stop 07/23/17 at 20:14; Status DC Rocuronium [place] (Zemuron) 50 mg 1X ONCE IV Last administered on 07/23/17 19:15; Start 07/23/17 at 19:15; Stop 07/23/17 at 19:16; Status DC Propofol 50 ml @ As Directed STK-MED ONCE IV ; Start 07/23/17 at 19:12; Stop 07/23/17 at 19:13; Status DC Propofol 50 ml @ 0 mls/hr 1X ONCE IV Last administered on 07/23/17 19:30; Start 07/23/17 at 19:30; Stop 07/23/17 at 19:31; Status DC Cefepime HCl 1 gm/ Dextrose 50 ml @ 100 mls/hr Q24H IV Last administered on 20:21; Start 07/24/17 at 20:00; Stop 07/24/17 at 23:00; Status DC Vancomycin HCl 1.25 gm/Sodium Chloride 250 ml @ 166.667 mls/hr 1X ONCE IV ; Start 07/23/17 at 19:45; Stop 07/23/17 at 21:14; Status UNV Cefepime HCl 1 gm/ Dextrose 50 ml @ 100 mls/hr 1X ONCE IV Last administered on 07/23/17 20:10; Start 07/23/17 at 20:00; Stop 07/23/17 at 20:29; Status DC Aspirin (Aspirin) 300 mg 1X ONCE [place] Last administered on 07/23/17 20:09; Start 07/23/17 at 20:00; Stop 07/23/17 at 20:01; Status DC Vancomycin HCl 1.75 gm/Dextrose 500 ml @ 250 mls/hr 1X ONCE IV Last administered on 07/23/17 21:12; Start 07/23/17 at 20:00; Stop 07/23/17 at 21 :59; Status DC Sodium Chloride 1,000 ml @ 150 mls/hr Q6H40M IV Last administered on 10:00; Start 07/23/17 at 20:01; Stop 07/24/17 at 15:34; Status DC Sodium Chloride 1,000 ml @ 1,000 mls/hr 1X ONCE IV Last administered on 07/23 20:30; Start 07/23/17 at 20:30; Stop 07/23/17 at 21:29; Status DC Vancomycin HCl (Vanco Per Pharmacy) 1 each PRN DAILY PRN MC SEE COMMENTS Last administered on 07/26/17 10:09; Start 07/23/17 at 21:30 Lactobacillus Rhamnosus (Culturelle) 1 cap BID PO Last administered on 20:46; Start 07/24/17 at 09:00 Sodium Chloride 500 ml @ 500 mls/hr 1X ONCE IV Last administered on 22:30; Start 07/23/17 at 22:30; Stop 07/23/17 at 23:29; Status DC Propofol 100 ml @ 0 mls/hr CONT PRN IV SEE I/O RECORD Last administered on 04:20; Start 07/23/17 at 22:15 Sodium Chloride 500 ml @ 500 mls/hr 1X ONCE IV Last administered on 01:30; Start 07/24/17 at 01:30; Stop 07/24/17 at 02:29; Status DC Etomidate (Amidate) 20 mg STK-MED ONCE IV ; Start 07/24/17 at 01:55; Stop at 01:56; Status DC Succinylcholine Chloride (Anectine) 200 mg STK-MED ONCE .ROUTE ; Start at 01:56; Stop 07/24/17 at 01:57; Status DC Vancomycin HCl 1 gm/Dextrose 250 ml @ 250 mls/hr Q48H IV Last administered on 07/25/17 20:46; Start 07/25/17 at 21:00 Vancomycin HCl 1 each 1X ONCE MC ; Start 07/27/17 at 20:30; Stop 07/27/17 at 20:31 Heparin Sodium (Porcine) (Heparin Sodium) 3,700 unit 1X ONCE IV Last administered on 07/24/17 07:56; Start 07/24/17 at 07:00; Stop 07/24/17 at 07 :01; Status DC Heparin Sodium/ Dextrose 500 ml @ 0 mls/hr CONT PRN IV SEE I/O RECORD Last administered on 07/24/17 07:57; Start 07/24/17 at 06:45 Heparin Sodium (Porcine) (Heparin Sodium) 1,550 unit PRN Q6HRS PRN IV FOR UFH LEVEL LESS THAN 0.2 Last administered on 07/26/17 00:11; Start 07/24/17 at 06 :45 Info (Anti-Coagulation Monitoring By Pharmacy) 1 each PRN DAILY PRN MC SEE COMMENTS Last administered on 07/26/17 10:19; Start 07/24/17 at 07:00 Potassium Chloride 100 ml @ 100 mls/hr Q1H IV Last administered on 07/24/17 12:57; Start 07/24/17 at 11:00; Stop 07/24/17 at 12:59; Status DC Insulin Aspart (NovoLOG) 0-5 UNITS TIDWMEALS SQ ; Start 07/24/17 at 12:00; Stop 07/24/17 at 12:00; Status DC Dextrose (Dextrose 50%-Water Syringe) 12.5 gm PRN Q15MIN PRN IV SEE COMMENTS; Start 07/24/17 at 10:45 Insulin Aspart (NovoLOG) 0-5 UNITS Q6HRS SQ ; Start 07/24/17 at 12:00; Stop at 12:00; Status DC Amlodipine Besylate (Norvasc) 5 mg DAILY PO Last administered on 07/25/17 10: 39; Start 07/25/17 at 09:00 Aspirin (Ecotrin) 81 mg DAILY PO ; Start 07/25/17 at 09:00; Status Cancel Vitamin D (Vitamin D3) 1,000 unit DAILY PO Last administered on 07/25/17 10: 39; Start 07/25/17 at 09:00 Acetaminophen/ Hydrocodone Bitart (Lortab 5/325) 1 tab PRN Q4HRS PRN PO PAIN; Start 07/24/17 at 11:30 Acetaminophen/ Hydrocodone Bitart (Lortab 5/325) 2 tab PRN Q4HRS PRN PO PAIN; Start 07/24/17 at 11:30 Nitroglycerin (Nitrostat) 0.4 mg PRN Q5MIN PRN SL CHEST PAIN; Start 07/24/17 at 11:30 Pantoprazole Sodium (Protonix) 40 mg DAILYAC PO ; Start 07/25/17 at 07:30; Stop 07/25/17 at 10:12; Status DC Isosorbide Mononitrate (Imdur) 60 mg DAILY PO ; Start 07/25/17 at 09:00; Stop 07/25/17 at 11:09; Status DC Metoprolol Succinate (Toprol Xl) 50 mg DAILY PO ; Start 07/25/17 at 09:00; Stop 07/25/17 at 11:09; Status DC Fish Oil (Fish Oil) 1,000 mg DAILY PO Last administered on 07/25/17 10:39; Start 07/25/17 at 09:00 Atorvastatin Calcium (Lipitor) 5 mg QHS PO ; Start 07/24/17 at 21:00; Status Cancel Insulin Aspart (NovoLOG) 0-7 UNITS TIDWMEALS SQ ; Start 07/24/17 at 12:00; Stop 07/24/17 at 17:34; Status DC Dextrose (Dextrose 50%-Water Syringe) 12.5 gm PRN Q15MIN PRN IV SEE COMMENTS; Start 07/24/17 at 11:30; Status UNV Magnesium Sulfate/ Dextrose 100 ml @ 100 mls/hr 1X ONCE IV Last administered on 07/24/17 14:21; Start 07/24/17 at 13:00; Stop 07/24/17 at 13:59; Status DC Atorvastatin Calcium (Lipitor) 40 mg QHS PO Last administered on 07/25/17 20: 46; Start 07/24/17 at 21:00 Insulin Aspart (NovoLOG) 0-7 UNITS Q6HRS SQ Last administered on 07/25/17 12: 21; Start 07/24/17 at 18:00 Cefepime HCl (Maxipime) 1 gm Q24H IVP ; Start 07/24/17 at 20:00; Status Cancel Cefepime HCl (Maxipime) 1 gm Q24H IVP Last administered on 07/25/17 20:40; Start 07/25/17 at 20:00 Acetaminophen (Tylenol) 650 mg PRN Q6HRS PRN PEG MILD PAIN / TEMP Last administered on 07/25/17 02:00; Start 07/25/17 at 01:15 Nitroglycerin/ Dextrose 250 ml @ 0 mls/hr CONT PRN IV SEE I/O RECORD Last administered on 07/25/17 11:23; Start 07/25/17 at 09:30 Famotidine (Pepcid) 20 mg QHS IVP Last administered on 07/25/17 20:46; Start 07/25/17 at 21:00 Aspirin (Aspirin) 300 mg DAILY AK Last administered on 07/25/17 10:39; Start 07/25/17 at 10:30 Metoprolol Tartrate (Lopressor) 25 mg BID PO Last administered on 07/25/17 20 :48; Start 07/25/17 at 11:30; Stop 07/26/17 at 10:22; Status DC Isosorbide Dinitrate (Isordil) 20 mg TID PO Last administered on 07/25/17 20: 47; Start 07/25/17 at 14:00; Stop 07/26/17 at 10:17; Status DC Isosorbide Mononitrate (Imdur) 60 mg DAILY PO ; Start 07/26/17 at 11:00 Metoprolol Succinate (Toprol Xl) 50 mg DAILY PO ; Start 07/26/17 at 11:00 Active Scripts Active Reported Pravastatin Sodium 20 Mg Tablet 20 Mg PO DAILY Pantoprazole Sodium 40 Mg Tablet.dr 40 Mg PO DAILY [place] 3 Fish Oil Softgel ([place]-3 Fatty Acids/Fish Oil) 1 Each Capsule.dr 1,000 Mg PO DAILY Toprol Xl (Metoprolol Succinate) 50 Mg Tab.er.24h 1 Tab PO DAILY Isosorbide Mononitrate Er (Isosorbide Mononitrate) 60 Mg Tab.er.24h 1 Tab PO DAILY Humalog (Insulin Lispro) 100 Unit/1 Ml Cartridge 5-8 Unit SQ TIDBFRMEAL Vitamin D3 (Cholecalciferol (Vitamin D3)) 1,000 Unit Tablet 1 Tab PO DAILY Aspir 81 (Aspirin) 81 Mg Tablet.dr 1 Tab PO DAILY Ascorbic Acid 250 Mg Tablet 250 Mg PO Hydrocodone-Apap 5-325 (Hydrocodone Bit/Acetaminophen) 1 Each Tablet 2 Tab PO PRN Q4HRS PRN Hydrocodone-Apap 5-325 (Hydrocodone Bit/Acetaminophen) 1 Each Tablet 1 Tab PO PRN Q4HRS PRN Amlodipine Besylate 5 Mg Tablet 5 Mg PO DAILY Vitals/I & O Vital Sign - Last 24 Hours 07/25/17 07/25/17 07/25/17 07/25/17 11:08 11:18 11:30 12:00 Temp 98.7 98.7 Pulse 99 82 B/P (MAP) 129/66 138/54 (82) Pulse Ox 99 97 O2 Delivery Ventilator Nasal Cannula Nasal Cannula O2 Flow Rate 4.0 6.0 07/25/17 07/25/17 07/25/17 07/25/17 12:00 13:00 14:00 15:00 Pulse 82 81 85 Resp 28 30 B/P (MAP) 129/57 (81) 123/53 (76) 122/58 (79) Pulse Ox 99 97 96 O2 Delivery Mechanical Ventilator Nasal Cannula Nasal Cannula Nasal Cannula O2 Flow Rate 4.0 4.0 4.0 4.0 07/25/17 07/25/17 07/25/17 07/25/17 16:00 16:00 16:04 17:00 Temp 98.8 98.8 Pulse 85 88 92 Resp 28 B/P (MAP) 126/56 (79) 126/56 123/49 (73) Pulse Ox 96 96 O2 Delivery Mechanical Ventilator Nasal Cannula Nasal Cannula O2 Flow Rate 4.0 4.0 4.0 07/25/17 07/25/17 07/25/17 07/25/17 18:00 19:00 20:00 20:00 Temp 98.4 98.4 Pulse 94 100 100 Resp 30 26 26 B/P (MAP) 127/58 (81) 114/56 (75) 135/57 (83) Pulse Ox 94 90 89 O2 Delivery Nasal Cannula Nasal Cannula Nasal Cannula Nasal Cannula O2 Flow Rate 4.0 4.0 4.0 4.0 07/25/17 07/25/17 07/25/17 07/25/17 20:40 20:47 20:48 21:00 Pulse 100 100 100 Resp 34 B/P (MAP) 135/57 135/57 118/60 (79) Pulse Ox 92 94 O2 Delivery BiPAP/CPAP BiPAP/CPAP 07/25/17 07/25/17 07/25/17 07/26/17 22:00 23:00 23:59 00:00 Pulse 93 86 Resp 32 31 B/P (MAP) 129/63 (85) 113/47 (69) Pulse Ox 97 98 O2 Delivery BiPAP/CPAP Nasal Cannula Nasal Cannula O2 Flow Rate 4.0 4.0 4.0 07/26/17 07/26/17 07/26/17 07/26/17 00:00 01:00 02:00 03:00 Temp 99.3 99.3 Pulse 93 93 80 74 Resp 32 32 29 30 B/P (MAP) 111/54 (73) 116/55 (75) 126/57 (80) 124/57 (79) Pulse Ox 97 97 95 97 O2 Delivery Nasal Cannula Nasal Cannula Nasal Cannula Nasal Cannula O2 Flow Rate 4.0 4.0 4.0 4.0 07/26/17 07/26/17 07/26/17 07/26/17 04:00 04:00 04:00 05:00 Pulse 77 76 Resp 30 26 B/P (MAP) 120/53 (75) 118/54 (75) Pulse Ox 97 97 O2 Delivery Nasal Cannula Nasal Cannula Nasal Cannula O2 Flow Rate 4.0 4.0 4.0 4.0 07/26/17 07/26/17 07/26/17 07/26/17 06:00 07:00 08:00 09:00 Temp 98.6 98.6 Pulse 77 77 73 77 Resp 23 22 20 22 B/P (MAP) 117/50 (72) 118/56 (76) 129/65 (86) 125/60 (81) Pulse Ox 97 96 96 97 O2 Delivery Nasal Cannula Nasal Cannula Nasal Cannula Nasal Cannula O2 Flow Rate 4.0 4.0 4.0 4.0 07/26/17 10:00 Pulse 74 B/P (MAP) 126/58 (80) Pulse Ox 97 O2 Delivery Nasal Cannula O2 Flow Rate 4.0 Intake and Output 07/26/17 07/26/17 07/27/17 15:00 23:00 07:00 Output Total 110 ml Balance -110 ml GIO SMITH MD Jul 26, 2017 11:05
[2017-07-26] MEDS: CHOLECALCIFEROL (VITAMIN D3) 1,000 UNIT TABLET PO SCH (11:25)
[2017-07-26] MEDS: LACTOBACILLUS RHAMNOSUS GG 1 CAPSULE. PO SCH ×2 (11:25→21:10)
[2017-07-26] MEDS: ISOSORBIDE MONONITRATE ER 30 MG TAB.ER.24H PO SCH (11:26)
[2017-07-26] MEDS: OMEGA-3 FATTY ACIDS/FISH OIL 1,000 MG CAPSULE. PO SCH (11:26)
[2017-07-26] MEDS: amLODIPine BESYLATE 5 MG TABLET PO SCH (11:26)
[2017-07-26] MEDS: ACETAMINOPHEN 500 MG TABLET PO PRN ×2 (11:27→21:56)
[2017-07-26] MEDS: METOPROLOL SUCC 24HR ER 50 MG TAB.ER.24H. PO SCH (11:27)
--- NOTE | 2017-07-26 13:54 | PDOC ---
PULMONARY PROGRESS NOTES Subjective PT EXTUBATED 07/25 USED BIPAP LAST YENNY FOR DECREASE SAT, ? SYDNEY Vitals Vital Signs Date Time Temp Pulse Resp B/P (MAP) Pulse Ox O2 Delivery O2 Flow Rate FiO2 07/26/17 11:27 78 125/64 07/26/17 10:00 97 Nasal Cannula 4.0 07/26/17 09:00 22 07/26/17 08:00 98.6 98.6 ROS: No Nausea, No Chest Pain, No Abdominal Pain, No Increase Cough General: Alert Lungs: Clear Cardiovascular: S1, S2 Abdomen: Soft Neuro Exam: Alert Extremities: No Edema Skin: Warm Labs Laboratory Tests Test 07/24/17 17:30 07/24/17 18:43 07/24/17 22:30 07/25/17 00:20 Heparin Anti-Xa Act, Unfractionated < 0.10 IU/mL (0.30-0.70) 0.21 IU/mL (0.30-0.70) Glucose (Fingerstick) 119 mg/dL (70-99) Troponin I Quantitative 6.385 ng/mL (0.000-0.055) Test 07/25/17 00:22 07/25/17 06:14 07/25/17 06:15 07/25/17 08:15 Glucose (Fingerstick) 124 mg/dL (70-99) 170 mg/dL (70-99) White Blood Count 9.0 x10^3/uL (4.0-11.0) Red Blood Count 2.65 x10^6/uL (3.50-5.40) Hemoglobin 8.5 g/dL (12.0-15.5) Hematocrit 25.3 % (36.0-47.0) Mean Corpuscular Volume 96 fL (79-100) Mean Corpuscular Hemoglobin 32 pg (25-35) Mean Corpuscular Hemoglobin Concent 34 g/dL (31-37) Red Cell Distribution Width 15.4 % (11.5-14.5) Platelet Count 133 x10^3/uL (140-400) Sodium Level 139 mmol/L (136-145) Potassium Level 3.2 mmol/L (3.5-5.1) Chloride Level 107 mmol/L (98-107) Carbon Dioxide Level 19 mmol/L (21-32) Anion Gap 13 (6-14) Blood Urea Nitrogen 23 mg/dL (7-20) Creatinine 2.1 mg/dL (0.6-1.0) Estimated GFR (Cockcroft-Gault) 22.7 Glucose Level 178 mg/dL (70-99) Calcium Level 7.9 mg/dL (8.5-10.1) Phosphorus Level 3.4 mg/dL (2.6-4.7) Magnesium Level 2.1 mg/dL (1.8-2.4) Heparin Anti-Xa Act, Unfractionated > 1.10 IU/mL (0.30-0.70) Test 07/25/17 09:20 07/25/17 12:19 07/25/17 14:00 07/25/17 17:58 O2 Saturation 96 % (92-99) Arterial Blood pH 7.38 (7.35-7.45) Arterial Blood pCO2 at Patient Temp 30 mmHg (35-46) Arterial Blood pO2 at Patient Temp 89 mmHg (65-108) Arterial Blood HCO3 17 mmol/L (21-28) Arterial Blood Base Excess -7 mmol/L (-3-3) FiO2 40 Glucose (Fingerstick) 205 mg/dL (70-99) 130 mg/dL (70-99) Heparin Anti-Xa Act, Unfractionated 0.67 IU/mL (0.30-0.70) Test 07/25/17 20:35 07/26/17 00:16 07/26/17 06:00 07/26/17 06:08 Heparin Anti-Xa Act, Unfractionated < 0.10 IU/mL (0.30-0.70) 0.17 IU/mL (0.30-0.70) Glucose (Fingerstick) 146 mg/dL (70-99) 148 mg/dL (70-99) Sodium Level 142 mmol/L (136-145) Potassium Level 3.5 mmol/L (3.5-5.1) Chloride Level 110 mmol/L (98-107) Carbon Dioxide Level 20 mmol/L (21-32) Anion Gap 12 (6-14) Blood Urea Nitrogen 23 mg/dL (7-20) Creatinine 2.0 mg/dL (0.6-1.0) Estimated GFR (Cockcroft-Gault) 24.0 Glucose Level 151 mg/dL (70-99) Calcium Level 8.1 mg/dL (8.5-10.1) Magnesium Level 2.3 mg/dL (1.8-2.4) Test 07/26/17 11:34 07/26/17 12:15 Glucose (Fingerstick) 179 mg/dL (70-99) Heparin Anti-Xa Act, Unfractionated 0.73 IU/mL (0.30-0.70) Laboratory Tests Test 07/25/17 14:00 07/25/17 17:58 07/25/17 20:35 07/26/17 00:16 Heparin Anti-Xa Act, Unfractionated 0.67 IU/mL (0.30-0.70) < 0.10 IU/mL (0.30-0.70) Glucose (Fingerstick) 130 mg/dL (70-99) 146 mg/dL (70-99) Test 07/26/17 06:00 07/26/17 06:08 07/26/17 11:34 07/26/17 12:15 Heparin Anti-Xa Act, Unfractionated 0.17 IU/mL (0.30-0.70) 0.73 IU/mL (0.30-0.70) Sodium Level 142 mmol/L (136-145) Potassium Level 3.5 mmol/L (3.5-5.1) Chloride Level 110 mmol/L (98-107) Carbon Dioxide Level 20 mmol/L (21-32) Anion Gap 12 (6-14) Blood Urea Nitrogen 23 mg/dL (7-20) Creatinine 2.0 mg/dL (0.6-1.0) Estimated GFR (Cockcroft-Gault) 24.0 Glucose Level 151 mg/dL (70-99) Calcium Level 8.1 mg/dL (8.5-10.1) Magnesium Level 2.3 mg/dL (1.8-2.4) Glucose (Fingerstick) 148 mg/dL (70-99) 179 mg/dL (70-99) Medications Active Scripts Medications Dose Route/Sig Max Daily Dose Days Date Category Pravastatin Sodium 20 Mg Tablet 20 Mg PO DAILY 07/24/17 Reported Pantoprazole Sodium 40 Mg Tablet.dr 40 Mg PO DAILY 07/24/17 Reported [place] 3 Fish Oil Softgel ([place]-3 Fatty Acids/Fish Oil) 1 Each Capsule.dr 1,000 Mg PO DAILY 07/24/17 Reported Toprol Xl (Metoprolol Succinate) 50 Mg Tab.er.24h 1 Tab PO DAILY 07/24/17 Reported Isosorbide Mononitrate Er (Isosorbide Mononitrate) 60 Mg Tab.er.24h 1 Tab PO DAILY 07/24/17 Reported Humalog (Insulin Lispro) 100 Unit/1 Ml Cartridge 5-8 Unit SQ TIDBFRMEAL 07/24/17 Reported Vitamin D3 (Cholecalciferol (Vitamin D3)) 1,000 Unit Tablet 1 Tab PO DAILY 07/24/17 Reported Aspir 81 (Aspirin) 81 Mg Tablet. 1 Tab PO DAILY 07/24/17 Reported Ascorbic Acid 250 Mg Tablet 250 Mg PO 07/24/17 Reported Hydrocodone-Apap 5-325 (Hydrocodone Bit/Acetaminophen) 1 Each Tablet 2 Tab PO PRN Q4HRS PRN 07/24/17 Reported Hydrocodone-Apap 5-325 (Hydrocodone Bit/Acetaminophen) 1 Each Tablet 1 Tab PO PRN Q4HRS PRN 07/24/17 Reported Amlodipine Besylate 5 Mg Tablet 5 Mg PO DAILY 07/24/17 Reported Comments 1. Bibasilar heterogenous airspace opacities may relate to atelectasis, although edema or an infectious process cannot be excluded. 2. Possible small bilateral pleural effusions. 3. Interval removal of endotracheal tube and enteric tube. Stable right PICC. Impression . 1. Acute respiratory failure, multifactorial. 2. Acute diastolic, systolic heart failure. 3. Non-ST segment elevation myocardial infarction. 4. Recent right carotid endarterectomy performed on July 22. 5. Possible sepsis. 6. Fever. 7. Leukocytosis. 8. Coronary artery disease requiring coronary artery bypass grafting. 9. Anemia. 10. Chronic kidney disease. 11. Possible SYDNEY Plan . BIPAP for now will need outpt sleep study SPOKE WITH DAUGHTER 1. Continue broad coverage antibiotics. 2. Consult Cardiology, already performed. 3. Consult Nephrology already performed. 4. Titrate FiO2. 5. Continue heparin. ZAFAR LANIER MD Jul 26, 2017 13:54
--- NOTE | 2017-07-26 15:11 | PDOC ---
SUBJECTIVE ROS CKD III/ IV Doign better today CVS: no Orthopnea, no CP RESP: no SOB, no OCAMPO GI: no Nausea, no Vomiting : no Dysuria, no Urgency OBJECTIVE Vital Signs Vital Signs Date Time Temp Pulse Resp B/P (MAP) Pulse Ox O2 Delivery O2 Flow Rate FiO2 07/26/17 15:00 67 22 93/40 (57) 97 Nasal Cannula 4.0 07/26/17 12:00 98.6 98.6 I & 0 Intake and Output 07/27/17 06:59 Intake Total 50 ml Output Total 410 ml Balance -360 ml Intake Oral 50 ml Output Urine Total 410 ml PHYSICAL EXAM Physical Exam GEN: Awake, Oriented x 3, In no distress (extubated) EYES: Vision Unchanged, Conjunctiva Normal EN: No EN Drainage, Mucous Membranes moist NECK: no JVD, + JVP, Supple, no Thyromegaly CVS: S1S2, + Murmur, No Gallop, No Rub,no Edema RESP: ? rare basal Rales, no Rhonchi,no Acc. Muscle Use GI: BS + ve, NO Bruit, Non Tender, Non Distended : no CVA tenderness, no Suprapubic Tenderness DIAGNOSIS/ASSESSMENT Assessment & Plan CKD IV - stabel from [facility]. ? May improve with VHDz ? repair. Current fluid and E-lyte status does not necessitate emergent need for dialysis. Will re- evaluate for dialysis in the am HypoKalemia - K replacemnet protocol ongoing ANEMIA; Aranesp as ordered, Transfuse as needed CHF - -ve fluid balance ongoing - watch trend HTN: Current BP meds as reviewed. defer to cardiology to optimize from NSTEMi standpoint Discussed Plan of Care with family at bedside COMMENT/RELEVANT DATA Meds Current Medications Medications (Trade) Dose Ordered Sig/Beryl Start Time Stop Time Status Last Admin Dose Admin Acetaminophen (Tylenol) 500 mg PRN Q6HRS PRN 07/26/17 11:00 07/26/17 11:27 500 MG Acetaminophen/ Hydrocodone Bitart (Lortab 5/325) 2 tab PRN Q4HRS PRN 07/24/17 11:30 Amlodipine Besylate (Norvasc) 5 mg DAILY 07/25/17 09:00 07/26/17 11:26 5 MG Aspirin (Aspirin) 300 mg DAILY 07/25/17 10:30 07/25/17 10:39 300 MG Aspirin (Ecotrin) 81 mg DAILY 07/25/17 09:00 Cancel Atorvastatin Calcium (Lipitor) 40 mg QHS 07/24/17 21:00 07/25/17 20:46 40 MG Cefepime HCl (Maxipime) 1 gm Q24H 07/25/17 20:00 07/25/17 20:40 1 GM Cefepime HCl 1 gm/ Dextrose 50 ml @ 100 mls/hr 1X ONCE 07/23/17 20:00 07/23/17 20:29 DC 07/23/17 20:10 100 MLS/HR Dextrose (Dextrose 50%-Water Syringe) 12.5 gm PRN Q15MIN PRN 07/24/17 11:30 UNV Etomidate (Amidate) 20 mg STK-MED ONCE 07/24/17 01:55 07/24/17 01:56 DC Famotidine (Pepcid) 20 mg QHS 07/25/17 21:00 07/25/17 20:46 20 MG Fish Oil (Fish Oil) 1,000 mg DAILY 07/25/17 09:00 07/26/17 11:26 1,000 MG Heparin Sodium (Porcine) (Heparin Sodium) 1,550 unit PRN Q6HRS PRN 07/24/17 06:45 07/26/17 00:11 1,550 UNIT Heparin Sodium/ Dextrose 500 ml @ 0 mls/hr CONT PRN 07/24/17 06:45 07/24/17 07:57 14.8 MLS/HR Info (Anti-Coagulation Monitoring By Pharmacy) 1 each PRN DAILY PRN 07/24/17 07:00 07/26/17 10:19 1 EACH Insulin Aspart (NovoLOG) 0-7 UNITS Q6HRS 07/24/17 18:00 07/25/17 12:21 2 UNITS Isosorbide Dinitrate (Isordil) 20 mg TID 07/25/17 14:00 07/26/17 10:17 DC 07/25/17 20:47 20 MG Isosorbide Mononitrate (Imdur) 60 mg DAILY 07/26/17 11:00 07/26/17 11:26 60 MG Lactobacillus Rhamnosus (Culturelle) 1 cap BID 07/24/17 09:00 07/26/17 11:25 1 CAP Magnesium Sulfate/ Dextrose 100 ml @ 100 mls/hr 1X ONCE 07/24/17 13:00 07/24/17 13:59 DC 07/24/17 14:21 100 MLS/HR Metoprolol Succinate (Toprol Xl) 50 mg DAILY 07/26/17 11:00 07/26/17 11:27 50 MG Metoprolol Tartrate (Lopressor) 25 mg BID 07/25/17 11:30 07/26/17 10:22 DC 07/25/17 20:48 25 MG Nitroglycerin (Nitrostat) 0.4 mg PRN Q5MIN PRN 07/24/17 11:30 Nitroglycerin/ Dextrose 250 ml @ 0 mls/hr CONT PRN 07/25/17 09:30 07/25/17 11:23 1.5 MLS/HR Pantoprazole Sodium (Protonix) 40 mg DAILYAC 07/25/17 07:30 07/25/17 10:12 DC Potassium Chloride 100 ml @ 100 mls/hr Q1H 07/24/17 11:00 07/24/17 12:59 DC 07/24/17 12:57 100 MLS/HR Propofol 100 ml @ 0 mls/hr CONT PRN 07/23/17 22:15 07/25/17 04:20 0.15 MLS/HR Rocuronium [place] (Zemuron) 50 mg 1X ONCE 07/23/17 19:15 07/23/17 19:16 DC 07/23/17 19:15 50 MG Sodium Chloride 500 ml @ 500 mls/hr 1X ONCE 07/24/17 01:30 07/24/17 02:29 DC 07/24/17 01:30 500 MLS/HR Succinylcholine Chloride (Anectine) 200 mg STK-MED ONCE 07/24/17 01:56 07/24/17 01:57 DC Vancomycin HCl 1 each 1X ONCE 07/27/17 20:30 07/27/17 20:31 Vancomycin HCl (Vanco Per Pharmacy) 1 each PRN DAILY PRN 07/23/17 21:30 07/26/17 10:09 1 EACH Vancomycin HCl 1.25 gm/Sodium Chloride 250 ml @ 166.667 mls/hr 1X ONCE 07/23/17 19:45 10/26/17 21:14 UNV Vancomycin HCl 1.75 gm/Dextrose 500 ml @ 250 mls/hr 1X ONCE 07/23/17 20:00 07/23/17 21:59 DC 07/23/17 21:12 250 MLS/HR Vancomycin HCl 1 gm/Dextrose 250 ml @ 250 mls/hr Q48H 07/25/17 21:00 07/25/17 20:46 250 MLS/HR Vitamin D (Vitamin D3) 1,000 unit DAILY 07/25/17 09:00 07/26/17 11:25 1,000 UNIT Lab Laboratory Tests Test 07/25/17 17:58 07/25/17 20:35 07/26/17 00:16 07/26/17 06:00 Glucose (Fingerstick) 130 mg/dL (70-99) 146 mg/dL (70-99) Heparin Anti-Xa Act, Unfractionated < 0.10 IU/mL (0.30-0.70) 0.17 IU/mL (0.30-0.70) Sodium Level 142 mmol/L (136-145) Potassium Level 3.5 mmol/L (3.5-5.1) Chloride Level 110 mmol/L (98-107) Carbon Dioxide Level 20 mmol/L (21-32) Anion Gap 12 (6-14) Blood Urea Nitrogen 23 mg/dL (7-20) Creatinine 2.0 mg/dL (0.6-1.0) Estimated GFR (Cockcroft-Gault) 24.0 Glucose Level 151 mg/dL (70-99) Calcium Level 8.1 mg/dL (8.5-10.1) Magnesium Level 2.3 mg/dL (1.8-2.4) Test 07/26/17 06:08 07/26/17 11:34 07/26/17 12:15 Glucose (Fingerstick) 148 mg/dL (70-99) 179 mg/dL (70-99) Heparin Anti-Xa Act, Unfractionated 0.73 IU/mL (0.30-0.70) JUVENAL LEAVITT MD Jul 26, 2017 15:10
[2017-07-26] MEDS: CEFEPIME HCL IV Push 1 GM VIAL. IVP SCH (20:07)
[2017-07-26] MEDS: FAMOTIDINE 20 MG/2 ML VIAL IVP SCH (21:10)
[2017-07-26] MEDS: ATORVASTATIN CALCIUM 40 MG TABLET. PO SCH (21:10)
[2017-07-27] VITALS (17 sets, daily range): BP systolic 11–134; BP diastolic 39–63
[2017-07-27] MEDS: INSULIN ASPART 300 UNITS/3 ML INSULN.PEN SQ SCH ×5 (06:00→20:50)
[2017-07-27 06:29] LABS: BASO % 1 % (0-3); EOS % 7 % (0-3); HEMATOCRIT 21.8 % (36.0-47.0); HEMOGLOBIN 7.2 g/dL (12.0-15.5); LYMPH # 1.6 x10^3/uL (1.0-4.8); LYMPH % 24 % (24-48); MEAN CORPUSCULAR HEMOGLOBIN 32 pg (25-35); MEAN CORPUSCULAR HGB CONC 33 g/dL (31-37); MEAN CORPUSCULAR VOLUME 95 fL (79-100); MONO % 8 % (0-9); NEUT % 61 % (31-73); PLATELET COUNT 131 x10^3/uL (140-400); RED BLOOD COUNT 2.29 x10^6/uL (3.50-5.40); RED CELL DISTRIBUTION WIDTH 14.9 % (11.5-14.5); WHITE BLOOD COUNT 6.6 x10^3/uL (4.0-11.0)
--- NOTE | 2017-07-27 07:57 | PDOC ---
PROGRESS NOTES Chief Complaint Chief Complaint ASSESSMENT AND PLAN: 1. Acute respir failure sec to flash pulm edema extubated 07/25 (intub approx 2 days) 2. NSTEMI: CABG ideal but poor surgical candidate 3. CAD: with occluded stents (placed 2 yrs ago). 4. Recent Carotid endarcterectomy, L with 70% blockage ([facility] hosp) 5. CKD: baseline 6. Hyperkalemia: reversed 7. DM2: controlled 8. Leukocytosis: reactive. 9. Anemia: suspect chronic dz, 10. HEadaches 11. Atelectasis and small bilateral pleural effusions 12. 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 Extubated 07/25 Hgb lowest today at 7.2 from baseline 10 on admit HAs been on heparin gtt since admit day FOBT ordered but not stooling yet COmplains of neck incision pain from her Carotid endarcterectomy very recently at [facility] - I did inspect her wound, looks ok, some echymoses Also complains of sore throat Neville out, voiding well HAs very good family support when goes home PLAn: Cepacol prn HH melissa Bowel regimen today Heparin gtt per cards (precipitous drop in hgb) Dc IV vanc - no pneumonia on CXR - ALL fluid overload on admit dw THERAPIST SPEECH and dtrs MAy be CVC status today Vitals Vitals Vital Signs Date Time Temp Pulse Resp B/P (MAP) Pulse Ox O2 Delivery O2 Flow Rate FiO2 07/27/17 06:00 74 30 118/56 (76) 98 Nasal Cannula 4.0 07/27/17 04:00 98.0 98.0 Physical Exam General: Alert, Cooperative, Other (sedated) Heart: Regular rate, Other (tachy) Lungs: Clear Abdomen: Soft Extremities: No edema Skin: No rashes Labs LABS Laboratory Tests Test 07/26/17 11:34 07/26/17 12:15 07/26/17 17:31 07/26/17 18:30 Glucose (Fingerstick) 179 mg/dL (70-99) 191 mg/dL (70-99) Heparin Anti-Xa Act, Unfractionated 0.73 IU/mL (0.30-0.70) 0.55 IU/mL (0.30-0.70) Test 07/27/17 00:08 07/27/17 00:20 07/27/17 06:00 07/27/17 06:11 Glucose (Fingerstick) 147 mg/dL (70-99) 130 mg/dL (70-99) Heparin Anti-Xa Act, Unfractionated > 1.10 IU/mL (0.30-0.70) 0.46 IU/mL (0.30-0.70) White Blood Count 6.6 x10^3/uL (4.0-11.0) Red Blood Count 2.29 x10^6/uL (3.50-5.40) Hemoglobin 7.2 g/dL (12.0-15.5) Hematocrit 21.8 % (36.0-47.0) Mean Corpuscular Volume 95 fL (79-100) Mean Corpuscular Hemoglobin 32 pg (25-35) Mean Corpuscular Hemoglobin Concent 33 g/dL (31-37) Red Cell Distribution Width 14.9 % (11.5-14.5) Platelet Count 131 x10^3/uL (140-400) Neutrophils (%) (Auto) 61 % (31-73) Lymphocytes (%) (Auto) 24 % (24-48) Monocytes (%) (Auto) 8 % (0-9) Eosinophils (%) (Auto) 7 % (0-3) Basophils (%) (Auto) 1 % (0-3) Neutrophils # (Auto) 4.0 x10^3uL (1.8-7.7) Lymphocytes # (Auto) 1.6 x10^3/uL (1.0-4.8) Monocytes # (Auto) 0.5 x10^3/uL (0.0-1.1) Eosinophils # (Auto) 0.4 x10^3/uL (0.0-0.7) Basophils # (Auto) 0.0 x10^3/uL (0.0-0.2) Review of Systems Review of Systems sore throat, incisional [pain neck, no cp, no soa, no abd pain Assessment and Plan Assessmemt and Plan Problems Medical Problems: (1) Acute renal failure Status: Acute (2) HCAP (healthcare-associated pneumonia) Status: Acute (3) NSTEMI (non-ST elevated myocardial infarction) Status: Acute Problems: Comment Review of Relevant I have reviewed the following items ion (where applicable) has been applied. Labs Laboratory Tests Test 07/25/17 08:15 07/25/17 09:20 07/25/17 12:19 07/25/17 14:00 Heparin Anti-Xa Act, Unfractionated > 1.10 IU/mL (0.30-0.70) 0.67 IU/mL (0.30-0.70) O2 Saturation 96 % (92-99) Arterial Blood pH 7.38 (7.35-7.45) Arterial Blood pCO2 at Patient Temp 30 mmHg (35-46) Arterial Blood pO2 at Patient Temp 89 mmHg (65-108) Arterial Blood HCO3 17 mmol/L (21-28) Arterial Blood Base Excess -7 mmol/L (-3-3) FiO2 40 Glucose (Fingerstick) 205 mg/dL (70-99) Test 07/25/17 17:58 07/25/17 20:35 07/26/17 00:16 07/26/17 06:00 Glucose (Fingerstick) 130 mg/dL (70-99) 146 mg/dL (70-99) Heparin Anti-Xa Act, Unfractionated < 0.10 IU/mL (0.30-0.70) 0.17 IU/mL (0.30-0.70) Sodium Level 142 mmol/L (136-145) Potassium Level 3.5 mmol/L (3.5-5.1) Chloride Level 110 mmol/L (98-107) Carbon Dioxide Level 20 mmol/L (21-32) Anion Gap 12 (6-14) Blood Urea Nitrogen 23 mg/dL (7-20) Creatinine 2.0 mg/dL (0.6-1.0) Estimated GFR (Cockcroft-Gault) 24.0 Glucose Level 151 mg/dL (70-99) Calcium Level 8.1 mg/dL (8.5-10.1) Magnesium Level 2.3 mg/dL (1.8-2.4) Test 07/26/17 06:08 07/26/17 11:34 07/26/17 12:15 07/26/17 17:31 Glucose (Fingerstick) 148 mg/dL (70-99) 179 mg/dL (70-99) 191 mg/dL (70-99) Heparin Anti-Xa Act, Unfractionated 0.73 IU/mL (0.30-0.70) Test 07/26/17 18:30 07/27/17 00:08 07/27/17 00:20 07/27/17 06:00 Heparin Anti-Xa Act, Unfractionated 0.55 IU/mL (0.30-0.70) > 1.10 IU/mL (0.30-0.70) Glucose (Fingerstick) 147 mg/dL (70-99) 130 mg/dL (70-99) White Blood Count 6.6 x10^3/uL (4.0-11.0) Red Blood Count 2.29 x10^6/uL (3.50-5.40) Hemoglobin 7.2 g/dL (12.0-15.5) Hematocrit 21.8 % (36.0-47.0) Mean Corpuscular Volume 95 fL (79-100) Mean Corpuscular Hemoglobin 32 pg (25-35) Mean Corpuscular Hemoglobin Concent 33 g/dL (31-37) Red Cell Distribution Width 14.9 % (11.5-14.5) Platelet Count 131 x10^3/uL (140-400) Neutrophils (%) (Auto) 61 % (31-73) Lymphocytes (%) (Auto) 24 % (24-48) Monocytes (%) (Auto) 8 % (0-9) Eosinophils (%) (Auto) 7 % (0-3) Basophils (%) (Auto) 1 % (0-3) Neutrophils # (Auto) 4.0 x10^3uL (1.8-7.7) Lymphocytes # (Auto) 1.6 x10^3/uL (1.0-4.8) Monocytes # (Auto) 0.5 x10^3/uL (0.0-1.1) Eosinophils # (Auto) 0.4 x10^3/uL (0.0-0.7) Basophils # (Auto) 0.0 x10^3/uL (0.0-0.2) Test 07/27/17 06:11 Heparin Anti-Xa Act, Unfractionated 0.46 IU/mL (0.30-0.70) Laboratory Tests Test 07/26/17 11:34 07/26/17 12:15 07/26/17 17:31 07/26/17 18:30 Glucose (Fingerstick) 179 mg/dL (70-99) 191 mg/dL (70-99) Heparin Anti-Xa Act, Unfractionated 0.73 IU/mL (0.30-0.70) 0.55 IU/mL (0.30-0.70) Test 07/27/17 00:08 07/27/17 00:20 07/27/17 06:00 07/27/17 06:11 Glucose (Fingerstick) 147 mg/dL (70-99) 130 mg/dL (70-99) Heparin Anti-Xa Act, Unfractionated > 1.10 IU/mL (0.30-0.70) 0.46 IU/mL (0.30-0.70) White Blood Count 6.6 x10^3/uL (4.0-11.0) Red Blood Count 2.29 x10^6/uL (3.50-5.40) Hemoglobin 7.2 g/dL (12.0-15.5) Hematocrit 21.8 % (36.0-47.0) Mean Corpuscular Volume 95 fL (79-100) Mean Corpuscular Hemoglobin 32 pg (25-35) Mean Corpuscular Hemoglobin Concent 33 g/dL (31-37) Red Cell Distribution Width 14.9 % (11.5-14.5) Platelet Count 131 x10^3/uL (140-400) Neutrophils (%) (Auto) 61 % (31-73) Lymphocytes (%) (Auto) 24 % (24-48) Monocytes (%) (Auto) 8 % (0-9) Eosinophils (%) (Auto) 7 % (0-3) Basophils (%) (Auto) 1 % (0-3) Neutrophils # (Auto) 4.0 x10^3uL (1.8-7.7) Lymphocytes # (Auto) 1.6 x10^3/uL (1.0-4.8) Monocytes # (Auto) 0.5 x10^3/uL (0.0-1.1) Eosinophils # (Auto) 0.4 x10^3/uL (0.0-0.7) Basophils # (Auto) 0.0 x10^3/uL (0.0-0.2) Microbiology 07/23/17 Blood Culture - Preliminary, Resulted NO GROWTH AFTER 3 DAYS Medications Current Medications Sodium Chloride 500 ml @ 500 mls/hr 1X ONCE IV Last administered on 20:16; Start 07/23/17 at 19:15; Stop 07/23/17 at 20:14; Status DC Rocuronium [place] (Zemuron) 50 mg 1X ONCE IV Last administered on 07/23/17 19:15; Start 07/23/17 at 19:15; Stop 07/23/17 at 19:16; Status DC Propofol 50 ml @ As Directed STK-MED ONCE IV ; Start 07/23/17 at 19:12; Stop 07/23/17 at 19:13; Status DC Propofol 50 ml @ 0 mls/hr 1X ONCE IV Last administered on 07/23/17 19:30; Start 07/23/17 at 19:30; Stop 07/23/17 at 19:31; Status DC Cefepime HCl 1 gm/ Dextrose 50 ml @ 100 mls/hr Q24H IV Last administered on 20:21; Start 07/24/17 at 20:00; Stop 07/24/17 at 23:00; Status DC Vancomycin HCl 1.25 gm/Sodium Chloride 250 ml @ 166.667 mls/hr 1X ONCE IV ; Start 07/23/17 at 19:45; Stop 07/23/17 at 21:14; Status UNV Cefepime HCl 1 gm/ Dextrose 50 ml @ 100 mls/hr 1X ONCE IV Last administered on 07/23/17 20:10; Start 07/23/17 at 20:00; Stop 07/23/17 at 20:29; Status DC Aspirin (Aspirin) 300 mg 1X ONCE [place] Last administered on 07/23/17 20:09; Start 07/23/17 at 20:00; Stop 07/23/17 at 20:01; Status DC Vancomycin HCl 1.75 gm/Dextrose 500 ml @ 250 mls/hr 1X ONCE IV Last administered on 07/23/17 21:12; Start 07/23/17 at 20:00; Stop 07/23/17 at 21 :59; Status DC Sodium Chloride 1,000 ml @ 150 mls/hr Q6H40M IV Last administered on 10:00; Start 07/23/17 at 20:01; Stop 07/24/17 at 15:34; Status DC Sodium Chloride 1,000 ml @ 1,000 mls/hr 1X ONCE IV Last administered on 07/23 20:30; Start 07/23/17 at 20:30; Stop 07/23/17 at 21:29; Status DC Vancomycin HCl (Vanco Per Pharmacy) 1 each PRN DAILY PRN MC SEE COMMENTS Last administered on 07/26/17 10:09; Start 07/23/17 at 21:30; Stop 07/27/17 at 07 :32; Status DC Lactobacillus Rhamnosus (Culturelle) 1 cap BID PO Last administered on 21:10; Start 07/24/17 at 09:00 Sodium Chloride 500 ml @ 500 mls/hr 1X ONCE IV Last administered on 22:30; Start 07/23/17 at 22:30; Stop 07/23/17 at 23:29; Status DC Propofol 100 ml @ 0 mls/hr CONT PRN IV SEE I/O RECORD Last administered on 04:20; Start 07/23/17 at 22:15; Stop 07/27/17 at 07:31; Status DC Sodium Chloride 500 ml @ 500 mls/hr 1X ONCE IV Last administered on 01:30; Start 07/24/17 at 01:30; Stop 07/24/17 at 02:29; Status DC Etomidate (Amidate) 20 mg STK-MED ONCE IV ; Start 07/24/17 at 01:55; Stop at 01:56; Status DC Succinylcholine Chloride (Anectine) 200 mg STK-MED ONCE .ROUTE ; Start at 01:56; Stop 07/24/17 at 01:57; Status DC Vancomycin HCl 1 gm/Dextrose 250 ml @ 250 mls/hr Q48H IV Last administered on 07/25/17 20:46; Start 07/25/17 at 21:00; Stop 07/27/17 at 07:32; Status DC Vancomycin HCl 1 each 1X ONCE MC ; Start 07/27/17 at 20:30; Stop 07/27/17 at 20:30; Status DC Heparin Sodium (Porcine) (Heparin Sodium) 3,700 unit 1X ONCE IV Last administered on 07/24/17 07:56; Start 07/24/17 at 07:00; Stop 07/24/17 at 07 :01; Status DC Heparin Sodium/ Dextrose 500 ml @ 0 mls/hr CONT PRN IV SEE I/O RECORD Last administered on 07/24/17 07:57; Start 07/24/17 at 06:45 Heparin Sodium (Porcine) (Heparin Sodium) 1,550 unit PRN Q6HRS PRN IV FOR UFH LEVEL LESS THAN 0.2 Last administered on 07/26/17 00:11; Start 07/24/17 at 06 :45 Info (Anti-Coagulation Monitoring By Pharmacy) 1 each PRN DAILY PRN MC SEE COMMENTS Last administered on 07/26/17 10:19; Start 07/24/17 at 07:00 Potassium Chloride 100 ml @ 100 mls/hr Q1H IV Last administered on 07/24/17 12:57; Start 07/24/17 at 11:00; Stop 07/24/17 at 12:59; Status DC Insulin Aspart (NovoLOG) 0-5 UNITS TIDWMEALS SQ ; Start 07/24/17 at 12:00; Stop 07/24/17 at 12:00; Status DC Dextrose (Dextrose 50%-Water Syringe) 12.5 gm PRN Q15MIN PRN IV SEE COMMENTS; Start 07/24/17 at 10:45 Insulin Aspart (NovoLOG) 0-5 UNITS Q6HRS SQ ; Start 07/24/17 at 12:00; Stop at 12:00; Status DC Amlodipine Besylate (Norvasc) 5 mg DAILY PO Last administered on 07/26/17 11: 26; Start 07/25/17 at 09:00 Aspirin (Ecotrin) 81 mg DAILY PO ; Start 07/25/17 at 09:00; Status Cancel Vitamin D (Vitamin D3) 1,000 unit DAILY PO Last administered on 07/26/17 11: 25; Start 07/25/17 at 09:00 Acetaminophen/ Hydrocodone Bitart (Lortab 5/325) 1 tab PRN Q4HRS PRN PO PAIN; Start 07/24/17 at 11:30 Acetaminophen/ Hydrocodone Bitart (Lortab 5/325) 2 tab PRN Q4HRS PRN PO PAIN; Start 07/24/17 at 11:30 Nitroglycerin (Nitrostat) 0.4 mg PRN Q5MIN PRN SL CHEST PAIN; Start 07/24/17 at 11:30 Pantoprazole Sodium (Protonix) 40 mg DAILYAC PO ; Start 07/25/17 at 07:30; Stop 07/25/17 at 10:12; Status DC Isosorbide Mononitrate (Imdur) 60 mg DAILY PO ; Start 07/25/17 at 09:00; Stop 07/25/17 at 11:09; Status DC Metoprolol Succinate (Toprol Xl) 50 mg DAILY PO ; Start 07/25/17 at 09:00; Stop 07/25/17 at 11:09; Status DC Fish Oil (Fish Oil) 1,000 mg DAILY PO Last administered on 07/26/17 11:26; Start 07/25/17 at 09:00 Atorvastatin Calcium (Lipitor) 5 mg QHS PO ; Start 07/24/17 at 21:00; Status Cancel Insulin Aspart (NovoLOG) 0-7 UNITS TIDWMEALS SQ ; Start 07/24/17 at 12:00; Stop 07/24/17 at 17:34; Status DC Dextrose (Dextrose 50%-Water Syringe) 12.5 gm PRN Q15MIN PRN IV SEE COMMENTS; Start 07/24/17 at 11:30; Status UNV Magnesium Sulfate/ Dextrose 100 ml @ 100 mls/hr 1X ONCE IV Last administered on 07/24/17 14:21; Start 07/24/17 at 13:00; Stop 07/24/17 at 13:59; Status DC Atorvastatin Calcium (Lipitor) 40 mg QHS PO Last administered on 07/26/17 21: 10; Start 07/24/17 at 21:00 Insulin Aspart (NovoLOG) 0-7 UNITS Q6HRS SQ Last administered on 07/25/17 12: 21; Start 07/24/17 at 18:00 Cefepime HCl (Maxipime) 1 gm Q24H IVP ; Start 07/24/17 at 20:00; Status Cancel Cefepime HCl (Maxipime) 1 gm Q24H IVP Last administered on 07/26/17 20:07; Start 07/25/17 at 20:00 Acetaminophen (Tylenol) 650 mg PRN Q6HRS PRN PEG MILD PAIN / TEMP Last administered on 07/25/17 02:00; Start 07/25/17 at 01:15 Nitroglycerin/ Dextrose 250 ml @ 0 mls/hr CONT PRN IV SEE I/O RECORD Last administered on 07/25/17 11:23; Start 07/25/17 at 09:30 Famotidine (Pepcid) 20 mg QHS IVP Last administered on 07/26/17 21:10; Start 07/25/17 at 21:00 Aspirin (Aspirin) 300 mg DAILY [place] Last administered on 07/25/17 10:39; Start 07/25/17 at 10:30 Metoprolol Tartrate (Lopressor) 25 mg BID PO Last administered on 07/25/17 20 :48; Start 07/25/17 at 11:30; Stop 07/26/17 at 10:22; Status DC Isosorbide Dinitrate (Isordil) 20 mg TID PO Last administered on 07/25/17 20: 47; Start 07/25/17 at 14:00; Stop 07/26/17 at 10:17; Status DC Isosorbide Mononitrate (Imdur) 60 mg DAILY PO Last administered on 07/26/17 11:26; Start 07/26/17 at 11:00 Metoprolol Succinate (Toprol Xl) 50 mg DAILY PO Last administered on 11:27; Start 07/26/17 at 11:00 Acetaminophen (Tylenol) 500 mg PRN Q6HRS PRN PO MILD PAIN / TEMP Last administered on 07/26/17 21:56; Start 07/26/17 at 11:00 Throat Lozenges (Cepacol Sore Throat Lozenge) 1 rosa PRN Q2HRS PRN PO SORE THROAT; Start 07/27/17 at 07:45 Active Scripts Active Reported Pravastatin Sodium 20 Mg Tablet 20 Mg PO DAILY Pantoprazole Sodium 40 Mg Tablet.dr 40 Mg PO DAILY [place] 3 Fish Oil Softgel ([place]-3 Fatty Acids/Fish Oil) 1 Each Capsule.dr 1,000 Mg PO DAILY Toprol Xl (Metoprolol Succinate) 50 Mg Tab.er.24h 1 Tab PO DAILY Isosorbide Mononitrate Er (Isosorbide Mononitrate) 60 Mg Tab.er.24h 1 Tab PO DAILY Humalog (Insulin Lispro) 100 Unit/1 Ml Cartridge 5-8 Unit SQ TIDBFRMEAL Vitamin D3 (Cholecalciferol (Vitamin D3)) 1,000 Unit Tablet 1 Tab PO DAILY Aspir 81 (Aspirin) 81 Mg Tablet.dr 1 Tab PO DAILY Ascorbic Acid 250 Mg Tablet 250 Mg PO Hydrocodone-Apap 5-325 (Hydrocodone Bit/Acetaminophen) 1 Each Tablet 2 Tab PO PRN Q4HRS PRN Hydrocodone-Apap 5-325 (Hydrocodone Bit/Acetaminophen) 1 Each Tablet 1 Tab PO PRN Q4HRS PRN Amlodipine Besylate 5 Mg Tablet 5 Mg PO DAILY Vitals/I & O Vital Sign - Last 24 Hours 07/26/17 07/26/17 07/26/17 07/26/17 08:00 08:00 09:00 10:00 Temp 98.6 98.6 Pulse 73 77 74 Resp 20 22 B/P (MAP) 129/65 (86) 125/60 (81) 126/58 (80) Pulse Ox 96 97 97 O2 Delivery Nasal Cannula Nasal Cannula Nasal Cannula Nasal Cannula O2 Flow Rate 4.0 4.0 4.0 4.0 07/26/17 07/26/17 07/26/17 07/26/17 11:00 11:26 11:26 11:27 Pulse 72 71 78 78 Resp 20 B/P (MAP) 125/64 (84) 125/64 125/64 125/64 Pulse Ox 97 O2 Delivery Nasal Cannula O2 Flow Rate 4.0 07/26/17 07/26/17 07/26/17 07/26/17 12:00 12:00 13:00 14:00 Temp 98.6 98.6 Pulse 76 64 66 Resp 20 22 22 B/P (MAP) 130/49 (76) 99/43 (61) 106/61 (76) Pulse Ox 97 97 97 O2 Delivery Nasal Cannula Nasal Cannula Nasal Cannula Nasal Cannula O2 Flow Rate 4.0 4.0 4.0 4.0 07/26/17 07/26/17 07/26/17 07/26/17 15:00 16:00 16:00 17:00 Temp 98.4 98.4 Pulse 67 71 74 Resp 22 22 22 B/P (MAP) 93/40 (57) 104/65 (78) 118/48 (71) Pulse Ox 97 97 97 O2 Delivery Nasal Cannula Nasal Cannula Nasal Cannula Nasal Cannula O2 Flow Rate 4.0 4.0 4.0 4.0 07/26/17 07/26/17 07/26/17 07/26/17 18:00 19:00 20:00 20:00 Temp 98.2 98.2 Pulse 76 72 72 Resp 18 28 28 B/P (MAP) 113/54 (73) 122/56 (78) 125/58 (80) Pulse Ox 97 99 97 O2 Delivery Nasal Cannula Nasal Cannula Nasal Cannula Nasal Cannula O2 Flow Rate 4.0 4.0 4.0 4.0 07/26/17 07/26/17 07/26/17 07/26/17 21:00 22:00 23:00 23:59 Pulse 77 72 69 Resp 23 25 25 B/P (MAP) 139/56 (83) 126/72 (90) 115/44 (67) Pulse Ox 97 95 97 O2 Delivery Nasal Cannula Nasal Cannula Nasal Cannula Nasal Cannula O2 Flow Rate 4.0 4.0 4.0 4.0 07/27/17 07/27/17 07/27/17 07/27/17 00:00 01:00 02:00 03:00 Temp 98.2 98.2 Pulse 73 66 67 68 Resp 31 24 35 26 B/P (MAP) 122/55 (77) 118/39 (65) 96/43 (60) 119/61 (80) Pulse Ox 94 98 98 95 O2 Delivery Nasal Cannula Nasal Cannula Nasal Cannula Nasal Cannula O2 Flow Rate 4.0 4.0 4.0 4.0 07/27/17 07/27/17 07/27/17 07/27/17 04:00 04:00 05:00 06:00 Temp 98.0 98.0 Pulse 70 67 74 Resp 30 24 30 B/P (MAP) 126/58 (80) 125/58 (80) 118/56 (76) Pulse Ox 96 100 98 O2 Delivery Nasal Cannula Nasal Cannula Nasal Cannula Nasal Cannula O2 Flow Rate 4.0 4.0 4.0 4.0 GIO SMITH MD Jul 27, 2017 07:57
[2017-07-27] MEDS ORDERED: MAGNESIUM HYDROXIDE 2,400 MG/30 ML ORAL.SUSP. PO PRN (08:00)
[2017-07-27] MEDS: BENZOCAINE/MENTHOL LOZENGE. PO PRN ×2 (08:12→19:55)
[2017-07-27] MEDS: ACETAMINOPHEN 500 MG TABLET PO PRN (08:12)
[2017-07-27] MEDS ORDERED: CALCIUM CARBONATE 500 MG TAB.CHEW PO PRN (08:30)
[2017-07-27] MEDS: OMEGA-3 FATTY ACIDS/FISH OIL 1,000 MG CAPSULE. PO SCH (08:32)
[2017-07-27] MEDS: ISOSORBIDE MONONITRATE ER 30 MG TAB.ER.24H PO SCH (08:33)
[2017-07-27] MEDS: CHOLECALCIFEROL (VITAMIN D3) 1,000 UNIT TABLET PO SCH (08:34)
[2017-07-27] MEDS: DOCUSATE SODIUM 100 MG CAPSULE. PO SCH ×2 (08:34→20:50)
[2017-07-27] MEDS: LACTOBACILLUS RHAMNOSUS GG 1 CAPSULE. PO SCH ×2 (08:34→20:50)
[2017-07-27] MEDS: amLODIPine BESYLATE 5 MG TABLET PO SCH (08:34)
[2017-07-27] MEDS: METOPROLOL SUCC 24HR ER 50 MG TAB.ER.24H. PO SCH (08:35)
[2017-07-27] MEDS: PANTOPRAZOLE 40 MG TABLET.DR. PO SCH (08:39)
[2017-07-27] MEDS: POLYETHYLENE GLYCOL 3350 17 GM PACKET. PO SCH (09:00)
[2017-07-27] MEDS: ANTI-COAG MONITOR BY PHARMACY. MC PRN (09:12)
--- NOTE | 2017-07-27 10:25 | RAD ---
Portable chest, 07/27/2017: History: Follow-up pulmonary edema Comparison is made to yesterday's study. A right PICC extends into the superior vena cava. The heart is at the upper limits of normal in size. There are ongoing hazy bibasilar opacities with poor definition of the hemidiaphragms. Finding probably reflect a combination of pleural fluid layering posteriorly and basilar atelectasis/infiltrate. These findings are unchanged. No new abnormality is detected. IMPRESSION: No significant change since yesterday's exam.
--- NOTE | 2017-07-27 10:26 | PDOC ---
SUBJECTIVE ROS CKD IV Doing well, She thinks she can "run" CVS: no Orthopnea, no CP RESP: min SOB, ? OCAMPO (not ambulated) GI: no Nausea, no Vomiting : no Dysuria, no Urgency OBJECTIVE Vital Signs Vital Signs Date Time Temp Pulse Resp B/P (MAP) Pulse Ox O2 Delivery O2 Flow Rate FiO2 07/27/17 09:00 97.8 71 28 11/51 (38) 99 Nasal Cannula 4.0 97.8 I & 0 Intake and Output 07/28/17 07:00 Intake Total 150 ml Output Total 150 ml Balance 0 ml Intake Oral 150 ml Output Urine Total 150 ml PHYSICAL EXAM Physical Exam GEN: Awake, Oriented x 3, In no distress EYES: Vision Unchanged, Conjunctiva Normal EN: No EN Drainage, Mucous Membranes moist NECK: no JVD, + JVP, Supple, no Thyromegaly CVS: S1S2, + Murmur, No Gallop, No Rub, Tr Edema RESP: + rica basal Rales, no Rhonchi,no Acc. Muscle Use GI: BS + ve, NO Bruit, Non Tender, Non Distended : no CVA tenderness, no Suprapubic Tenderness DIAGNOSIS/ASSESSMENT Assessment & Plan (NO LABS YET TODAY) CKD IV - stabel from [facility]. ? May improve with VHDz / CABG vs may end up on AUTOMATIC MOUNTER. Current fluid and E-lyte status does not necessitate emergent need for dialysis. Will re-evaluate for dialysis in the am HypoKalemia - K replacemnet protocol ongoing ANEMIA; Aranesp as ordered, Transfuse as needed CHF - -ve fluid balance is goal. IV Lasix prn/ vs gtt - watch trend HTN: Current BP meds as reviewed. defer to cardiology to optimize from NSTEMi standpoint D/w Dr Zazueta too re near term implications of CKD and CAD Discussed Plan of Care with family at length including CardioRenal interaction and CABG etc. She is not very interested in going on dialysis COMMENT/RELEVANT DATA Meds Current Medications Medications (Trade) Dose Ordered Sig/Beryl Start Time Stop Time Status Last Admin Dose Admin Acetaminophen (Tylenol) 500 mg PRN Q6HRS PRN 07/26/17 11:00 07/27/17 08:12 500 MG Acetaminophen/ Hydrocodone Bitart (Lortab 5/325) 2 tab PRN Q4HRS PRN 07/24/17 11:30 Amlodipine Besylate (Norvasc) 5 mg DAILY 07/25/17 09:00 07/27/17 08:34 5 MG Aspirin (Aspirin) 300 mg DAILY 07/25/17 10:30 07/27/17 09:12 DC 07/25/17 10:39 300 MG Aspirin (Ecotrin) 81 mg DAILYWBKFT 07/27/17 09:30 Atorvastatin Calcium (Lipitor) 40 mg QHS 07/24/17 21:00 07/26/17 21:10 40 MG Calcium Carbonate/ Glycine (Tums) 500 mg PRN AFTMEALHC PRN 07/27/17 08:30 Cefepime HCl (Maxipime) 1 gm Q24H 07/25/17 20:00 07/26/17 20:07 1 GM Cefepime HCl 1 gm/ Dextrose 50 ml @ 100 mls/hr 1X ONCE 07/23/17 20:00 07/23/17 20:29 DC 07/23/17 20:10 100 MLS/HR Dextrose (Dextrose 50%-Water Syringe) 12.5 gm PRN Q15MIN PRN 07/24/17 11:30 UNV Docusate Sodium (Colace) 100 mg BID 07/27/17 09:00 07/27/17 08:34 100 MG Etomidate (Amidate) 20 mg STK-MED ONCE 07/24/17 01:55 07/24/17 01:56 DC Famotidine (Pepcid) 20 mg QHS 07/25/17 21:00 07/27/17 08:20 DC 07/26/17 21:10 20 MG Fish Oil (Fish Oil) 1,000 mg DAILY 07/25/17 09:00 07/27/17 08:32 1,000 MG Guaifenesin (Mucinex) 600 mg BID 07/27/17 09:00 07/27/17 08:39 600 MG Heparin Sodium (Porcine) (Heparin Sodium) 1,550 unit PRN Q6HRS PRN 07/24/17 06:45 07/27/17 09:12 DC 07/26/17 00:11 1,550 UNIT Heparin Sodium/ Dextrose 500 ml @ 0 mls/hr CONT PRN 07/24/17 06:45 07/27/17 09:12 DC 07/24/17 07:57 14.8 MLS/HR Info (Anti-Coagulation Monitoring By Pharmacy) 1 each PRN DAILY PRN 07/24/17 07:00 07/27/17 09:12 1 EACH Insulin Aspart (NovoLOG) 0-7 UNITS Q6HRS 07/24/17 18:00 07/25/17 12:21 2 UNITS Isosorbide Dinitrate (Isordil) 20 mg TID 07/25/17 14:00 07/26/17 10:17 DC 07/25/17 20:47 20 MG Isosorbide Mononitrate (Imdur) 60 mg DAILY 07/26/17 11:00 07/27/17 08:33 60 MG Lactobacillus Rhamnosus (Culturelle) 1 cap BID 07/24/17 09:00 07/27/17 08:34 1 CAP Magnesium Hydroxide (Milk Of Magnesia) 2,400 mg PRN DAILY PRN 07/27/17 08:00 Magnesium Sulfate/ Dextrose 100 ml @ 100 mls/hr 1X ONCE 07/24/17 13:00 07/24/17 13:59 DC 07/24/17 14:21 100 MLS/HR Metoprolol Succinate (Toprol Xl) 50 mg DAILY 07/26/17 11:00 07/27/17 08:35 50 MG Metoprolol Tartrate (Lopressor) 25 mg BID 07/25/17 11:30 07/26/17 10:22 DC 07/25/17 20:48 25 MG Nitroglycerin (Nitrostat) 0.4 mg PRN Q5MIN PRN 07/24/17 11:30 Nitroglycerin/ Dextrose 250 ml @ 0 mls/hr CONT PRN 07/25/17 09:30 07/27/17 08:18 DC 07/25/17 11:23 1.5 MLS/HR Pantoprazole Sodium (Protonix) 40 mg DAILYAC 07/27/17 08:30 07/27/17 08:39 40 MG Polyethylene Glycol (miraLAX PACKET) 17 gm DAILY 07/27/17 09:00 Potassium Chloride 100 ml @ 100 mls/hr Q1H 07/24/17 11:00 07/24/17 12:59 DC 07/24/17 12:57 100 MLS/HR Propofol 100 ml @ 0 mls/hr CONT PRN 07/23/17 22:15 10/30/17 07:31 DC 07/25/17 04:20 0.15 MLS/HR Rocuronium [place] (Zemuron) 50 mg 1X ONCE 07/23/17 19:15 07/23/17 19:16 DC 07/23/17 19:15 50 MG Sodium Chloride 500 ml @ 500 mls/hr 1X ONCE 07/24/17 01:30 07/24/17 02:29 DC 07/24/17 01:30 500 MLS/HR Succinylcholine Chloride (Anectine) 200 mg STK-MED ONCE 07/24/17 01:56 07/24/17 01:57 DC Throat Lozenges (Cepacol Sore Throat Lozenge) 1 dakotah PRN Q2HRS PRN 07/27/17 07:45 07/27/17 08:12 1 DAKOTAH Vancomycin HCl 1 each 1X ONCE 07/27/17 20:30 07/27/17 20:30 DC Vancomycin HCl (Vanco Per Pharmacy) 1 each PRN DAILY PRN 07/23/17 21:30 07/27/17 07:32 DC 07/26/17 10:09 1 EACH Vancomycin HCl 1.25 gm/Sodium Chloride 250 ml @ 166.667 mls/hr 1X ONCE 07/23/17 19:45 07/23/17 21:14 UNV Vancomycin HCl 1.75 gm/Dextrose 500 ml @ 250 mls/hr 1X ONCE 07/23/17 20:00 07/23/17 21:59 DC 07/23/17 21:12 250 MLS/HR Vancomycin HCl 1 gm/Dextrose 250 ml @ 250 mls/hr Q48H 07/25/17 21:00 07/27/17 07:32 DC 07/25/17 20:46 250 MLS/HR Vitamin D (Vitamin D3) 1,000 unit DAILY 07/25/17 09:00 07/27/17 08:34 1,000 UNIT Lab Laboratory Tests Test 07/26/17 11:34 07/26/17 12:15 07/26/17 17:31 07/26/17 18:30 Glucose (Fingerstick) 179 mg/dL (70-99) 191 mg/dL (70-99) Heparin Anti-Xa Act, Unfractionated 0.73 IU/mL (0.30-0.70) 0.55 IU/mL (0.30-0.70) Test 07/27/17 00:08 07/27/17 00:20 07/27/17 06:00 07/27/17 06:11 Glucose (Fingerstick) 147 mg/dL (70-99) 130 mg/dL (70-99) Heparin Anti-Xa Act, Unfractionated > 1.10 IU/mL (0.30-0.70) 0.46 IU/mL (0.30-0.70) White Blood Count 6.6 x10^3/uL (4.0-11.0) Red Blood Count 2.29 x10^6/uL (3.50-5.40) Hemoglobin 7.2 g/dL (12.0-15.5) Hematocrit 21.8 % (36.0-47.0) Mean Corpuscular Volume 95 fL (79-100) Mean Corpuscular Hemoglobin 32 pg (25-35) Mean Corpuscular Hemoglobin Concent 33 g/dL (31-37) Red Cell Distribution Width 14.9 % (11.5-14.5) Platelet Count 131 x10^3/uL (140-400) Neutrophils (%) (Auto) 61 % (31-73) Lymphocytes (%) (Auto) 24 % (24-48) Monocytes (%) (Auto) 8 % (0-9) Eosinophils (%) (Auto) 7 % (0-3) Basophils (%) (Auto) 1 % (0-3) Neutrophils # (Auto) 4.0 x10^3uL (1.8-7.7) Lymphocytes # (Auto) 1.6 x10^3/uL (1.0-4.8) Monocytes # (Auto) 0.5 x10^3/uL (0.0-1.1) Eosinophils # (Auto) 0.4 x10^3/uL (0.0-0.7) Basophils # (Auto) 0.0 x10^3/uL (0.0-0.2) Test 07/27/17 08:22 Glucose (Fingerstick) 145 mg/dL (70-99) JUVENAL LEAVITT MD Jul 27, 2017 10:26
[2017-07-27] MEDS ORDERED: MAGNESIUM SULFATE 2GM 50 ML IV PRN (10:30)
--- NOTE | 2017-07-27 11:09 | PDOC ---
PULMONARY PROGRESS NOTES Subjective PT EXTUBATED 07/25 OFF 02 DESAT WITH SLEEP Vitals Vital Signs Date Time Temp Pulse Resp B/P (MAP) Pulse Ox O2 Delivery O2 Flow Rate FiO2 07/27/17 10:13 70 26 115/50 (71) 98 Nasal Cannula 2.0 07/27/17 09:00 97.8 97.8 ROS: No Nausea, No Chest Pain, No Abdominal Pain, No Increase Cough General: Alert Lungs: Clear Cardiovascular: S1, S2 Abdomen: Soft Neuro Exam: Alert Extremities: No Edema Skin: Warm Labs Laboratory Tests Test 07/25/17 12:19 07/25/17 14:00 07/25/17 17:58 07/25/17 20:35 Glucose (Fingerstick) 205 mg/dL (70-99) 130 mg/dL (70-99) Heparin Anti-Xa Act, Unfractionated 0.67 IU/mL (0.30-0.70) < 0.10 IU/mL (0.30-0.70) Test 07/26/17 00:16 07/26/17 06:00 07/26/17 06:08 07/26/17 11:34 Glucose (Fingerstick) 146 mg/dL (70-99) 148 mg/dL (70-99) 179 mg/dL (70-99) Heparin Anti-Xa Act, Unfractionated 0.17 IU/mL (0.30-0.70) Sodium Level 142 mmol/L (136-145) Potassium Level 3.5 mmol/L (3.5-5.1) Chloride Level 110 mmol/L (98-107) Carbon Dioxide Level 20 mmol/L (21-32) Anion Gap 12 (6-14) Blood Urea Nitrogen 23 mg/dL (7-20) Creatinine 2.0 mg/dL (0.6-1.0) Estimated GFR (Cockcroft-Gault) 24.0 Glucose Level 151 mg/dL (70-99) Calcium Level 8.1 mg/dL (8.5-10.1) Magnesium Level 2.3 mg/dL (1.8-2.4) Test 07/26/17 12:15 07/26/17 17:31 07/26/17 18:30 07/27/17 00:08 Heparin Anti-Xa Act, Unfractionated 0.73 IU/mL (0.30-0.70) 0.55 IU/mL (0.30-0.70) Glucose (Fingerstick) 191 mg/dL (70-99) 147 mg/dL (70-99) Test 07/27/17 00:20 07/27/17 06:00 07/27/17 06:11 07/27/17 08:22 Heparin Anti-Xa Act, Unfractionated > 1.10 IU/mL (0.30-0.70) 0.46 IU/mL (0.30-0.70) White Blood Count 6.6 x10^3/uL (4.0-11.0) Red Blood Count 2.29 x10^6/uL (3.50-5.40) Hemoglobin 7.2 g/dL (12.0-15.5) Hematocrit 21.8 % (36.0-47.0) Mean Corpuscular Volume 95 fL (79-100) Mean Corpuscular Hemoglobin 32 pg (25-35) Mean Corpuscular Hemoglobin Concent 33 g/dL (31-37) Red Cell Distribution Width 14.9 % (11.5-14.5) Platelet Count 131 x10^3/uL (140-400) Neutrophils (%) (Auto) 61 % (31-73) Lymphocytes (%) (Auto) 24 % (24-48) Monocytes (%) (Auto) 8 % (0-9) Eosinophils (%) (Auto) 7 % (0-3) Basophils (%) (Auto) 1 % (0-3) Neutrophils # (Auto) 4.0 x10^3uL (1.8-7.7) Lymphocytes # (Auto) 1.6 x10^3/uL (1.0-4.8) Monocytes # (Auto) 0.5 x10^3/uL (0.0-1.1) Eosinophils # (Auto) 0.4 x10^3/uL (0.0-0.7) Basophils # (Auto) 0.0 x10^3/uL (0.0-0.2) Glucose (Fingerstick) 130 mg/dL (70-99) 145 mg/dL (70-99) Laboratory Tests Test 07/26/17 11:34 07/26/17 12:15 07/26/17 17:31 07/26/17 18:30 Glucose (Fingerstick) 179 mg/dL (70-99) 191 mg/dL (70-99) Heparin Anti-Xa Act, Unfractionated 0.73 IU/mL (0.30-0.70) 0.55 IU/mL (0.30-0.70) Test 07/27/17 00:08 07/27/17 00:20 07/27/17 06:00 07/27/17 06:11 Glucose (Fingerstick) 147 mg/dL (70-99) 130 mg/dL (70-99) Heparin Anti-Xa Act, Unfractionated > 1.10 IU/mL (0.30-0.70) 0.46 IU/mL (0.30-0.70) White Blood Count 6.6 x10^3/uL (4.0-11.0) Red Blood Count 2.29 x10^6/uL (3.50-5.40) Hemoglobin 7.2 g/dL (12.0-15.5) Hematocrit 21.8 % (36.0-47.0) Mean Corpuscular Volume 95 fL (79-100) Mean Corpuscular Hemoglobin 32 pg (25-35) Mean Corpuscular Hemoglobin Concent 33 g/dL (31-37) Red Cell Distribution Width 14.9 % (11.5-14.5) Platelet Count 131 x10^3/uL (140-400) Neutrophils (%) (Auto) 61 % (31-73) Lymphocytes (%) (Auto) 24 % (24-48) Monocytes (%) (Auto) 8 % (0-9) Eosinophils (%) (Auto) 7 % (0-3) Basophils (%) (Auto) 1 % (0-3) Neutrophils # (Auto) 4.0 x10^3uL (1.8-7.7) Lymphocytes # (Auto) 1.6 x10^3/uL (1.0-4.8) Monocytes # (Auto) 0.5 x10^3/uL (0.0-1.1) Eosinophils # (Auto) 0.4 x10^3/uL (0.0-0.7) Basophils # (Auto) 0.0 x10^3/uL (0.0-0.2) Test 07/27/17 08:22 Glucose (Fingerstick) 145 mg/dL (70-99) Medications Active Scripts Medications Dose Route/Sig Max Daily Dose Days Date Category Pravastatin Sodium 20 Mg Tablet 20 Mg PO DAILY 07/24/17 Reported Pantoprazole Sodium 40 Mg Tablet. 40 Mg PO DAILY 07/24/17 Reported [place] 3 Fish Oil Softgel ([place]-3 Fatty Acids/Fish Oil) 1 Each Capsule. 1,000 Mg PO DAILY 07/24/17 Reported Toprol Xl (Metoprolol Succinate) 50 Mg Tab.er.24h 1 Tab PO DAILY 07/24/17 Reported Isosorbide Mononitrate Er (Isosorbide Mononitrate) 60 Mg Tab.er.24h 1 Tab PO DAILY 07/24/17 Reported Humalog (Insulin Lispro) 100 Unit/1 Ml Cartridge 5-8 Unit SQ TIDBFRMEAL 07/24/17 Reported Vitamin D3 (Cholecalciferol (Vitamin D3)) 1,000 Unit Tablet 1 Tab PO DAILY 07/24/17 Reported Aspir 81 (Aspirin) 81 Mg Tablet. 1 Tab PO DAILY 07/24/17 Reported Ascorbic Acid 250 Mg Tablet 250 Mg PO 07/24/17 Reported Hydrocodone-Apap 5-325 (Hydrocodone Bit/Acetaminophen) 1 Each Tablet 2 Tab PO PRN Q4HRS PRN 07/24/17 Reported Hydrocodone-Apap 5-325 (Hydrocodone Bit/Acetaminophen) 1 Each Tablet 1 Tab PO PRN Q4HRS PRN 07/24/17 Reported Amlodipine Besylate 5 Mg Tablet 5 Mg PO DAILY 07/24/17 Reported Comments 1. Bibasilar heterogenous airspace opacities may relate to atelectasis, although edema or an infectious process cannot be excluded. 2. Possible small bilateral pleural effusions. 3. Interval removal of endotracheal tube and enteric tube. Stable right PICC. Impression . 1. Acute respiratory failure, multifactorial. 2. Acute diastolic, systolic heart failure. 3. Non-ST segment elevation myocardial infarction. 4. Recent right carotid endarterectomy performed on July 22. 5. Possible sepsis. 6. Fever. 7. Leukocytosis. 8. Coronary artery disease requiring coronary artery bypass grafting. 9. Anemia. 10. Chronic kidney disease. 11. Possible SYDNEY Plan . LASIX, REPEAT CXR BIPAP QHS will need outpt sleep study SPOKE WITH DAUGHTER 1. D/C RODRICKO ON CEFEPOME 2. FOLLOW CARD 3. FOLLOW NEPHRO 4. Titrate FiO2. ZAFAR LANIER MD Jul 27, 2017 11:09
[2017-07-27] MEDS: ASPIRIN ENTERIC COATED 81 MG TABLET.DR. PO SCH (11:26)
[2017-07-27] MEDS ORDERED: FUROSEMIDE 40 MG/4 ML VIAL. IVP ONE (11:30)
[2017-07-27] MEDS: FUROSEMIDE 40 MG/4 ML VIAL. IVP SCH (14:34)
--- NOTE | 2017-07-27 17:14 | PDOC ---
CARDIOLOGY PROGRESS NOTE SUBJECTIVE: No acute events overnight. Denies chest pain or dyspnea. OBJECTIVE: Vital SIgns: Vital Signs Date Time Temp Pulse Resp B/P (MAP) Pulse Ox O2 Delivery O2 Flow Rate FiO2 07/27/17 14:00 76 30 123/62 (82) 95 Room Air 07/27/17 12:00 2.0 07/27/17 12:00 98.0 98.0 I & O Intake and Output 07/28/17 07:00 Intake Total 636 ml Output Total 651 ml Balance -15 ml Intake Oral 600 ml IV Total 36 ml Output Urine Total 651 ml Objective: GEN.: No apparent distress. Alert and oriented. HEENT: Head is normocephalic, atraumatic NECK: Supple. LUNGS: Bilateral rhonchi/rales HEART: RRR, S1, S2 present. Peripheral pulses intact ABDOMEN: Soft, nontender. Positive bowel sounds. EXTREMITIES: Cool to touch NEUROLOGIC: Normal speech, normal tone PSYCHIATRIC: Normal affect, normal mood. SKIN: No ulcerations CURRENT MEDICATIONS: meds reviewed Metop, imdur, asa, statin, amlodipine DIAGNOSTIC TESTING: Cr 2.0 - (baseline apparently around 2.5) Hgb 7.2 ASSESSMENT: 1. NSTEMI 2. Three vessel cAD 3. HTN 4. Dyslipidemia 5. Acute on chronic resp failure 6. PAD. Problems: PLAN: 1. I spoke to Dr. Stern at [facility]. Discussed her heart cath findings. Upon further review her baseline cr apparently is 2.3-2.7 Her cath apparently also reveals disease that would also be amenable to PCI. -SPoke to patient about her anemia but she wishes to defer transfusion. -Will plan for continued optimization of BP/HR and monitor for further blood loss. If less than 7, then highly recommend transfusion. -If she does well and able to ambulate without pain, ok to DC in 24-48 hours after hgb stabilized. IF she has recurrent pain, will proceed to physical laboratory assistant for possible high risk PCI. -Will start plavix prior to DC after hgb issues resolved. (Discussed with [facility] AT THE [facility] that their surgeons will operate on plavix). NASH PADRON MD Jul 27, 2017 17:14
--- NOTE | 2017-07-27 18:07 | PDOC2 ---
PALLIATIVE CARE Palliative Care Note Palliative Care Patient alert. Sitting up in chair. Met with patient's daughters Jocelyn and Coby. Son Aleisha unable to be here. Son Killian lives in [place] Reviewed current medical condition; NSTMI, respirtory failure--resolved.CAD; CKD ; DM, anemia. Dr Jayjay Bah had long discussion with patient and daughters reviewing renal concern including Dialysis after Cardica Surgery. Patient has states she would not want dialysis. Does not want Cardiac surgery until September. Labs reviewed. Patient will be going home with daughter. Wants more time to discuss with family. Patient wishes to remain full aggressive care. Plan: Home with Home Health Full Code. IVANIA PIZARRO Jul 27, 2017 18:07
[2017-07-27] MEDS: CEFEPIME HCL IV Push 1 GM VIAL. IVP SCH (19:55)
[2017-07-27] MEDS: ATORVASTATIN CALCIUM 40 MG TABLET. PO SCH (20:50)
[2017-07-28] VITALS: BP 138/63
[2017-07-28 04:00] VITALS: BP 131/62
[2017-07-28 06:47] LABS: ALBUMIN 2.4 g/dL (3.4-5.0); CALCIUM 8.7 mg/dL (8.5-10.1); CREATININE 2.5 mg/dL (0.6-1.0); GFR 18.5; PHOSPHORUS 3.7 mg/dL (2.6-4.7); POTASSIUM 3.7 mmol/L (3.5-5.1)
[2017-07-28] MEDS: INSULIN ASPART 300 UNITS/3 ML INSULN.PEN SQ SCH ×3 (07:30→16:30)
[2017-07-28 08:00] VITALS: BP 136/59
--- NOTE | 2017-07-28 08:59 | PDOC ---
SUBJECTIVE ROS CKD IV Doign OK by her reports CVS: no Orthopnea, no CP RESP: no SOB, no OCAMPO GI: no Nausea, no Vomiting : no Dysuria, no Urgency OBJECTIVE Vital Signs Vital Signs Date Time Temp Pulse Resp B/P (MAP) Pulse Ox O2 Delivery O2 Flow Rate FiO2 07/28/17 04:00 98.3 73 28 131/62 (85) 96 Nasal Cannula 2.0 98.3 PHYSICAL EXAM Physical Exam GEN: Awake, Oriented x 3, In no distress EYES: Vision Unchanged, Conjunctiva Normal EN: No EN Drainage, Mucous Membranes moist NECK: no JVD, + JVP, Supple, no Thyromegaly CVS: S1S2, + Murmur, No Gallop, No Rub, Tr Edema RESP: + rcia basal Rales, no Rhonchi,no Acc. Muscle Use GI: BS + ve, NO Bruit, Non Tender, Non Distended : no CVA tenderness, no Suprapubic Tenderness DIAGNOSIS/ASSESSMENT Assessment & Plan CKD IV - stable from [facility]. ? May improve with VHDz / CABG vs may end up on HEAD RIGGER. Current fluid and E-lyte status does not necessitate emergent need for dialysis. Will re-evaluate for dialysis in the am HypoKalemia - K replacemnet protocol ongoing and now corrected ANEMIA; Aranesp as ordered, Transfuse as needed CHF - -ve fluid balance is goal. IV Lasix prn/ vs gtt - watch trend HTN: Current BP meds as reviewed. defer to cardiology to optimize from NSTEMi standpoint D/w Dr Zazueta too re near term implications of CKD and CAD COMMENT/RELEVANT DATA Meds Current Medications Medications (Trade) Dose Ordered Sig/Beryl Start Time Stop Time Status Last Admin Dose Admin Acetaminophen (Tylenol) 500 mg PRN Q6HRS PRN 07/26/17 11:00 07/27/17 08:12 500 MG Acetaminophen/ Hydrocodone Bitart (Lortab 5/325) 2 tab PRN Q4HRS PRN 07/24/17 11:30 Amlodipine Besylate (Norvasc) 5 mg DAILY 07/25/17 09:00 07/27/17 08:34 5 MG Aspirin (Aspirin) 300 mg DAILY 07/25/17 10:30 07/27/17 09:12 DC 07/25/17 10:39 300 MG Aspirin (Ecotrin) 81 mg DAILYWBKFT 07/27/17 09:30 07/27/17 11:26 81 MG Atorvastatin Calcium (Lipitor) 40 mg QHS 07/24/17 21:00 07/27/17 20:50 40 MG Calcium Carbonate/ Glycine (Tums) 500 mg PRN AFTMEALHC PRN 07/27/17 08:30 Cefepime HCl (Maxipime) 1 gm Q24H 07/25/17 20:00 07/27/17 19:55 1 GM Cefepime HCl 1 gm/ Dextrose 50 ml @ 100 mls/hr 1X ONCE 07/23/17 20:00 07/23/17 20:29 DC 07/23/17 20:10 100 MLS/HR Dextrose (Dextrose 50%-Water Syringe) 12.5 gm PRN Q15MIN PRN 07/24/17 11:30 UNV Docusate Sodium (Colace) 100 mg BID 07/27/17 09:00 07/27/17 20:50 100 MG Etomidate (Amidate) 20 mg STK-MED ONCE 07/24/17 01:55 07/24/17 01:56 DC Famotidine (Pepcid) 20 mg QHS 07/25/17 21:00 07/27/17 08:20 DC 07/26/17 21:10 20 MG Fish Oil (Fish Oil) 1,000 mg DAILY 07/25/17 09:00 07/27/17 08:32 1,000 MG Furosemide (Lasix) 40 mg 1X ONCE 07/27/17 11:30 07/27/17 11:31 DC 07/27/17 11:26 40 MG Guaifenesin (Mucinex) 600 mg BID 07/27/17 09:00 07/27/17 20:50 600 MG Heparin Sodium (Porcine) (Heparin Sodium) 1,550 unit PRN Q6HRS PRN 07/24/17 06:45 07/27/17 09:12 DC 07/26/17 00:11 1,550 UNIT Heparin Sodium/ Dextrose 500 ml @ 0 mls/hr CONT PRN 07/24/17 06:45 07/27/17 09:12 DC 07/24/17 07:57 14.8 MLS/HR Info (Anti-Coagulation Monitoring By Pharmacy) 1 each PRN DAILY PRN 07/24/17 07:00 07/28/17 08:37 DC 07/27/17 09:12 1 EACH Insulin Aspart (NovoLOG) 0-7 UNITS QIDACHS 07/27/17 11:30 07/27/17 13:06 3 UNITS Isosorbide Dinitrate (Isordil) 20 mg TID 07/25/17 14:00 07/26/17 10:17 DC 07/25/17 20:47 20 MG Isosorbide Mononitrate (Imdur) 60 mg DAILY 07/26/17 11:00 07/27/17 08:33 60 MG Lactobacillus Rhamnosus (Culturelle) 1 cap BID 07/24/17 09:00 07/27/17 20:50 1 CAP Magnesium Hydroxide (Milk Of Magnesia) 2,400 mg PRN DAILY PRN 07/27/17 08:00 Magnesium Sulfate/ Dextrose 50 ml @ 25 mls/hr PRN DAILY PRN 07/27/17 10:30 Metoprolol Succinate (Toprol Xl) 50 mg DAILY 07/26/17 11:00 07/27/17 08:35 50 MG Metoprolol Tartrate (Lopressor) 25 mg BID 07/25/17 11:30 07/26/17 10:22 DC 07/25/17 20:48 25 MG Nitroglycerin (Nitrostat) 0.4 mg PRN Q5MIN PRN 07/24/17 11:30 Nitroglycerin/ Dextrose 250 ml @ 0 mls/hr CONT PRN 07/25/17 09:30 07/27/17 08:18 DC 07/25/17 11:23 1.5 MLS/HR Pantoprazole Sodium (Protonix) 40 mg DAILYAC 07/27/17 08:30 07/27/17 08:39 40 MG Polyethylene Glycol (miraLAX PACKET) 17 gm DAILY 07/27/17 09:00 Potassium Chloride 100 ml @ 100 mls/hr Q1H 07/24/17 11:00 07/24/17 12:59 DC 07/24/17 12:57 100 MLS/HR Propofol 100 ml @ 0 mls/hr CONT PRN 07/23/17 22:15 07/27/17 07:31 DC 07/25/17 04:20 0.15 MLS/HR Rocuronium [place] (Zemuron) 50 mg 1X ONCE 10/26/17 19:15 07/23/17 19:16 DC 07/23/17 19:15 50 MG Sodium Chloride 500 ml @ 500 mls/hr 1X ONCE 07/24/17 01:30 07/24/17 02:29 DC 07/24/17 01:30 500 MLS/HR Succinylcholine Chloride (Anectine) 200 mg STK-MED ONCE 07/24/17 01:56 07/24/17 01:57 DC Throat Lozenges (Cepacol Sore Throat Lozenge) 1 dakotah PRN Q2HRS PRN 07/27/17 07:45 07/27/17 19:55 1 DAKOTAH Vancomycin HCl 1 each 1X ONCE 07/27/17 20:30 07/27/17 20:30 DC Vancomycin HCl (Vanco Per Pharmacy) 1 each PRN DAILY PRN 07/23/17 21:30 07/27/17 07:32 DC 07/26/17 10:09 1 EACH Vancomycin HCl 1.25 gm/Sodium Chloride 250 ml @ 166.667 mls/hr 1X ONCE 07/23/17 19:45 07/23/17 21:14 UNV Vancomycin HCl 1.75 gm/Dextrose 500 ml @ 250 mls/hr 1X ONCE 07/23/17 20:00 07/23/17 21:59 DC 07/23/17 21:12 250 MLS/HR Vancomycin HCl 1 gm/Dextrose 250 ml @ 250 mls/hr Q48H 07/25/17 21:00 07/27/17 07:32 DC 07/25/17 20:46 250 MLS/HR Vitamin D (Vitamin D3) 1,000 unit DAILY 07/25/17 09:00 07/27/17 08:34 1,000 UNIT Lab Laboratory Tests Test 07/27/17 11:28 07/27/17 17:35 07/27/17 20:49 07/28/17 05:45 Glucose (Fingerstick) 152 mg/dL (70-99) 134 mg/dL (70-99) 148 mg/dL (70-99) Hemoglobin 8.0 g/dL (12.0-15.5) Hematocrit 24.0 % (36.0-47.0) Mean Corpuscular Hemoglobin Concent 34 g/dL (31-37) Sodium Level 142 mmol/L (136-145) Potassium Level 3.7 mmol/L (3.5-5.1) Chloride Level 106 mmol/L (98-107) Carbon Dioxide Level 28 mmol/L (21-32) Anion Gap 8 (6-14) Blood Urea Nitrogen 30 mg/dL (7-20) Creatinine 2.5 mg/dL (0.6-1.0) Estimated GFR (Cockcroft-Gault) 18.5 Glucose Level 126 mg/dL (70-99) Calcium Level 8.7 mg/dL (8.5-10.1) Phosphorus Level 3.7 mg/dL (2.6-4.7) Magnesium Level 1.9 mg/dL (1.8-2.4) Albumin 2.4 g/dL (3.4-5.0) JUVENAL LEAVITT MD Jul 28, 2017 08:59
[2017-07-28] MEDS: FUROSEMIDE 40 MG/4 ML VIAL. IVP SCH (09:49)
[2017-07-28] MEDS: BENZOCAINE/MENTHOL LOZENGE. PO PRN (09:49)
[2017-07-28] MEDS: OMEGA-3 FATTY ACIDS/FISH OIL 1,000 MG CAPSULE. PO SCH (09:49)
[2017-07-28] MEDS: ASPIRIN ENTERIC COATED 81 MG TABLET.DR. PO SCH (09:51)
[2017-07-28] MEDS: amLODIPine BESYLATE 5 MG TABLET PO SCH (09:51)
[2017-07-28] MEDS: LACTOBACILLUS RHAMNOSUS GG 1 CAPSULE. PO SCH (09:52)
[2017-07-28] MEDS: METOPROLOL SUCC 24HR ER 50 MG TAB.ER.24H. PO SCH (09:52)
[2017-07-28] MEDS: CHOLECALCIFEROL (VITAMIN D3) 1,000 UNIT TABLET PO SCH (09:52)
[2017-07-28] MEDS: ISOSORBIDE MONONITRATE ER 30 MG TAB.ER.24H PO SCH (09:53)
[2017-07-28] MEDS: POLYETHYLENE GLYCOL 3350 17 GM PACKET. PO SCH (09:53)
[2017-07-28] MEDS: DOCUSATE SODIUM 100 MG CAPSULE. PO SCH (09:54)
[2017-07-28] MEDS: PANTOPRAZOLE 40 MG TABLET.DR. PO SCH (09:57)
--- NOTE | 2017-07-28 10:35 | PDOC ---
PULMONARY PROGRESS NOTES Subjective PT EXTUBATED 07/25 OFF 02 DESAT WITH SLEEP NO SOA Vitals Vital Signs Date Time Temp Pulse Resp B/P (MAP) Pulse Ox O2 Delivery O2 Flow Rate FiO2 07/28/17 09:53 80 136/59 07/28/17 08:00 Room Air 07/28/17 04:00 98.3 28 96 2.0 98.3 ROS: No Nausea, No Chest Pain, No Abdominal Pain, No Increase Cough General: Alert, No acute distress Lungs: Clear Cardiovascular: S1, S2 Abdomen: Soft Neuro Exam: Alert Extremities: No Edema Skin: Warm Labs Laboratory Tests Test 07/26/17 11:34 07/26/17 12:15 07/26/17 17:31 07/26/17 18:30 Glucose (Fingerstick) 179 mg/dL (70-99) 191 mg/dL (70-99) Heparin Anti-Xa Act, Unfractionated 0.73 IU/mL (0.30-0.70) 0.55 IU/mL (0.30-0.70) Test 07/27/17 00:08 07/27/17 00:20 07/27/17 06:00 07/27/17 06:11 Glucose (Fingerstick) 147 mg/dL (70-99) 130 mg/dL (70-99) Heparin Anti-Xa Act, Unfractionated > 1.10 IU/mL (0.30-0.70) 0.46 IU/mL (0.30-0.70) White Blood Count 6.6 x10^3/uL (4.0-11.0) Red Blood Count 2.29 x10^6/uL (3.50-5.40) Hemoglobin 7.2 g/dL (12.0-15.5) Hematocrit 21.8 % (36.0-47.0) Mean Corpuscular Volume 95 fL (79-100) Mean Corpuscular Hemoglobin 32 pg (25-35) Mean Corpuscular Hemoglobin Concent 33 g/dL (31-37) Red Cell Distribution Width 14.9 % (11.5-14.5) Platelet Count 131 x10^3/uL (140-400) Neutrophils (%) (Auto) 61 % (31-73) Lymphocytes (%) (Auto) 24 % (24-48) Monocytes (%) (Auto) 8 % (0-9) Eosinophils (%) (Auto) 7 % (0-3) Basophils (%) (Auto) 1 % (0-3) Neutrophils # (Auto) 4.0 x10^3uL (1.8-7.7) Lymphocytes # (Auto) 1.6 x10^3/uL (1.0-4.8) Monocytes # (Auto) 0.5 x10^3/uL (0.0-1.1) Eosinophils # (Auto) 0.4 x10^3/uL (0.0-0.7) Basophils # (Auto) 0.0 x10^3/uL (0.0-0.2) Test 07/27/17 08:22 07/27/17 11:28 07/27/17 17:35 07/27/17 20:49 Glucose (Fingerstick) 145 mg/dL (70-99) 152 mg/dL (70-99) 134 mg/dL (70-99) 148 mg/dL (70-99) Test 07/28/17 05:45 Hemoglobin 8.0 g/dL (12.0-15.5) Hematocrit 24.0 % (36.0-47.0) Mean Corpuscular Hemoglobin Concent 34 g/dL (31-37) Sodium Level 142 mmol/L (136-145) Potassium Level 3.7 mmol/L (3.5-5.1) Chloride Level 106 mmol/L (98-107) Carbon Dioxide Level 28 mmol/L (21-32) Anion Gap 8 (6-14) Blood Urea Nitrogen 30 mg/dL (7-20) Creatinine 2.5 mg/dL (0.6-1.0) Estimated GFR (Cockcroft-Gault) 18.5 Glucose Level 126 mg/dL (70-99) Calcium Level 8.7 mg/dL (8.5-10.1) Phosphorus Level 3.7 mg/dL (2.6-4.7) Magnesium Level 1.9 mg/dL (1.8-2.4) Albumin 2.4 g/dL (3.4-5.0) Laboratory Tests Test 07/27/17 11:28 07/27/17 17:35 07/27/17 20:49 07/28/17 05:45 Glucose (Fingerstick) 152 mg/dL (70-99) 134 mg/dL (70-99) 148 mg/dL (70-99) Hemoglobin 8.0 g/dL (12.0-15.5) Hematocrit 24.0 % (36.0-47.0) Mean Corpuscular Hemoglobin Concent 34 g/dL (31-37) Sodium Level 142 mmol/L (136-145) Potassium Level 3.7 mmol/L (3.5-5.1) Chloride Level 106 mmol/L (98-107) Carbon Dioxide Level 28 mmol/L (21-32) Anion Gap 8 (6-14) Blood Urea Nitrogen 30 mg/dL (7-20) Creatinine 2.5 mg/dL (0.6-1.0) Estimated GFR (Cockcroft-Gault) 18.5 Glucose Level 126 mg/dL (70-99) Calcium Level 8.7 mg/dL (8.5-10.1) Phosphorus Level 3.7 mg/dL (2.6-4.7) Magnesium Level 1.9 mg/dL (1.8-2.4) Albumin 2.4 g/dL (3.4-5.0) Medications Active Scripts Medications Dose Route/Sig Max Daily Dose Days Date Category Pravastatin Sodium 20 Mg Tablet 20 Mg PO DAILY 07/24/17 Reported Pantoprazole Sodium 40 Mg Tablet.dr 40 Mg PO DAILY 07/24/17 Reported [place] 3 Fish Oil Softgel ([place]-3 Fatty Acids/Fish Oil) 1 Each Capsule.dr 1,000 Mg PO DAILY 07/24/17 Reported Toprol Xl (Metoprolol Succinate) 50 Mg Tab.er.24h 1 Tab PO DAILY 07/24/17 Reported Isosorbide Mononitrate Er (Isosorbide Mononitrate) 60 Mg Tab.er.24h 1 Tab PO DAILY 07/24/17 Reported Humalog (Insulin Lispro) 100 Unit/1 Ml Cartridge 5-8 Unit SQ TIDBFRMEAL 07/24/17 Reported Vitamin D3 (Cholecalciferol (Vitamin D3)) 1,000 Unit Tablet 1 Tab PO DAILY 07/24/17 Reported Aspir 81 (Aspirin) 81 Mg Tablet.dr 1 Tab PO DAILY 07/24/17 Reported Ascorbic Acid 250 Mg Tablet 250 Mg PO 07/24/17 Reported Hydrocodone-Apap 5-325 (Hydrocodone Bit/Acetaminophen) 1 Each Tablet 2 Tab PO PRN Q4HRS PRN 07/24/17 Reported Hydrocodone-Apap 5-325 (Hydrocodone Bit/Acetaminophen) 1 Each Tablet 1 Tab PO PRN Q4HRS PRN 07/24/17 Reported Amlodipine Besylate 5 Mg Tablet 5 Mg PO DAILY 07/24/17 Reported Comments 1. Bibasilar heterogenous airspace opacities may relate to atelectasis, although edema or an infectious process cannot be excluded. 2. Possible small bilateral pleural effusions. 3. Interval removal of endotracheal tube and enteric tube. Stable right PICC. Impression . 1. Acute respiratory failure, multifactorial. 2. Acute diastolic heart failure. 3. Non-ST segment elevation myocardial infarction. 4. Recent right carotid endarterectomy performed on July 22. 5. Possible sepsis. 6. Fever. resolved 7. Leukocytosis. 8. Coronary artery disease requiring coronary artery bypass grafting. 9. Anemia. 10. Chronic kidney disease. 11. Possible SYDNEY Plan . Clinically better Diuresis BIPAP QHS prn will need outpt sleep study SPOKE WITH DAUGHTER 1. ANTIBIOTICS PER ID 2. FOLLOW CARD 3. FOLLOW NEPHRO 4. Titrate FiO2. SHAHNAZ BAKER MD Jul 28, 2017 10:35
--- NOTE | 2017-07-28 11:15 | PDOC ---
CARDIO Progress Notes Date and Time Date of Service 07/28/17 Time of Evaluation 1100 Subjective Subjective: No Chest Pain, No shortness of breath Vitals Vitals Vital Signs Date Time Temp Pulse Resp B/P (MAP) Pulse Ox O2 Delivery O2 Flow Rate FiO2 07/28/17 09:53 80 136/59 07/28/17 08:00 Room Air 07/28/17 04:00 98.3 28 96 2.0 98.3 Weight Weight [ ] Laboratory Labs Laboratory Tests Test 07/27/17 11:28 07/27/17 17:35 07/27/17 20:49 07/28/17 05:45 Glucose (Fingerstick) 152 mg/dL (70-99) 134 mg/dL (70-99) 148 mg/dL (70-99) Hemoglobin 8.0 g/dL (12.0-15.5) Hematocrit 24.0 % (36.0-47.0) Mean Corpuscular Hemoglobin Concent 34 g/dL (31-37) Sodium Level 142 mmol/L (136-145) Potassium Level 3.7 mmol/L (3.5-5.1) Chloride Level 106 mmol/L (98-107) Carbon Dioxide Level 28 mmol/L (21-32) Anion Gap 8 (6-14) Blood Urea Nitrogen 30 mg/dL (7-20) Creatinine 2.5 mg/dL (0.6-1.0) Estimated GFR (Cockcroft-Gault) 18.5 Glucose Level 126 mg/dL (70-99) Calcium Level 8.7 mg/dL (8.5-10.1) Phosphorus Level 3.7 mg/dL (2.6-4.7) Magnesium Level 1.9 mg/dL (1.8-2.4) Albumin 2.4 g/dL (3.4-5.0) Microbiology Micro Microbiology 07/23/17 Blood Culture - Preliminary, Resulted NO GROWTH AFTER 4 DAYS Physical Exam HEENT: Neck Supple W Full Motion Chest: Symmetric LUNGS: Clear to Auscultation Heart: S1S2, RRR Abdomen: Soft N/T Extremities: Other (trace LE edema ) Neurology: alert, oriented, follow commands Assessment Assessment 1. NSTEMI; peak 10.629 2. Three vessel CAD with plans for CABG at [facility] in September 3. HTN; well-controlled 4. Dyslipidemia; LDL 54. statin 5. Acute diastolic HF; improved with IV Lasix, now compensated 6. Acute on chronic resp failure; improved Recommendations Hgb stable at 8.0. Start plavix Covert Lasix to oral Outpatient f/u with locator at [place] within 1 week. Supportive care VENU GARCIA APRN Jul 28, 2017 11:15
--- NOTE | 2017-07-28 11:39 | PDOC ---
PROGRESS NOTES Chief Complaint Chief Complaint ASSESSMENT AND PLAN: 1. Acute respir failur: 2/2 flash pulm edema extubated 07/25 (intub approx 2 days) 2. NSTEMI: CABG ideal but poor surgical candidate 3. CAD: with occluded stents (placed 2 yrs ago). 4. Recent Carotid endarcterectomy, L with 70% blockage ([facility]) 5. CKD: baseline 6. Hyperkalemia: reversed 7. DM2: controlled 8. Leukocytosis: reactive. 9. Anemia: suspect chronic dz, with apparent drop since admit, but suspicious for hemoconcentration. check anemia labs. 10. Thrombocytopenia: same drop as Hgb; cannot r/o MDS 11. Dysphagia: cleared for reg diet by swallow study today. 12. Dispo: TO [facility] (vs home) as per cardiology. History of Present Illness History of Present Illness sore throat better, denies any CP or other complaints Vitals Vitals Vital Signs Date Time Temp Pulse Resp B/P (MAP) Pulse Ox O2 Delivery O2 Flow Rate FiO2 07/28/17 09:53 80 136/59 07/28/17 08:00 98.3 24 96 Nasal Cannula 2.0 98.3 Physical Exam General: Alert, Cooperative, Other (sedated) Heart: Regular rate, Other (tachy) Lungs: Clear Abdomen: Soft Extremities: No edema Skin: No rashes Labs LABS Laboratory Tests Test 07/27/17 17:35 07/27/17 20:49 07/28/17 05:45 Glucose (Fingerstick) 134 mg/dL (70-99) 148 mg/dL (70-99) Hemoglobin 8.0 g/dL (12.0-15.5) Hematocrit 24.0 % (36.0-47.0) Mean Corpuscular Hemoglobin Concent 34 g/dL (31-37) Sodium Level 142 mmol/L (136-145) Potassium Level 3.7 mmol/L (3.5-5.1) Chloride Level 106 mmol/L (98-107) Carbon Dioxide Level 28 mmol/L (21-32) Anion Gap 8 (6-14) Blood Urea Nitrogen 30 mg/dL (7-20) Creatinine 2.5 mg/dL (0.6-1.0) Estimated GFR (Cockcroft-Gault) 18.5 Glucose Level 126 mg/dL (70-99) Calcium Level 8.7 mg/dL (8.5-10.1) Phosphorus Level 3.7 mg/dL (2.6-4.7) Magnesium Level 1.9 mg/dL (1.8-2.4) Albumin 2.4 g/dL (3.4-5.0) CARIDAD LIVINGSTON MD Jul 28, 2017 11:39
[2017-07-28 12:00] VITALS: BP 136/58
[2017-07-28 12:14] LABS: % SAT IRON 21 % (15-34); IRON,SERUM 45 ug/dL (50-170)
[2017-07-28 13:27] LABS: FOLATE 9.1 ng/ml (3.2-20.0)
[2017-07-28 16:00] VITALS: BP 131/62
[2017-07-28] MEDS ORDERED: CLOP75TA PO (17:06)
[2017-07-28 19:18] VITALS: BP 130/59
[2017-07-29] MEDS ORDERED: CLOPIDOGREL BISULFATE 75 MG TABLET PO SCH (08:00)
[2017-07-29] MEDS ORDERED: POTASSIUM CHLORIDE 10 MEQ TABLET.ER. PO SCH (08:00)
[2017-07-29] MEDS ORDERED: FUROSEMIDE 40 MG TABLET. PO SCH (09:00)
== END 2017-07-28 19:45 | disposition home or self-care (01) | DRG 871 ==
LOC: ER 18:41 → 1 WEST ICU 19:48
PROVIDERS: ADMIT Internal Medicine; ATTEND Internal Medicine
PROC: 5A1945Z Respiratory Ventilation, 24-96 Consecutive Hours (ICD-10-PCS; principal; 2017-07-23)
PROC: 0BH17EZ Insertion of Endotracheal Airway into Trachea, Via Natural or Artificial Opening (ICD-10-PCS; 2017-07-23)
PROC: 02HV33Z Insertion of Infusion Device into Superior Vena Cava, Percutaneous Approach (ICD-10-PCS; 2017-07-24)
PROC: 5A09357 Assistance with Respiratory Ventilation, Less than 24 Consecutive Hours, Continuous Positive Airway Pressure (ICD-10-PCS; 2017-07-25)
DX: A41.9 Sepsis, unspecified organism (principal); I21.4 Non-ST elevation (NSTEMI) myocardial infarction; J96.21 Acute and chronic respiratory failure with hypoxia; I50.43 Acute on chronic combined systolic (congestive) and diastolic (congestive) heart failure; J18.9 Pneumonia, unspecified organism; D69.6 Thrombocytopenia, unspecified; E11.22 Type 2 diabetes mellitus with diabetic chronic kidney disease; E11.51 Type 2 diabetes mellitus with diabetic peripheral angiopathy without gangrene; I13.0 Hypertensive heart and chronic kidney disease with heart failure and stage 1 through stage 4 chronic kidney disease, or unspecified chronic kidney disease; N18.4 Chronic kidney disease, stage 4 (severe); N17.9 Acute kidney failure, unspecified; J98.11 Atelectasis; E87.5 Hyperkalemia; D64.9 Anemia, unspecified; N18.9 Chronic kidney disease, unspecified; E78.00 Pure hypercholesterolemia, unspecified; E78.5 Hyperlipidemia, unspecified; G47.33 Obstructive sleep apnea (adult) (pediatric); E87.6 Hypokalemia; E83.42 Hypomagnesemia; I25.10 Atherosclerotic heart disease of native coronary artery without angina pectoris; Z51.5 Encounter for palliative care; I65.23 Occlusion and stenosis of bilateral carotid arteries; K21.9 Gastro-esophageal reflux disease without esophagitis; R13.10 Dysphagia, unspecified; Y95 Nosocomial condition; Z83.3 Family history of diabetes mellitus; Z95.1 Presence of aortocoronary bypass graft; Z79.4 Long term (current) use of insulin; Z95.5 Presence of coronary angioplasty implant and graft; Z87.01 Personal history of pneumonia (recurrent); Z88.6 Allergy status to analgesic agent; Z88.1 Allergy status to other antibiotic agents; Z98.49 Cataract extraction status, unspecified eye; Z86.73 Personal history of transient ischemic attack (TIA), and cerebral infarction without residual deficits
CPT/HCPCS: 31500; 36415; 36569; 36600; 51702; 70450; 71010; 80047; 80048; 80061; 80069; 82607; 82728; 82746; 82805; 82962; 83540; 83550; 83605; 83735; 84100; 84484; 85014; 85018; 85025; 85027; 85520; 85610; 85730; 86850; 86900; 86901; 87040; 87641; 93005; 93306; 94002; 94003; 94660; 96365; 96375; G0238; J0692; J1644; J1815; J1940; J2704; J3370; J3475; J3480; J3490; J7030; J7040; S0028; 92526; 92610; 97110; 97116; 97530; 99291-25